=== PATIENT | female | born 1980 | race Caucasian/White ===

== ENCOUNTER 2023-08-13 10:56 | Outpatient (OUT) | payer OTHER, SELFPAY ==
--- NOTE | 2023-08-13 12:00 | XR_ITS ---
The [address] [address] Patient Name: NKECHI CARR MRN: [id number] date: 1980 Sex: F Assigned Patient Location: [facility] Current Patient Location: [facility] Accession/Order Number: [id number] Exam Date: 08/13/2023 12:10 Report Date: 08/13/2023 12:28 At the request of: MAGALI ROMERO Procedure: XR chest 2V EXAM: XR chest 2V HISTORY: Preop exam COMPARISON: None. TECHNIQUE: PA and lateral views of the chest. FINDINGS: The cardiomediastinal silhouette is normal. No focal consolidation is identified. There is no pneumothorax. No pleural effusion is noted. The osseous structures are intact. XR/XR chest 2V IMPRESSION: No acute cardiopulmonary process. Electronically authenticated by: DEX BRYAN Date: 08/13/2023 12:28
== END 2023-08-13 10:57 | disposition home or self-care (01) ==
LOC: PST 10:59
PROVIDERS: Visit Provider Urology
DX: Z01.810 Encounter for preprocedural cardiovascular examination (principal); N20.1 Calculus of ureter
CPT/HCPCS: 71046

== ENCOUNTER 2023-08-21 07:50 | Day surgery (SDC) | payer OTHER, SELFPAY ==
[2023-08-13 11:29] VITALS: PULSE 93; RESP 16; TEMP 36.3; O2SAT 98; BMI 23.8
[2023-08-21] VITALS (10 sets, daily range): BP systolic 113–145; BP diastolic 71–82; PULSE 65–106; RESP 10–18; TEMP 36.7; O2SAT 96–100; BMI 23.5
--- NOTE | 2023-08-21 | FL_ITS ---
[address] [address] Patient Name: NKECHI CARR MRN: [id number] date: 1980 Sex: F Assigned Patient Location: [facility] [place] Current Patient Location: Accession/Order Number: [id number] Exam Date: 08/21/2023 08:57 Report Date: 08/26/2023 09:13 At the request of: MAGALI ROMERO Procedure: FL fluoroscopy <1hr NON-READ EXAM: FL fluoroscopy <1hr NON-READ HISTORY: Left kidney stone TECHNIQUE: FINDINGS: Please see Operative Report. Electronically authenticated by: RADIOLOGIST NO Date: 08/26/2023 09:13
--- OUTSIDE RECORDS SUMMARY | 2023-08-21 07:55 | XMS_ITS | CCD ---
Author Name Unknown Address [address] [place] [address] Organization [facility] Care Team Providers Care Purchase Order Checker Name Role Phone Kaitlyn Beasley III Primary Care Physician Sadie Valdez Unavailable Unavailable ROSA NICHOLSON Attending Unavailable LE ENGLISH Attending Unavailable TROY .LE Consulting Unavailable DR TIFF MORLEY Primary Care Unavailable LE ENGLISH Admitting Unavailable MATIAS .VERO Attending Unavailable DR YASMANI NONE LISTED Primary Care Unavaila LUZ [place] Consulting Unavailable LUE .VERO Admitting Unavailable LUE .VERO Consulting Unavailable DR TIFF MORLEY Primary Care Unavailable MATIAS ., VERO Darnell Admitting Unavailable MATIAS .VERO Attending Unavailable DR YASMANI NONE LISTED Primary Care Unavaila ble LUE ., VERO Darnell Admitting Unavailable LUE .VERO Attending Unavailable DR AIME ADAMS Consulting Unavailable MATIAS .VERO Consulting Unavailable STEPHEN MUNOZ Consulting Unavailable TONY MEJIAS Consulting Unava ilRAUL Preston Consulting Unavailable DR TIFF MORLEY Primary Care Unavailable TROY .LE Admitting Unavailable LE ENGLISH Attending Unavailable DR AIME ADAMS Consulting Unavailable LE ENGLISH Consulting Unavailable DR JAMIE BEASLEY Consulting Unavailable Ramos RODRIGUEZ, Kaitlyn GASPAR Unavailable CLIFFORD PEDROZA Attending Unavailable KAITLYN BEASLEY III Referring UnavailCLIFFORD Trejo Referring Unavailable Walter COLBY Attending Unavailable Vasile Sahni Attending Unavailable Venessa Vasquez Admitting Unavailable Wu ROMERO Consulting Unavailable MD Wu ROMERO Consulting Unavailable Song NAYLOR Consulting Unavailable ROMERO, Wu R Consulting Unavailable ROMERO, Wu R Consulting Unavailable ROMERO, Wu R Consulting Unavailable ROMERO, Wu R Consulting Unavailable ROMERO, Wu R Consulting Unavailable ROMERO, Wu R Consulting Unavailable ROMERO, Wu R Consulting Unavailable ROMERO, Wu R Consulting Unavailable ROMERO, Wu R Consulting Unavailable ROMERO, Wu R Consulting Unavailable ROMERO, Wu R Consulting Unavailable Walter COLBY Attending Unavailable Kaylie RUDD Attending Unavailable ROMERO, Wu R Attending Unavailable Beasley, Kaitlyn R Attending Unavailable Beasley, Kaitlyn R Admitting Unavailable Beasley, Kaitlyn R Attending Unavailable Beasley, Kaitlyn R Referring Unavailable Beasley, Kaitlyn R Admitting Unavailable Walter COLBY Attending Unavailable Walter COLBY Admitting Unavailable Allergies Allergy Classification Reported Allergen(s) Allergy Type Date of Onset Reaction(s) Facility (17 sources) Acetaminophen / HYDROcodone; Translations: [acetaminophen-hyd rocodone] Drug Allergy 01-20-2009 [facility] (16 sources) HYDROcodone; Translations: [hydrocodone] Drug Allergy itch [facility] (18 sources) Morphine; Translations: [morphine] Drug Allergy 01-20-2009 Itching [facility] (1 source) Acetaminophen / HYDROcodone Drug Allergy 12-27-2013 [facility] (1 source) Morphine Drug Allergy 12-27-2009 [facility] (1 source) Acetaminophen / HYDROcodone; Translations: [HYDROCODONE-ACETA MINOPHEN] Drug Allergy 01-20-2009 [facility] Medications Current Medications Medication Drug Class(es) Dates Sig (Normalized) Sig (Original) acetaminophen 325 mg oral tablet (8 sources) Start: 02-16-2021 take 2 tablets by mouth every six hours as needed for pain acetaminophen 325 mg Tab 650 mg = 2 tab(s), Oral, q6hr, PRN Pain, Refills(s) 0 Start Date: 02/16/21 Status: Ordered busPIRone hydrochloride 7.5 mg oral tablet (8 sources) Start: 05-26-2019 take 1 tablet by mouth twice daily busPIRone 7.5 mg oral tablet 7.5 mg = 1 tab(s), Oral, BID, Anxiety Start Date: 05/26/19 Status: Ordered cyproheptadine hydrochloride 4 mg oral tablet (8 sources) Start: 02-14-2021 take 2 tablets by mouth at bedtime cyproheptadine 4 mg Tab 8 mg = 2 tab(s), Oral, Bedtime, Refills(s) 0, Headache Start Date: 02/14/21 Status: Ordered eluxadoline 100 mg oral tablet (9 sources) mu-Opioid Receptor Agonist Start: 11-21-2020 End: 02-27-2022 take 1 tablet by mouth twice daily eluxadoline 100 mg oral tablet 100 mg = 1 tab(s), Oral, BID, # 60 tab(s), Refills(s) 2, Pharmacy: [facility], 152, cm, 11/21/20 12:15:00 EDT, Height/Length Dosing, 57.5, kg, 11/21/20 12:15:00 EDT, Weight Dosing Start Date: 11/21/20 Status: Ordered fluticasone propionate 0.05 mg/actuat metered dose nasal spray (5 sources) Corticosteroid Start: 02-14-2021 take 2 spray(s) nasal route once daily fluticasone 0.05 mg/inh Nasal [place] 2 spray(s), Nasal, Daily, each nostril, Allergy symptoms Start Date: 02/14/21 Status: Ordered fluticasone 0.05 mg/inh Nasal [place] (3 sources) Start: 02-14-2021 take 2 spray(s) nasal route once daily fluticasone 0.05 mg/inh Nasal [place] 2 spray(s), Nasal, Daily, each nostril, Allergy symptoms Start Date: 02/14/21 Status: Ordered levoFLOXacin 750 mg oral tablet (1 source) Quinolone Antimicrobial Start: 07-23-2023 End: 08-02-2023 take 1 tablet by mouth once daily Levaquin 750 mg Tab 750 mg = 1 tab(s), Oral, Daily, X 10 day(s), # 10 tab(s), Refills(s) 0, Pharmacy: [facility], 152, cm, 11/27/23 17:09:00 EST, Height/Length Dosing, 52.5, kg, 07/21/23 17:09:00 EST, Weight Dosing Start Date: 07/23/23 Stop Date: 08/02/23 Status: Ordered nortriptyline 10 mg oral capsule (8 sources) Tricyclic Antidepressant Start: 10-01-2021 take 1 capsule by mouth three times daily nortriptyline 10 mg Cap 10 mg = 1 cap(s), Oral, TID, Refills(s) 0 Start Date: 10/01/21 Status: Ordered omeprazole 40 mg delayed release oral capsule (12 sources) Proton Pump Inhibitor Start: 11-21-2020 take 1 capsule by mouth once daily omeprazole 40 mg Cap-DR 40 mg = 1 cap(s), Oral, Daily, # 30 cap(s), Refills(s) 0, Pharmacy: [facility], 152, cm, 11/29/21 12:15:00 EDT, Height/Length Dosing, 62.7, kg, 11/21/21 9:52:00 EDT, Weight Dosing Start Date: 01/28/22 Status: Ordered omeprazole 40 mg Cap-DR (2 sources) Start: 11-21-2020 take 1 capsule by mouth once daily omeprazole 40 mg Cap-DR 40 mg = 1 cap(s), Oral, Daily, # 30 cap(s), Refills(s) 11, Pharmacy: [facility], 152, cm, 11/21/20 12:15:00 EDT, Height/Length Dosing, 57.5, kg, 11/21/20 12:15:00 EDT, Weight Dosing Start Date: 11/21/20 Status: Ordered 24 hr oxybutynin chloride 5 mg extended release oral tablet (3 sources) Cholinergic Muscarinic Antagonist Start: 2022 End: 06-21-2022 take 1 tablet by mouth once daily as needed oxybutynin 5 mg ER Tab 5 mg = 1 tab(s), Oral, Daily, PRN Urinary discomfort, X 14 day(s), # 21 tab(s), Refills(s) 0, Pharmacy: [facility], 152, cm, 06/05/22 19:43:00 EDT, Height/Length Dosing, 57, kg, 06/05/22 19:43:00 EDT, Weight Dosing Start Date: 06/07/22 Stop Date: 06/21/22 Status: Ordered phenazopyridine hydrochloride 100 mg oral tablet (4 sources) Start: 2022 Pyridium 100 mg Tab 100 mg = 1 tab(s), Oral, TIDPC, PRN Urinary discomfort, # 21 tab(s), Refills(s) 0, Pharmacy: [facility], 152, cm, 06/05/22 19:43:00 EDT, Height/Length Dosing, 57, kg, 06/05/22 19:43:00 EDT, Weight Dosing Start Date: 06/07/22 Status: Ordered tamsulosin hydrochloride 0.4 mg oral capsule (5 sources) alpha-Adrenergic Buck Start: 07-23-2023 End: 07-27-2023 take 1 capsule by mouth once daily as needed Flomax 0.4 mg Cap 0.4 mg = 1 cap(s), Oral, Daily, PRN Urinary discomfort, X 4 day(s), # 4 cap(s), Refills(s) 0, Pharmacy: [facility], 152, cm, 07/21/23 17:09:00 EST, Height/Length Dosing, 52.5, kg, 07/21/23 17:09:00 EST, Weight Dosing Start Date: 07/23/23 Stop Date: 07/27/23 Status: Ordered Start: 07-17-2022 End: 07-17-2022 Flomax 0.4 mg Cap 0.4 mg = 1 cap(s), Cap, Oral, Start date 07/17/22 9:00:00 EST, 07/17/22 4:00:00 EST Start Date: 07/17/22 Stop Date: 07/17/22 Status: Completed Start: 2022 End: 06-21-2022 take 1 capsule by mouth once daily tamsulosin 0.4 mg Cap 0.4 mg = 1 cap(s), Oral, Daily, X 14 day(s), # 14 cap(s), Refills(s) 0, Pharmacy: [facility], 152, cm, 06/05/22 19:43:00 EDT, Height/Length Dosing, 57, kg, 06/05/22 19:43:00 EDT, Weight Dosing Start Date: 06/07/22 Stop Date: 06/21/22 Status: Ordered tiZANidine 4 mg oral tablet (9 sources) Central alpha-2 Adrenergic Agonist Start: 04-30-2015 take 1 tablet by mouth every eight hours as needed for pain tiZANidine 4 mg Tab 4 mg = 1 tab(s), Oral, q8hr, PRN Muscle pain, Refills(s) 0, Muscle pain Start Date: 04/30/15 Status: Ordered End: 05-12-2023 take 1 tablet by mouth once daily at bedtime tiZANidine (ZANAFLEX) 4 mg tablet Take 4 mg by mouth daily at bedtime. 0 05/12/2023 Discontinued Comment on above: Take 4 mg by mouth d aily at bedtime. Completed/Discontinued Medications Medication Drug Class(es) Dates Sig (Normalized) Sig (Original) cephalexin 500 mg oral capsule (14 sources) Cephalosporin Antibacterial Start: 07-10-2022 take 1 capsule by mouth once daily Keflex 500 mg Cap 500 mg = 1 cap(s), Oral, q12hr, take 1 capsule the day prior to procedure, take 2nd capsule the day of procedure, # 2 cap(s), Refills(s) 0, Pharmacy: [facility], 152, cm, 06/14/22 10:19:00 EDT, Height/Length Dosing, 57, kg, 06/14/22 10:19:0... Start Date: 07/10/22 Status: Ordered Start: 2022 End: 06-17-2022 take 1 capsule by mouth four times daily Keflex 500 mg Cap 500 mg = 1 cap(s), Oral, QID, X 10 day(s), # 40 cap(s), Refills(s) 0, Pharmacy: [facility], 152, cm, 06/05/22 19:43:00 EDT, Height/Length Dosing, 57, kg, 06/05/22 19:43:00 EDT, Weight Dosing Start Date: 06/07/22 Stop Date: 06/17/22 Status: Ordered Start: 11-21-2021 Keflex 500 mg Cap 500 mg = 1 cap(s), Oral, As Directed, # 2 cap(s), Refills(s) 0, Pharmacy: [facility], 152, cm, 11/21/21 9:52:00 EDT, Height/Length Dosing, 62.7, kg, 11/21/21 9:52:00 EDT, Weight Dosing Start Date: 11/21/21 Status: Ordered chlordiazePOXIDE hydrochloride 5 mg / clidinium bromide 2.5 mg oral capsule (1 source) Anticholinergic, Benzodiazepine Start: 04-18-2011 End: 05-12-2023 take 1 capsule by mouth at bedtime, then take 5 capsules by mouth once chlordiazepoxide-clidinium (LIBRAX, WITH CLINIDIUM,) 5-2.5 mg ORAL per capsule Take 1 capsule by mouth before meals and at bedtime. 0 04/18/2011 05/12/2023 Discontinued Comment on above: Take 1 capsule by mo ut before meals and at bedtime. gabapentin 300 mg oral capsule (1 source) Anti-epileptic Agent End: 05-12-2023 take 1 capsule by mouth twice daily gabapentin (NEURONTIN) 300 mg capsule Take 300 mg by mouth twice daily. 0 05/12/2023 Discontinued Comment on above: Take 300 mg by mouth twice daily. ibuprofen 800 mg oral tablet (1 source) Nonsteroidal Anti-inflammatory Drug take 1 tablet by mouth every six hours as needed ibuprofen 800 mg tablet Take 800 mg by mouth every 6 hours as needed. 0 Active Comment on above: Take 800 mg by mouth every 6 hours as needed. MEDICATION, NON-DATABASE (1 source) End: 05-12-2023 MEDICATION, NON-DATABASE Problems Active Problems Problem Classification Problem Date Documented Date Episodic/Chronic Abdominal pain (17 sources) Flank pain; Translations: [Unspecified abdominal pain] Onset: 2 03-16-2020 Episodic Anxiety disorders (17 sources) Anxiety; Translations: [Anxiety disorder, unspecified] Onset: 2 02-11-2019 Chronic Bacterial infection; unspecified site (1 source) Bacteremia; Translations: [Bacteremia] Onset: 3 Episodic Calculus of urinary tract (20 sources) Kidney stone; Translations: [Calculus of kidney] Onset: 2 Episodic Complication of device; implant or graft (15 sources) Retained ureteric stent 11-21-2021 Episodic Esophageal disorders (16 sources) Gastroesophageal reflux disease without esophagitis; Translations: [Gastro-esophageal reflux disease without esophagitis] Onset: 2 Chronic Essential hypertension (1 source) Essential (primary) hypertension; Translations: [ESSENTIAL PRIMARY HYPERTENSION] Onset: 2 Chronic Fluid and electrolyte disorders (3 sources) Hypo-osmolality and or hyponatremia; Translations: [Hypo-osmolality and hyponatremia] Onset: 2 Episodic Genitourinary symptoms and ill-defined conditions (3 sources) Device in situ; Translations: [Presence of urogenital implants] Onset: 2 Chronic Genitourinary symptoms and ill-defined conditions (1 source) Urinary tract obstruction; Translations: [Obstructive and reflux uropathy, unspecified] Onset: 2 Episodic Headache; including migraine (15 sources) Headache 05-22-2019 Episodic Mood disorders (17 sources) Mixed bipolar affective disorder, moderate; Translations: [Bipolar disorder] Onset: 2 05-17-2019 Chronic Nonmalignant breast conditions (4 sources) Unspecified lump in the right breast, upper inner quadrant; Translations: [UNS LUMP IN RT BREAST UPR INR QUAD] Onset: 3 Episodic Other aftercare (1 source) Long-term current use of drug therapy; Translations: [Other fci (current) drug therapy] Onset: 3 Episodic Other connective tissue disease (15 sources) Fibromyositis 03-19-2014 Episodic Other connective tissue disease (1 source) Fibromyalgia; Translations: [Fibromyalgia] Onset: 2 Episodic Other diseases of kidney and ureters (15 sources) Hydronephrosis 02-14-2021 Episodic Other diseases of kidney and ureters (15 sources) Hydroureter 02-14-2021 Episodic Other female genital disorders (1 source) Dyspareunia; Translations: [Dyspareunia] Onset: 3 05-20-2013 Chronic Other female genital disorders (15 sources) Polyp of corpus uteri 11-05-2013 Episodic Other female genital disorders (4 sources) Other specified noninflammatory disorders of vagina; Translations: [OTH SPEC NONINFLAMMATORY D/O VAGINA] Onset: 3 Episodic Other gastrointestinal disorders (20 sources) Irritable bowel syndrome; Translations: [Irritable bowel syndrome without diarrhea] Onset: 2 11-05-2013 Chronic Other gastrointestinal disorders (2 sources) Constipation, unspecified; Translations: [Constipation, unspecified] Onset: 2 Episodic Other injuries and conditions due to external causes (1 source) Foreign body in bladder; Translations: [Foreign body in bladder, initial encounter] Onset: 2 Episodic Other nutritional; endocrine; and metabolic disorders (1 source) Overweight in adulthood with body mass index of 25 or more but less than 30; Translations: [Body mass index (BMI) 29.0-29.9, adult] Onset: 2 Episodic Other nutritional; endocrine; and metabolic disorders (15 sources) Body mass index 25-29 - overweight 11-03-2019 Episodic Residual codes; unclassified (1 source) H/O: Disorder; Translations: [Personal history of other specified conditions] Onset: 2 Episodic Residual codes; unclassified (2 sources) Procedure carried out on subject; Translations: [Encounter for prophylactic measures, unspecified] Onset: 2 Episodic Septicemia (except in labor) (3 sources) Sepsis; Translations: [Sepsis, unspecified organism] Onset: 2 Episodic Spondylosis; intervertebral disc disorders; other back problems (15 sources) Degeneration of intervertebral disc 05-22-2019 Chronic Spondylosis; intervertebral disc disorders; other back problems (15 sources) Cervical radiculopathy 02-11-2019 Episodic Substance-related disorders (20 sources) Cannabis dependence, continuous; Translations: [Smoker] Onset: 2 02-11-2019 Chronic Comment on above: Added secondary to d ocumentation in Social History. Unclassified (15 sources) Asymptomatic microscopic hematuria 03-16-2020 Unclassified (1 source) CONTACT W/AND (SUSP) EXPOS COVID-19; Translations: [CONTACT W/AND (SUSP) EXPOS COVID-19] Onset: 2 Urinary tract infections (19 sources) Urinary tract infectious disease; Translations: [Acute tubulointerstitial nephritis] Onset: 2 02-14-2021 Episodic Past or Other Problems Problem Classification Problem Date Documented Date Episodic/Chronic Contraceptive and procreative management (1 source) Intrauterine contraceptive device in situ; Translations: [Encounter for routine checking of intrauterine contraceptive device] Onset: 04-19-2011 04-19-2011 Episodic Deficiency and other anemia (1 source) Anemia, unspecified; Translations: [ANEMIA UNSPECIFIED] Onset: 07-11-2022 Episodic Other connective tissue disease (1 source) Fibromyalgia; Translations: [FIBROMYALGIA] Onset: 07-11-2022 Episodic Substance-related disorders (2 sources) Cannabis misuse; Translations: [Cannabis use, unspecified, uncomplicated] Onset: 06-06-2022 Episodic Results Test Name Value Interpretation Reference Range Facility Insurance Correspondenceon 1 10-14-2022 Insurance Correspondence [id number] Normal [facility] Consent for Procedure/Surger yon 07-31-2023 Consent for Procedure/Surgery [id number] Normal [facility] Patient Educationon 07-31-20 Patient Education Nephrology Laser Therapy for Kidney Stones Laser therapy for kidney stones is a procedure to break up small, hard mineral deposits that form in the kidney (kidney stones). The procedure is done using a device that produces a focused beam of light (laser). The laser breaks up kidney stones into pieces that are small enough to be passed out of the body through urination or removed from the body during the procedure. You may need laser therapy if you have kidney stones that are painful or block your urinary tract. This procedure is done by inserting a tube (ureteroscope) into your kidney through the urethral opening. The urethra is the part of the body that drains urine from the bladder. In women, the urethra opens above the vaginal opening. In men, the urethra opens at the tip of the penis. The ureteroscope is inserted through the urethra, and surgical instruments are moved through the bladder and the muscular tube that connects the kidney to the bladder (ureter) until they reach the kidney. Tell a health care provider about: ? Any allergies you have. ? All medicines you are taking, including vitamins, herbs, eye drops, creams, and zfwt-clb-abrnypa medicines. ? Any problems you or family members have had with anesthetic medicines. ? Any blood disorders you have. ? Any surgeries you have had. ? Any medical conditions you have. ? Whether you are or may be . What are the risks? Generally, this is a safe procedure. However, problems may occur, including: ? Infection. ? Bleeding. ? Allergic reactions to medicines. ? Damage to the urethra, bladder, or ureter. ? Urinary tract infection (UTI). ? Narrowing of the urethra (urethral stricture). ? Difficulty passing urine. ? Blockage of the kidney caused by a fragment of kidney stone. What happens before the procedure? Medicines ? Ask your health care provider about: ? Changing or stopping your regular medicines. This is especially important if you are taking diabetes medicines or blood thinners. ? Taking medicines such as aspirin and ibuprofen. These medicines can thin your blood. Do not take these medicines unless your health care provider tells you to take them. ? Taking parl-ztg-spdvmvx medicines, vitamins, herbs, and supplements. Eating and drinking Follow instructions from your health care provider about eating and drinking, which may include: ? 8 hours before the procedure ? stop eating heavy meals or foods, such as meat, fried foods, or fatty foods. ? 6 hours before the procedure ? stop eating light meals or foods, such as toast or cereal. ? 6 hours before the procedure ? stop drinking milk or drinks that contain milk. ? 2 hours before the procedure ? stop drinking clear liquids. Staying hydrated Follow instructions from your health care provider about hydration, which may include: ? Up to 2 hours before the procedure ? you may continue to drink clear liquids, such as water, clear fruit juice, black coffee, and plain tea. General instructions ? You may have a physical exam before the procedure. You may also have tests, such as imaging tests and blood or urine tests. ? If your ureter is too narrow, your health care provider may place a soft, flexible tube (stent) inside of it. The stent may be placed days or weeks before your laser therapy procedure. ? Plan to have someone take you home from the hospital or clinic. ? If you will be going home right after the procedure, plan to have someone stay with you for 24 hours. ? Do not use any products that contain nicotine or tobacco for at least 4 weeks before the procedure. These products include cigarettes, e-cigarettes, and chewing tobacco. If you need help quitting, ask your health care provider. ? Ask your health care provider: ? How your surgical site will be marked or identified. ? What steps will be taken to help prevent infection. These may include: ? Removing hair at the surgery site. ? Washing skin with a germ-killing soap. ? Taking antibiotic medicine. What happens during the procedure? ? An IV will be inserted into one of your veins. ? You will be given one or more of the following: ? A medicine to help you relax (sedative). ? A medicine to numb the area (local anesthetic). ? A medicine to make you fall asleep (general anesthetic). ? A ureteroscope will be inserted into your urethra. The ureteroscope will send images to a video screen in the operating room to guide your surgeon to the area of your kidney that will be treated. ? A small, flexible tube will be threaded through the ureteroscope and into your bladder and ureter, up to your kidney. ? The laser device will be inserted into your kidney through the tube. Your surgeon will pulse the laser on and off to break up kidney stones. ? A surgical instrument that has a tiny wire basket may be inserted through the tube into your kidney to remove the pieces (more content not included)... Normal [facility] IntraOperative Documentson 1 09-28-2022 IntraOperative Documents [id number] [facility] Consent for Anesthesiaon Consent for Anesthesia [id number] [facility] Discharge Instructionson Discharge Instructions [id number] [facility] Comment on above: Other Comment: wrong patient Discharge Instructions [id number] [facility] General Message Officeon General Message Office --- --- --- --- - -- --- --- --- --- From: Linus AguayoInbox To: NKECHI CARR Sent: 07/24/23 02:30:14 AM EST Subject: Discharge Summary Ready to View A summary regarding your recent visit is available in the Documents section of your health record. Normal [facility] IntraOperative Documentson 1 09-23-2022 IntraOperative Documents [id number] Normal [facility] Main OR Intraoperative Recor don 07-24-2023 Main OR Intraoperative Record IntraOp Document Type FT Summary Primary Physician: Wu ROMERO MD Finalized Date/Time: 07/24/23 12:12:57 Pt. Name: NKECHI CARR Jo-Ann SotoB./Sex: 1980 Female Med Rec #: [id number] Physician: Venessa Vasquez MD Financial #: [id number] Pt. Type: I Room/Bed: [place] [address] Admit/Disch: 07/21/23 16:57:47 - 07/23/23 15:17:22 Institution: Case Times FT Entry 1 Patient Times In Room 07/23/23 07:37:00 Out Room 07/23/23 08:02:00 Procedure Times Start 07/23/23 07:48:00 Stop 07/23/23 07:53:00 Anesthesia Times Start 07/23/23 07:37:00 Stop 07/23/23 08:02:00 Last Modified By: Elizabeth Brito RN 07/23/23 08:02:22 General Comments: 07/24/23 Chart opened to review and send charges [facility] Case Attendance FT Entry 1 Entry 2 Entry 3 Case Attendee Faith RAMESH, oSng ROMERO MD, Felipe Gonzales Role Performed Anesthesiologist Surgeon - Primary Scrub - Primary Business Management Professor Time In 07/23/23 07:37:00 07/23/23 07:37:00 07/23/23 07:37:00 Time Out 07/23/23 08:02:00 07/23/23 08:02:00 07/23/23 08:02:00 Procedure CYSTOSCOPY RETROGRADE CYSTOSCOPY RETROGRADE CYSTOSCOPY RETROGRADE STENT INSERTION(Left) STENT INSERTION(Left) STENT INSERTION(Left) Comments DR ELIZONDO SUPERVISING Last Modified By: Daryl SANTA, Elizabeth Brito RN, Elizabeth Awad RN 07/23/23 08:02:23 07/23/23 08:02:23 07/23/23 08:02:23 Entry 4 Case Attendee Elizabeth Brito RN Role Performed Research Compliance Specialist - Relief Time In 07/23/23 07:37:00 Time Out 07/23/23 08:02:00 Procedure CYSTOSCOPY RETROGRADE STENT INSERTION(Left) Comments Last Modified By: Elizabeth Brito RN 07/23/23 08:02:23 Perioperative Protocols FT Pre-Care Text: Implements protective measures prior to operative or invasive procedure, confirms identity before the operative or invasive procedure, verifies operative procedure, surgical site, and laterality Entry 1 Procedure(s) CYSTOSCOPY RETROGRADE Patient Identity Birthday, ID Band STENT INSERTION(Left) Verified (select at Check, Patient least 2): Participation Consents / H and P Anesthesia Consent, Operative Site Present Verified HandP, Surgery/Procedure Marking Verified Consent Surgical Site Yes Laterality Verified Yes Verified Procedure Verified Yes Correct Patient Yes Position Verified Availability Equipment, Implant, Prep Dry n/a Verified (If Medication, X-ray Applicable) Time Out Song Lopez Time Out Complete 07/23/23 07:46:00 Participants HEATHER Carias MD, Andres Hutchinson Kendall R, Elizabeth Brito RN Outcomes Met? Yes Last Modified By: Elizabeth Brito RN 07/23/23 07:50:16 Post-Care Text: The patient is free from signs and symptoms of injury caused by extraneous objects Allergy Information FT Pre-Care Text: Verifies allergies Entry 1 Allergies Reviewed? Yes Allergies Reviewed Self/Patient With Outcomes Met? Yes Last Modified By: Elizabeth Brito RN 07/23/23 07:22:42 Post-Care Text: The patient received appropriate medication(s) safely administered during the perioperative period Surgical Procedures FT Entry 1 Procedure Description Procedure CYSTOSCOPY RETROGRADE Modifiers Left STENT INSERTION Surgeon Description CYSTOSCOPY WITH LEFT STENT PLACEMENT Primary Procedure Yes Primary Surgeon Wu ROMERO MD Start 07/23/23 07:48:00 Stop 07/23/23 07:53:00 Anesthesia Type General Surgical Service Urology Wound Class 2 - Clean-Contaminated Last Modified By: Elizabeth Brito RN 07/23/23 08:15:50 General Case Data FT Pre-Care Text: Classifies surgical wound, implements aseptic technique, initiates traffic control Entry 1 Case Information OR OR 1 FT Case Level Level 3 Wound Class 2 - Clean-Contaminated Specialty Urology ASA Class 2 Preop Diagnosis LEFT URETERAL STONE Postop Same As Preop Yes Postop Diagnosis LEFT URETERAL STONE Outcomes Met? Yes Last Modified By: Elizabeth Brito RN 07/23/23 07:22:36 Post-Care Text: The patient is free from signs and symptoms of infection Skin Assessment (Pre Procedure) FT Pre-Care Text: Implements protective measures to prevent skin/ tissue injury due to thermal or mechanical sources Evaluates for signs and symptoms of physical injury to skin and tissue Entry 1 Skin Integrity Intact, [place], Warm, and Skin Abnormality No Dry Outcomes Met? Yes Last Modified By: Elizabeth Brito RN 07/23/23 08:16:00 Post-Care Text: The patient is free from signs and symptoms of injury caused by extraneous objects Patient Positioning FT Pre-Care Text: Identifies physical alterations that require additional precautions for procedure-specific positioning, verifies presence of prosthetics or corrective devices, positions the patient, evaluates the patient for signs and symptoms of injury as a result of positioning Entry 1 Procedure CYSTOSCOPY RETROGRADE Body Position Low Lithotomy STENT INSERTION(Left) Fe (more content not included)... Normal [facility] Auto DiffOrdered By: SYSTEM SYSTEM on 07-23-2023 Basophils/100 WBC (Bld) 0.3 % Normal 0.0-2.0 F [facility]eAutoSS Comment on above: Order Comment: Order Added by Discern Expert. Performed By: #### 2 057319, [id number], 0474575, [id number] ####[facility] [address] [place] [address] Basophils/Leukocytes Auto (Bld) [Pure # fraction] 0.0 E9/L Normal 0.0-0.2 FT HemeAutoSS Comment on above: Order Comment: Order Added by Discern Expert. Performed By: #### 2 220225, [id number], 1637034, [id number] ####[facility] [address] [place] [address] Eosinophils/100 WBC (Bld) 0.1 % Normal 0.0-8.0 FT HemeAutoSS Comment on above: Order Comment: Order Added by Pretty Expert. Performed By: #### 2 478917, 73775746, 4167651, 8789214 ####[facility] [address] [address] Eosinophils/Leukocytes Auto (Bld) [Pure # fraction] 0.0 E9/L Normal 0.0-0.5 [facility]eAutoSS Comment on above: Order Comment: Order Added by Discern Expert. Performed By: #### 2 023536, [id number], 3865648, 4561852 ####[facility] [address] [address] Lymphocytes/100 WBC (Bld) 5.2 % Low 14.0-50.0 [facility]eAutoSS Comment on above: Order Comment: Order Added by Pretty Expert. Performed By: #### 2 710327, 44540162, 6642703, 2810384 ####[address] [address] Lymphocytes/Leukocytes Auto (Bld) [Pure # fraction] 0.7 E9/L Low 1.0-4.0 [facility] HemeAutoSS Comment on above: Order Comment: Order Added by Pretty Expert. Performed By: #### 2 305969, 46193080, 5522952, 6456229 ####[address] [address] Monocytes/100 WBC (Bld) 6.7 % Normal 4.0-14.0 F C HemeAutoSS Comment on above: Order Comment: Order Added by Discern Expert. Performed By: #### 2 280401, 44812753, 7387682, 5860423 ####[address] [address] Monocytes/Leukocytes Auto (Bld) [Pure # fraction] 0.9 E9/L Normal 0.2-1.0 [facility]eAutoSS Comment on above: Order Comment: Order Added by Pretty Expert. Performed By: #### 2 142169, 60362547, 6558759, 9668712 ####[address] [address] Neutrophils/100 WBC (Bld) 87.7 % High 36.0-75.0 FT HemeAutoSS Comment on above: Order Comment: Order Added by Discern Expert. Performed By: #### 2 922822, 38091630, 3532940, 7045385 ####[facility] [address] [place] [address] Neutrophils/Leukocytes Auto (Bld) [Pure # fraction] 11.4 E9/L High 2.0-7.5 FT HemeAutoSS Comment on above: Order Comment: Order Added by Discern Expert. Performed By: #### 2 260146, 02210107, 0179048, 8016514 ####[address] [place] [address] BMPOrdered By: SYSTEM SYSTEM on 07-23-2023 Anion gap [Moles/Vol] 5 mmol/L Low 6-16 F[facility] C Remisol Comment on above: Performed By: #### 2 239599, 33837158, 5269658, 2141199 ####[address] [place] [address] Calcium [Mass/Vol] 7.8 mg/dL Low 8.9-11.1 FT R emisol Comment on above: Performed By: #### 2 535760, 46718155, 9690235, 7536510 ####[facility] [address] [place] [address] Chloride [Moles/Vol] 109 mmol/L Normal 101-111 FT Remisol Comment on above: Performed By: #### 2 464280, 81678660, 8962349, 8938956 ####[facility] [address] [place] [address] CO2 [Moles/Vol] 23 mmol/L Normal 21-31 FT Esteban rosa Comment on above: Performed By: #### 2 875946, 05548061, 1317960, 5668436 ####[facility] [address] [place] [address] Creatinine [Mass/Vol] 1.1 mg/dL Normal 0.5-1.3 F[facility] C Remisol Comment on above: Performed By: #### 2 567387, 91136785, 9161159, 7911775 ####[facility] [address] [place] [address] Glucose [Mass/Vol] 96 mg/dL Normal 55-199 [facility] R emisol Comment on above: Interpretive Data: I f this glucose result represents a fasting glucose, interpretation should refer to the following reference range: 55-99 mg/dL Result Comment: If t his glucose result represents a fasting glucose, interpretation should refer to the following reference range: 55-99 mg/dL Performed By: #### 2 275559, 89826144, 9158670, 9873881 ####[facility] [address] [place] [address] Potassium [Moles/Vol] 3.4 mmol/L Low 3.5-5.3 F[facility] C Remisol Comment on above: Performed By: #### 2 777548, 48974543, 9039783, 4100671 ####[facility] [address] [place] [address] Sodium [Moles/Vol] 134 mmol/L Low 135-145 FT R emisol Comment on above: Performed By: #### 2 504134, 20527943, 6192604, 3653054 ####[facility] [address] [place] [address] Urea nitrogen [Mass/Vol] 13 mg/dL Normal 5-21 FT Remisol Comment on above: Performed By: #### 2 021549, 68024961, 3685172, 0651614 ####[facility] [address] [place] [address] BMPon 07-23-2023 Urea nitrogen/Creatinine [Mass ratio] 12 No Units Normal 10-20 [facility] Comment on above: Performed By: #### 2 287150, 65409757, 2710264, 8461300 ####[facility] [address] [place] [address] C Urineon 07-23-2023 Bacteria identified Cx Nom (U) Microbiology PROCEDURE: Urine Culture [R1] SOURCE: U CleanCatch BODY SITE: COLLECTED DATE/TIME: 07/21/2023 18:02 EST RECEIVED DATE/TIME: 07/21/2023 20:12 EST START DATE/TIME: 07/21/2023 20:12 EST FREE TEXT SOURCE: Bekah Thomas, Jennifer Godfrey M.D., Jennifer Woods FINAL REPORTS Final Report [] Verified Date/Time: 07/23/2023 09:24 EST 70,000 cfu/ml Escherichia coli SUSCEPTIBILITY RESULTS LEGEND: S=Susceptible, N/R=Not Reported, Blank=Data not available, or drug not advisable or tested, I=Intermediate, ESBL=Extended spectrum beta-lactamase, R=Resistant, TFG=Thymidine-depen dent strain, PARMJIT=Beta-lactamase positive, KALYAN=mcg/m;(mg/L), S*=Predicted susceptible interp, R*=Predicted resistant interp EC Antibiotic KALYAN Dilutn KALYAN Interp Amikacin <=16 S Ampicillin <=8 S Ampicillin/ <=8/4 S Sulbactam Aztreonam <=4 S Cefazolin <=2 S Cefepime <=2 S Cefoxitin <=8 S Ceftazidime <=1 S Ceftazidime/ <=8 S Avibactam Ceftriaxone <=1 S Ciprofloxacin <=1 S Ertapenem <=0.5 S Gentamicin <=4 S Levofloxacin <=2 S Meropenem <=1 S Nitrofurantoin <=32 S Piperacillin/ <=16 S Tazobactam Tetracycline <=4 S Tigecycline <=2 S Tobramycin <=4 S Trimethoprim/ <=2/38 S Sulfa Performing Locations R1: This test was performed at: [facility], [address] [place] [address], [address]- , , Normal [facility] Comment on above: Performed By: #### 1 [id number], [id number] ####[address] [address] CBC w/ Auto DiffOrdered By: Sheila Fry on 07-23-2023 Erythrocyte distribution width (RBC) [Ratio] 13.0 % Normal 10.9-14.2 [facility] HemeAutoSS Comment on above: Performed By: #### 2 723207, 51782165, 8274665, 8355643 ####[address] [address] Hematocrit (Bld) [Volume fraction] 32.6 % Low 34.0-46.0 [facility] HemeAutoSS Comment on above: Performed By: #### 2 170790, 29632605, 1911749, 9055735 ####[address] [address] Hemoglobin (Bld) [Mass/Vol] 11.1 g/dL Low 12.0-16.0 [facility] HemeAutoSS Comment on above: Performed By: #### 2 796359, 77567836, 6586650, 4389286 ####[address] [address] MCH (RBC) [Entitic mass] 30.1 pg Normal 27.0-34.0 [facility] HemeAutoSS Comment on above: Performed By: #### 2 458423, 99511337, 3058428, 8983854 ####[place] [address] MCHC (RBC) [Mass/Vol] 34.1 g/dL Normal 31.4-36.0 [facility] C HemeAutoSS Comment on above: Performed By: #### 2 264310, 38525039, 7494170, 3050830 ####[place] [address] MCV (RBC) [Entitic vol] 88.4 fL Normal 80.0-100.0 [facility] Comment on above: Performed By: #### 2 264100, 66862576, 0755830, 0381166 ####[place] [address] Platelet mean volume (Bld) [Entitic vol] 8.5 fL Normal 6.4-10.8 [facility]eAuto[facility] Comment on above: Performed By: #### 2 486053, 35397657, 5216912, 5773969 ####[place] [address] Platelets (Bld) [#/Vol] 173.0 E9/L Normal 150.0-500.0 [facility]eAutoSS Comment on above: Performed By: #### 2 643960, 62141726, 1907324, 7919888 ####[place] [address] RBC (Bld) [#/Vol] 3.7 E12/L Low 4.3-5.9 [facility]eAuto[facility] Comment on above: Performed By: #### 2 670258, 69114700, 6884798, 9044014 ####[place] [address] WBC corrected for nucl RBC Auto (Bld) [#/Vol] 13.0 E9/L High 4.0-11.0 [facility]Auto[facility] Comment on above: Performed By: #### 2 673632, 55671177, 2052134, 7216231 ####[place] [address] CHEMISTRYOrdered By: SYSTEM SYSTEM on 07-23-2023 Urea nitrogen/Creatinine [Mass ratio] 12 mg/mg Normal - [facility] Remisol Consent for Procedure/Surger yon 07-23-2023 Consent for Procedure/Surgery [id number] 25#[id number] Normal [facility] Consultation Noteon 07-23-20 Consultation Note Patient: NKECHI CARR Age: 43 years Sex: Female : 1980 Associated Diagnoses: None Author: HEATEHR BAILEY, Wu Piña History of Present Illness X this 43-year-old lady developed left flank pain about 2 months ago. She states that it was intermittent and it felt as though it was from a stone. It was not until 3 to 4 days ago when she developed shaking chills and fevers that her pain started to intensify. She finally presented to the emergency room with the above complaints. Her urine looked infected. She was pancultured. Her white count was 25,000. CT scan showed a 13 mm left UPJ stone causing ipsilateral hydronephrosis and perinephric stranding. There was also a 6 mm stone in the kidney and a 3 mm stone in the right kidney upper pole nonobstructing. She was admitted and given fluid resuscitation and Rocephin. Overnight her white count minimally decreased and she was also still having pain. Levaquin was then started. Today, her white count has come down to 13,000. She is still having pain. Upon questioning her further she states that she has had over 30 stones throughout her life. She gets at least a few every year. She unfortunately was discharged from our practice in the recent past due to repeat noncompliance with appointments. She was seen at [place] [facility] but nothing was done for her stones. Review of Systems ROS reviewed as documented in chart Health Status Allergies: Allergic Reactions (Selected) Severity Not Documented HYDROcodone- Itch. Morphine- Itching. Vicodin- Itching., Allergies (3) Active Reaction HYDROcodone itch morphine itching Vicodin itching Current medications: (Selected) Inpatient Medications Ordered Ativan 2 mg/mL Injection: 0.5 mg = 0.25 mL, Injection, IV Push, q4hr PRN Anxiety, Routine, Start date 07/21/23 21:46:00 EST, 07/21/23 21:46:00 EST HYDROmorphone 1 mg/mL injectable solution: 0.4 mg = 0.4 mL, Injection, IV Push, q4min PRN Pain for 5 dose(s), Stop date Limited # of times, Routine, Start date 07/23/23 7:17:00 EST, 07/23/23 7:17:00 EST Lactated Ringers IV Rosa 1000 mL 1,000 mL: 1,000 mL, IV, 100 mL/hr, Routine, Start date 07/23/23 7:17:00 EST, 10 hour(s), Total volume (mL): 1,000, 52.5 kg, 1.49, m2 Lactated Ringers IV Rosa 1000 mL 1,000 mL: 1,000 mL, IV, 150 mL/hr, Routine, Start date 07/23/23 5:02:00 EST, 6.7 hour(s), Total volume (mL): 1,000, 52.5 kg, 1.49, m2 NS 1000 mL Soln-IV 1,000 mL: 1,000 mL, IV, 150 mL/hr, Routine, Start date 07/21/23 20:40:00 EST, 6.7 hour(s), Total volume (mL): 1,000, 52.5 kg, 1.49, m2 Phenergan 25 mg/mL Injection: 12.5 mg = 0.5 mL, Injection, IV Push, q2min PRN Other (see comment) for 2 dose(s), Stop date Limited # of times, Routine, Start date 07/23/23 7:17:00 EST, 07/23/23 7:17:00 EST Zofran 4 mg/2 mL Injection: 4 mg = 2 mL, Injection, IV Push, q6hr PRN Nausea, Routine, Start date 07/21/23 20:40:00 EST, 07/21/23 20:40:00 EST acetaminophen additive + Generic Diluent 100 mL: 1,000 mg = 100 mL, Soln-IV, IV Piggyback, q6hr PRN Pain, Routine, Start date 07/21/23 20:40:00 EST, 400 mL/hr, Infuse over 15 minute(s) ceftriaxone additive + Sodium Chloride 0.9% intravenous solution 50 mL: 2,000 mg = 1 EA, Injection, IV Piggyback, Daily, Routine, Start date 07/22/23 9:00:00 EST, 100 mL/hr, Infuse over 30 minute(s) ketorolac 60 mg/2 mL Injection: 30 mg = 1 mL, Injection, IV Push, q6hr PRN Pain, Routine, Start date 07/21/23 20:40:00 EST, 07/21/23 20:40:00 EST Prescriptions Prescribed Keflex 500 mg Cap: 500 mg = 1 cap(s), Oral, q12hr, take 1 capsule the day prior to procedure, take 2nd capsule the day of procedure, # 2 cap(s), Refills(s) 0, Pharmacy: [facility], 152, cm, 06/14/22 10:19:00 EDT, Height/Length Dosing, 57, kg, 06/14/22 10:19:0..., Medications (10) Active Scheduled: (1) ceftriaxone + Sodium Chloride 0.9% Minibag 50 mL 2,000 mg 1 EA, IV Piggyback, Daily Continuous: (3) Lactated Ringers 1,000 mL 1,000 mL, IV, 150 mL/hr Lactated Ringers 1,000 mL 1,000 mL, IV, 100 mL/hr Sodium Chloride 0.9% 1,000 mL 1,000 mL, IV, 150 mL/hr PRN: (6) acetaminophen + Generic Diluent 100 mL 1,000 mg 100 mL, IV Piggyback, q6hr HYDROmorphone 1 mg/mL SOLN [F] 0.4 mg 0.4 mL, IV Push, q4min ketorolac (60 mg) 30 mg/mL Inj 2 mL [F] 30 mg 1 mL, IV Push, q6hr LORazepam 2 mg/mL Inj [F] 0.5 mg 0.25 mL, IV Push, q4hr ondansetron 2 mg/mL Inj [F] 4 mg 2 mL, IV Push, q6hr promethazine 25 mg/mL Inj [F] 12.5 mg 0.5 mL, IV Push, q2min Problem list: All Problems Fibromyalgia syndrome / SNOMED CT [id number] / Confirmed DDD (degenerative disc disease) / SNOMED CT [id number] / Confirmed Anxiety / SNOMED CT 87389775 / Confirmed Cervical radiculopathy / SNOMED CT 105432468 / Confirmed Headache / SNOMED CT 77728956 / Confirmed Cannabis dependence, continuous use / SNOMED CT 224487620 / Confirmed Flank pain / SNOMED CT 834339373 / Confirmed Ureteral stone / SNOMED CT 67754702 (more content not included)... Normal [facility] Comment on above: Result Comment: Elec tronically Signed By: HEATHER BAILEY, Wu Bobby.br\Date and Time Signed: 07/23/23 08:12 EST Inpatient Clinical Summaryon 07-23-2023 Inpatient Clinical Summary [place] [id number] Clinical Summary Person Information: Name: NKECHI CARR Age: 43 Years : 1980 Sex: Female PCP: Kaitlyn Beasley III, DO Marital Status: Single Race: White Ethnicity: Non- or Language: Filipino Visit Id: Visit Reason: Nausea; Flank pain; SEVERE PAIN - CAN'T BREATHE DEEP, WHOLE LEFT SIDE IS HURTING Speciality: Acuity: Enc Type: Inpatient Med Service: Medical Arrival: 07/21/2023 16:57:47 Discharge: Dispo Type: Admitted as IP to this Hosp Address: [address] [place] [id number] Provider Notes: Diagnosis: 1:Sepsis; 3:Obstruction of left ureteropelvic junction (UPJ) due to stone; 5:Bacteremia; 7:Anxiety; 8:Smoker; 10:On deep vein thrombosis (DVT) prophylaxis Problems Active IBS (irritable bowel syndrome) Chronic GERD Ureteral stent retained Hydroureter on right Hydronephrosis of right kidney Urinary tract infection Renal calculus, right Flank pain Smoker Kidney stone Asymptomatic microscopic hematuria BMI 29.0-29.9,adult DDD (degenerative disc disease) Headache Ureteral stone Cannabis dependence, continuous use Anxiety Cervical radiculopathy Fibromyalgia syndrome Smoking Status: Former Smoker Functional Status: Sensory Deficits: History of Falls: Mobility Assistance Prior to Admission: ADLs: Independent Current Level of Assistance for Self-Care/Mobility: Cognitive Status: Oriented x 3 Allergies Vicodin (itching) morphine (itching) HYDROcodone (itch) Measurements: Height: 149.86 cm Weight: 56.2 kg Blood Pressure: 117 mmHg / 79 mmHg BMI: 25.16 kg/m2 Procedures No Procedures Documented Immunizations No Immunizations Documented This Visit Final Med List: levofloxacin (Levaquin 750 mg Tab) 1 Tablets By Mouth every day for 10 Days. Refills: 0. tamsulosin (Flomax 0.4 mg Cap) 1 Capsules By Mouth every day as needed Urinary discomfort for 4 Days. Refills: 0. Care Team Members: Attending Physician: Venessa Vasquez MD Consulting Physician: Wu ROMERO MD Referring Physician: Follow up: With: Address: When: Wu ROMERO [facility], [address], [place] [address] Business (1) Comments: Doctor's office will call about appointment With: Address: When: Kaitlyn Beasley [address] [place] [address] Business (1) 07/29/2023 8:30 AM Patient Education Information: Kidney Stones; Pyelonephritis, Adult; Urosepsis, Adult Levaquin Normal [facility] Inpatient Patient Summaryon 07-23-2023 Inpatient Patient Summary [facility] [address] [place], [place] [address] Patient Discharge Instructions PERSON INFORMATION Name: NKECHI CARR Date of : 1980 Current Date: 07/23/2023 14:49:27 PHYSICIANS Admitting Physician: Venessa Vasquez MD Primary Care Physician: Kaitlyn Beasley III, DO PCP Comment: Discharge Diagnosis: 1:Sepsis; 3:Obstruction of left ureteropelvic junction (UPJ) due to stone; 5:Bacteremia; 7:Anxiety; 8:Smoker; 10:On deep vein thrombosis (DVT) prophylaxis Condition at Discharge: Stable NKECHI CARR has been given the following list of follow-up instructions, prescriptions, and patient education materials: PATIENT FOLLOW-UP INFORMATION Diet: Regular Discharge Activity: Activity as tolerated Discharge Restrictions: No driving for 24 hrs, Do not operate machinery or tools, Do not make important decisions for 24 hours, Do not drink alcoholic beverages for 24 hours Wound Care Instructions: Remove Your Dressing In Days Call Your Doctor For: IF UNABLE TO CONTACT YOUR PHYSICIAN AND YOU FEEL IT IS AN EMERGENCY, GO TO THE NEAREST EMERGENCY ROOM OR CALL 911 Home Treatment: Devices/Equipment: None Special Services: Additional Instructions: Urine Culture grew Ecoli (stool); Blood cultures negative x 2 days. Primary Care Physician to provide the following pending test results: None Follow up: With: Address: When: Wu ROMERO [facility], [address], [place] [address] Business (1) Comments: Doctor's office will call about appointment With: Address: When: [address], [facility] [place] [address] Business (1) 07/29/2023 8:30 AM In the event that this physician does not participate in your insurance network, please consult with your insurance company to find a nearby participating provider. Comment: LILLY Ware MICHELLE A, have received the attached patient education materials/instructi ons and have verbalized understanding: Patient Signature Date Clinican/Nurse Signature Date HERE ARE THE MEDICATION CHANGES THAT OCCURRED DURING YOUR HOSPITAL STAY New Medications [facility], [address] [place], [place] [id number], [phone] levofloxacin (Levaquin 750 mg Tab) 1 Tablets By Mouth every day for 10 Days. Refills: 0. Last Dose: Next Dose: tamsulosin (Flomax 0.4 mg Cap) 1 Capsules By Mouth every day as needed Urinary discomfort for 4 Days. Refills: 0. Last Dose: Next Dose: No Longer Take the Following Medications cephalexin (Keflex 500 mg Cap) 1 Capsules By Mouth every 12 hours. take 1 capsule the day prior to procedure, take 2nd capsule the day of procedure. Refills: 0. Comment: MEDICATION LIST PROVIDED FOR YOU IS A LIST OF YOUR CURRENT MEDICATIONS. PLEASE CARRY THIS WITH YOU AT ALL TIMES. levofloxacin (Levaquin 750 mg Tab) 1 Tablets By Mouth every day for 10 Days. Refills: 0. tamsulosin (Flomax 0.4 mg Cap) 1 Capsules By Mouth every day as needed Urinary discomfort for 4 Days. Refills: 0. Pharmacy Information: [facility] [place] Comment: PATIENT EDUCATION INFORMATION Instructions: Kidney Stones Kidney stones are solid, rock-like deposits that form inside of the kidneys. The kidneys are a pair of organs that make urine. A kidney stone may form in a kidney and move into other parts of the urinary tract, including the tubes that connect the kidneys to the bladder (ureters), the bladder, and the tube that carries urine out of the body (urethra). As the stone moves through these areas, it can cause intense pain and block the flow of urine. Kidney stones are created when high levels of certain minerals are found in the urine. The stones are usually passed out of the body through urination, but in some cases, medical treatment may be needed to remove them. What are the causes? Kidney stones may be caused by: ? A condition in which certain glands produce too much parathyroid hormone (primary hyperparathyroidism ), which causes too much calcium buildup in the blood. ? A buildup of uric acid crystals in the bladder (hyperuricosuria). Uric acid is a chemical that the body produces when you eat certain foods. It usually leaves the body in the urine. ? Narrowing (stricture) of one or both of the ureters. ? A kidney blockage that is present at (congenital obstruction). ? Past surgery on the kidney or the ureters. What increases the risk? The following factors may make you more likely to develop this condition: ? Having had a kidney stone in the past. ? Having a family history of kidney stones. ? Not drinking enough water. ? (more content not included)... Normal [facility] Inpatient Patient Summary NKECHI CARR :1980 Visit Date:07/21/2023 Inpatient Discharge Instructions Your Care Team Admitting Physician - Pedro BAILEY, Venessa Consulting Physician - Wu ROMERO MD Reason for Your Visit Pt presents to ED with complaints of left flank pain onset yesterday with nausea. hx of stones. Your Diagnosis Sepsis Calculus of ureter, Obstruction of left ureteropelvic junction (UPJ) due to stone Acute pyelonephritis Bacteremia Fibromyalgia Anxiety Smoker Other intermission coordinator (current) drug therapy, On deep vein thrombosis (DVT) prophylaxis Flank pain Nausea Tests Performed Automated Diff Blood Culture Charcoal -- Results Pending -- BMP BMP CBC w/ Auto Diff eGFR Hepatic Function Panel Lactic Acid Lipase Level PT & PTT UA With Cult Reflex CT Abdomen/Pelvis w/o Contrast XR Fluoroscopy Up to 1 Hour -- Results Pending -- Please visit your patient portal for your results or contact your primary care physician. This Is Your Medications List levofloxacin (Levaquin 750 mg Tab) tamsulosin (Flomax 0.4 mg Cap) [Image Removed: STOP]Stop taking these medications cephalexin (Keflex 500 mg Cap) Procedure History Cystoscopic removal of ureteric stent (07/22/2022), Cystoscopy (05/03/2022), Cystoscopy (04/04/2021), ESWL - Extracorporeal shockwave lithotripsy for renal calculus (03/15/2021), Cystoscopy (02/14/2021), Cystoscopy (05/26/2019),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 137085821 / Confirmed DDD (degenerative disc disease) / SNOMED CT [id number]- [id number] / Confirmed Fibromyalgia syndrome / SNOMED CT [id number]- [id number] / Confirmed Flank pain / SNOMED CT 321949194 / Confirmed Headache / SNOMED CT 14397695 / Confirmed Hydronephrosis of right kidney / SNOMED CT 94015882 / Confirmed Hydroureter on right / SNOMED CT 085062995 / Confirmed IBS (irritable bowel syndrome) / SNOMED CT 73317899 / Confirmed Kidney stone / SNOMED CT 206157447 / Confirmed Kidney stone on right side / SNOMED CT 261576931 / Confirmed Renal calculus, right / SNOMED CT 043453654 / Confirmed Smoker / SNOMED CT 048566869 / Confirmed Added secondary to documentation in Social History. Ureteral stent retained / SNOMED CT 1890588125 / Confirmed Ureteral stone / SNOMED CT 61467378 / Confirmed Urinary tract infection / SNOMED CT 823879069 / Confirmed Resolved: Bipolar I disorder, mixed, moderate with anxiety distress / SNOMED CT 101899566 Resolved: Irritable bowel syndrome / SNOMED CT [address] (more content not included)... Normal [facility] Comment on above: Result Comment: Elec tronically Signed By: Fabrice Jeronimo Jr., DO\.br\Date and Time Signed: 07/23/23 07:25 EST eGFROrdered By: MARCELL Darnell on 07-23-2023 GFR/1.73 sq M.predicted among non-blacks MDRD (S/P/Bld) [Vol rate/Area] 64 mL/min/1.73 m2 Normal >=59 [facility] Chem S Comment on above: Interpretive Data: C hronic kidney disease could be indicated at eGFR's of less than 60 mL/min/1.73m2. Kidney failure is indicated at less than 15 mL/min/1.73m2. Order Comment: Order added by Discern Expert. Result Comment: Net Developer With Wcf trena kidney disease could be indicated at eGFR's of less than 60 mL/min/1.73m2. Kidney failure is indicated at less than 15 mL/min/1.73m2. Performed By: #### 2 480795, [id number], 5446100, 9248744 ####[facility] [address] [place] [address] Auto Diffon 07-22-2023 Basophils/100 WBC (Bld) 0.2 % Normal 0.0-2.0 [facility] Comment on above: Order Comment: Order Added by Discern Expert. Performed By: #### 2 239308, [id number], 4892647, 5598414 #### [facility] [address] [place] [address] Basophils/Leukocytes Auto (Bld) [Pure # fraction] 0.1 E9/L Normal 0.0-0.2 [facility] Comment on above: Order Comment: Order Added by Discern Expert. Performed By: #### 2 799468, 16473747, 4607722, 8950590 #### [facility] [address] [place] [address] Eosinophils/100 WBC (Bld) 0.1 % Normal 0.0-8.0 [facility] Comment on above: Order Comment: Order Added by Discern Expert. Performed By: #### 2 606592, 63288733, 6156958, 8287437 #### [facility] [address] [place] [address] Eosinophils/Leukocytes Auto (Bld) [Pure # fraction] 0.0 E9/L Normal 0.0-0.5 [facility] Comment on above: Order Comment: Order Added by Pretty Expert. Performed By: #### 2 230081, 50379457, 8976702, 2467564 #### [facility] [address] [place] [address] Lymphocytes/100 WBC (Bld) 3.3 % Low 14.0-50.0 [facility] Comment on above: Order Comment: Order Added by Discern Expert. Performed By: #### 2 934993, [id number], 6967871, 4612704 #### [facility] [address] [place] [address] Lymphocytes/Leukocytes Auto (Bld) [Pure # fraction] 0.8 E9/L Low 1.0-4.0 [facility] Comment on above: Order Comment: Order Added by Discern Expert. Performed By: #### 2 745205, 96202080, 1798059, 3087976 #### [facility] [address] [place] [address] Monocytes/100 WBC (Bld) 7.6 % Normal 4.0-14.0 [facility] Comment on above: Order Comment: Order Added by Pretty Expert. Performed By: #### 2 428761, [id number], 1152468, 5491441 #### [facility] [address] [place] [address] Monocytes/Leukocytes Auto (Bld) [Pure # fraction] 1.9 E9/L High 0.2-1.0 [facility] Comment on above: Order Comment: Order Added by Pretty Expert. Performed By: #### 2 219077, 33193435, 6699839, 4231567 #### [facility] [address] [place] [address] Neutrophils/100 WBC (Bld) 88.8 % High 36.0-75.0 [facility] Comment on above: Order Comment: Order Added by Pretty Expert. Performed By: #### 2 702685, [id number], 9376542, 1849258 #### [facility] [address] [place] [address] Neutrophils/Leukocytes Auto (Bld) [Pure # fraction] 21.6 E9/L High 2.0-7.5 [facility] Comment on above: Order Comment: Order Added by Pretty Expert. Performed By: #### 2 865811, 86048442, 5665811, 3812307 #### [facility] [address] [place] [address] BMPon 07-22-2023 Anion gap [Moles/Vol] 11 mmol/L Normal 6-16 [facility] Comment on above: Performed By: #### 2 811270, 01254486, 0765804, 1188036 #### [facility] [address] [place] [address] Calcium [Mass/Vol] 8.1 mg/dL Low 8.9-11.1 [facility] Comment on above: Performed By: #### 2 102852, 99751788, 6519906, 7282418 #### [facility] [address] [place] [address] Chloride [Moles/Vol] 107 mmol/L Normal 101-111 [facility] Comment on above: Performed By: #### 2 404360, 72154135, 0053757, 2446680 #### [facility] [address] [place] [address] CO2 [Moles/Vol] 24 mmol/L Normal 21-31 [facility] Comment on above: Performed By: #### 2 534861, 58041206, 9382782, 4543663 #### [facility] [address] [place] [address] Creatinine [Mass/Vol] 1.3 mg/dL Normal 0.5-1.3 [facility] Comment on above: Performed By: #### 2 910749, 54005464, 6209743, 6661770 #### [facility] [address] [place] [address] Glucose [Mass/Vol] 105 mg/dL Normal 55-199 [facility] Comment on above: Result Comment: If t his glucose result represents a fasting glucose, interpretation should refer to the following reference range: 55-99 mg/dL Performed By: #### 2 023603, 26645181, 4080073, 5514565 #### [facility] [address] [place] [address] Potassium [Moles/Vol] 3.9 mmol/L Normal 3.5-5.3 [facility] Comment on above: Performed By: #### 2 313478, 71909005, 8698932, 9337839 #### [facility] [address] [place] [address] Sodium [Moles/Vol] 138 mmol/L Normal 135-145 [facility] Comment on above: Performed By: #### 2 611062, 45378965, 8045816, 6396501 #### [facility] [address] [place] [address] Urea nitrogen [Mass/Vol] 15 mg/dL Normal 5-21 [facility] Comment on above: Performed By: #### 2 810489, 54665863, 4659346, 1350212 #### [facility] [address] [place] [address] Urea nitrogen/Creatinine [Mass ratio] 12 No Units Normal 10-20 [facility] Comment on above: Performed By: #### 2 348585, 84132338, 2545394, 2120699 #### [facility] [address] [place] [address] CBC w/ Auto Diffon Erythrocyte distribution width (RBC) [Ratio] 12.9 % Normal 10.9-14.2 [facility] Comment on above: Performed By: #### 2 841880, 21454454, 8171801, 1368998 #### [facility] [address] [place] [address] Hematocrit (Bld) [Volume fraction] 35.8 % Normal 34.0-46.0 [facility] Comment on above: Performed By: #### 2 380820, 82298098, 0626333, 7104192 #### [facility] [address] [place] [address] Hemoglobin (Bld) [Mass/Vol] 11.9 g/dL Low 12.0-16.0 [facility] Comment on above: Performed By: #### 2 430149, 08756887, 2755090, 0838456 #### [facility] [address] [place] [address] MCH (RBC) [Entitic mass] 29.5 pg Normal 27.0-34.0 [facility] Comment on above: Performed By: #### 2 799355, 73247377, 3416316, 3472028 #### [facility] [address] [place] [address] MCHC (RBC) [Mass/Vol] 33.4 g/dL Normal 31.4-36.0 [facility] Comment on above: Performed By: #### 2 400201, 01246229, 8414128, 1014713 #### [facility] [address] [place] [address] MCV (RBC) [Entitic vol] 88.2 fL Normal 80.0-100.0 [facility] Comment on above: Performed By: #### 2 124084, 02313392, 8783832, 2254021 #### [facility] [address] [place] [address] Platelet mean volume (Bld) [Entitic vol] 7.9 fL Normal 6.4-10.8 [facility] Comment on above: Performed By: #### 2 820600, 51992369, 2421080, 0483156 #### [facility] [address] [place] [address] Platelets (Bld) [#/Vol] 254.0 E9/L Normal 150.0-500.0 [facility] Comment on above: Performed By: #### 2 233714, 80442105, 7417471, 8759202 #### [facility] [address] [place] [address] RBC (Bld) [#/Vol] 4.1 E12/L Low 4.3-5.9 [facility] Comment on above: Performed By: #### 2 732835, 84906656, 2415933, 3078038 #### [facility] [address] [place] [address] WBC corrected for nucl RBC Auto (Bld) [#/Vol] 24.4 E9/L High 4.0-11.0 [facility] Comment on above: Result Comment: Slid e reviewed by BR. Performed By: #### 2 731719, 13883922, 6515427, 6939441 #### [facility] [address] [place] [address] CHEMISTRYOrdered By: SYSTEM SYSTEM on 07-22-2023 Anion gap [Moles/Vol] 11 mmol/L Normal 6 - 16 mEq/L [facility] Calcium [Mass/Vol] 8.1 mg/dL Low 8.9 - 11. 1 mg/dL [facility] Chloride [Moles/Vol] 107 mmol/L Normal 101 - 1 11 mmol/L [facility] CO2 [Moles/Vol] 24 mmol/L Normal 21 - 31 mmol/L [facility] Creatinine [Mass/Vol] 1.3 mg/dL Normal 0.5 - 1.3 mg/dL [facility] GFR/1.73 sq M.predicted among non-blacks MDRD (S/P/Bld) [Vol rate/Area] 52 mL/min/1.73 m2 Low >=59mL/min/1 .73 m2 [facility] Comment on above: Interpretive Data: C hronic kidney disease could be indicated at eGFR's of less than 60 mL/min/1.73m2. Kidney failure is indicated at less than 15 mL/min/1.73m2. Glucose [Mass/Vol] 105 mg/dL Normal 55 - 199 mg/dL [facility] Comment on above: Interpretive Data: I f this glucose result represents a fasting glucose, interpretation should refer to the following reference range: 55-99 mg/dL Potassium [Moles/Vol] 3.9 mmol/L Normal 3.5 - 5.3 mmol/L [facility] Sodium [Moles/Vol] 138 mmol/L Normal 135 - 145 mmol/L [facility] Urea nitrogen [Mass/Vol] 15 mg/dL Normal 5 - 21 mg/d L [facility] Urea nitrogen/Creatinine [Mass ratio] 12 mg/mg Normal 10 - 20 [facility] HEMATOLOGYOrdered By: SYSTEM SYSTEM on 07-22-2023 Basophils/100 WBC (Bld) 0.2 % Normal 0.0 - 2.0 % [facility] Basophils/Leukocytes Auto (Bld) [Pure # fraction] 0.1 E9/L Normal 0.0 - 0.2 E9/L [facility] Eosinophils/100 WBC (Bld) 0.1 % Normal 0.0 - 8.0 % [facility] Eosinophils/Leukocytes Auto (Bld) [Pure # fraction] 0.0 E9/L Normal 0.0 - 0.5 E9/L [facility] Lymphocytes/100 WBC (Bld) 3.3 % Low 14.0 - 50.0 % [facility] Lymphocytes/Leukocytes Auto (Bld) [Pure # fraction] 0.8 E9/L Low 1.0 - 4.0 E9/L [facility] Monocytes/100 WBC (Bld) 7.6 % Normal 4.0 - 14.0 % [facility] Monocytes/Leukocytes Auto (Bld) [Pure # fraction] 1.9 E9/L High 0.2 - 1.0 E9/L [facility] Neutrophils/100 WBC (Bld) 88.8 % High 36.0 - 75.0 % [facility] Neutrophils/Leukocytes Auto (Bld) [Pure # fraction] 21.6 E9/L High 2.0 - 7.5 E9/L [facility] HEMATOLOGYOrdered By: Faustino Bearden on 07-22-2023 Erythrocyte distribution width (RBC) [Ratio] 12.9 % Normal 10.9 - 14.2 % [facility] Hematocrit (Bld) [Volume fraction] 35.8 % Normal 34.0 - 46.0 % [facility] Hemoglobin (Bld) [Mass/Vol] 11.9 g/dL Low 12.0 - 16.0 gm/dL [facility] MCH (RBC) [Entitic mass] 29.5 pg Normal 27. 0 - 34.0 pg [facility] MCHC (RBC) [Mass/Vol] 33.4 g/dL Normal 31.4 - 36.0 gm/dL [facility] MCV (RBC) [Entitic vol] 88.2 fL Normal 80.0 - 100.0 fL [facility] Platelet mean volume (Bld) [Entitic vol] 7.9 fL Normal 6.4 - 10.8 fL [facility] Heme[facility] Platelets (Bld) [#/Vol] 254.0 E9/L Normal 150. 0 - 500.0 E9/L [facility] RBC (Bld) [#/Vol] 4.1 E12/L Low 4.3 - 5.9 E12/L [facility] HemeAuto[facility] WBC corrected for nucl RBC Auto (Bld) [#/Vol] 24.4 E9/L High 4.0 - 11.0 E9/L [facility] Comment on above: Result Comment: Slid e reviewed by BR. Insurance Correspondence Off iceon 07-22-2023 Insurance Correspondence Office [id number] 63#[id number] Normal [facility] Insurance Correspondence Office [id number] 39#1.00TIFF Normal [facility] Interdisciplinary Note - Vinayak e Manageron 07-22-2023 Interdisciplinary Note - 3Rd [employer] CRM to room to discuss DC planning. Patient is awake, alert and oriented. Patient is from home alone, might need ride at DC. Patient verified PCP, home DME and insurance. Patient is here as inpatient for Obtructing stone and Pyelo. Patient is assigned to [facility], see notes. Patient has urology consult, possible OR today for obstructing stone. Patient denied any DC needs for HH, PM or DME. Patient was provided CRM contact, white board updated. DC date TBD, CRM following Normal [facility] Comment on above: Result Comment: Elec tronically Signed By: Alba Dickson\.francisco\Date and Time Signed: 07/22/23 11:39 EST Progress Note-Physicianon Progress Note-Physician Assessment/Plan 1. Sepsis (A41.9: Sepsis, unspecified organism Present on admit Secondary to obstructing stone, UTI/Pyelonephritis WBC 24.4, Tachycardia on tele, UA abnormal, Urine Cx pending, Blood cx pending IVF, IV Ceftriaxone- increase 2 gm QD 2. Obstruction of left ureteropelvic junction (UPJ) due to stone (N20.1: Calculus of ureter) CT showed a 1.3 cm UPJ stone in the left with moderate obstruction and inflammation Toradol or IV Tylenol prn pain Hydrate NS at 150 cc/hr Urology consulted, Dr Romero recommending NPO for OR. 3. Acute pyelonephritis (N10: Acute pyelonephritis) Due to above stone. Urine cx pending Continue Rocephin- increase to 2 gm daily Blood cx pending. 4. Fibromyalgia syndrome (M79.7: Fibromyalgia) Chronic, stable 5. Anxiety (F41.9: Anxiety disorder, unspecified) Chronic, stable No on any home medication per my review. Ordered Ativan IV prn 6. Smoker (F17.200: Nicotine dependence, unspecified, uncomplicated) Marijuana We strongly recommend to quit tobacco use. Cigarette smoking harms nearly every organ of the body, causes many diseases, and reduces the health of smokers in general. Quitting smoking lowers your risk for smoking-related diseases and can add years to your life. We encourage you to visit www.smokefree.gov access to helpful resources including free telephone support. If you decide on prescription treatment to help you quit, we would be happy to provide these. 7. On deep vein thrombosis (DVT) prophylaxis (Z79.899: Other fci (current) drug therapy) SCDs Orders: ceftriaxone + Sodium Chloride 0.9% intravenous solution 50 mL, 2,000 mg = 1 EA, Injection, IV Piggyback, Daily, Routine, Start date 07/22/23 9:00:00 EST, 100 mL/hr, Infuse over 30 minute(s) Subjective No new events overnight. Reports left flank pain. No recent Toradol. Occasional nausea, no emesis. Sinus tachycardia on telemetry, pressures stable. Febrile overnight NPO for possible OR later today Review of Systems ROS - Provider Constitutional: no fever, no chills, no sweats, no weakness Respiratory: no shortness of breath, no cough Cardiovascular: no chest pain Gastro: occasionalNausea no Emesis no diarrhea no constipation Objective Vitals & Measurements T: 36.8 ?C(Axillary) TMIN: 36.8 ?C(Axillary) TMAX: 38.0 ?C(Oral) HR: 109(Monitored) RR: 20 BP: 109/73 SpO2: 97% HT: 149.86 cm WT: 56.2 kg Intake & Output This visit (24 hour periods starting at 07:00 EST) 07/22/23 * 07/21/23 07/20/23 Total Summary Intake mL -- 3,143.14 -- Output mL -- 300 -- Fluid Balance -- 2,843.14 -- Intake (6) Sodium Chloride 0.9% mL -- 2,000 -- Sodium Chloride 0.9% intravenous solution 1,000 mL mL -- 1,088.89 -- Sodium Chloride 0.9%, ceftriaxone mL -- 50 -- ketorolac mL -- 2 -- lorazepam mL -- 0.25 -- ondansetron mL -- 2 -- Total -- 3,143.14 -- Output (1) Urine Voided mL -- 300 -- Total -- 300 -- Counts (0) * This column has not completed the indicated time period. Physical Exam General: Non-toxic appearing adult female alert, appears uncomfortable but no acute distress Skin: warm, dry intact Head: atraumatic, normocephalic Neck: Trachea midline, no JVD, no bruit Eye: normal conjunctiva, sclera clear ENMT: oral mucosa moist Cardiovascular: tachycardic rate and regular rhythm, nomurmurnormal peripheral perfusion Respiratory: Lungs CTA, respirations non labored Chest wall: no deformity. Gastrointestinal: soft, non distended, mild LLQ tenderness Back: + L CVAT , Normal ROM, Normal alignment. Extremities: no edema,no deformity, no trauma Neurological: oriented x 4, LOC appropriate for agesensation equal & normal bilaterally, speech normal Psychiatric: cooperative, affect appropriate for age, normal judgement, normal psychiatric thoughts. Lab Results WBC: 24.4 E9/L High (07/22/23 05:58:00) RBC: 4.1 E12/L Low (07/22/23 05:58:00) HGB: 11.9 gm/dL Low (07/22/23 05:58:00) Hct: 35.8 % (07/22/23 05:58:00) MCV: 88.2 fL (07/22/23 05:58:00) MCH: 29.5 pg (07/22/23 05:58:00) MCHC: 33.4 gm/dL (07/22/23 05:58:00) RDW: 12.9 % (07/22/23 05:58:00) Platelet: 254 E9/L (07/22/23 05:58:00) MPV: 7.9 fL (07/22/23 05:58:00) Neutro Auto: 88.8 % High (07/22/23 05:58:00) Lymph Auto: 3.3 % Low (07/22/23 05:58:00) [place] Auto: 7.6 % (07/22/23 05:58:00) Eos Auto: 0.1 % (07/22/23 05:58:00) Basophil Auto: 0.2 % (07/22/23 05:58:00) Neutro Absolute: 21.6 E9/L High (07/22/23 05:58:00) Lymph Absolute: 0.8 E9/L Low (07/22/23 05:58:00) [place] Absolute: 1.9 E9/L High (07/22/23 05:58:00) Eos Absolute: 0 E9/L (07/22/23 05:58:00) Basophil Absolute: 0.1 E9/L (07/22/23 05:58:00) PT: 13.5 second(s) High (07/21/23 18:34:00) INR: 1.2 (07/21/23 18:34:00) PTT: 30.8 second(s) (07/21/23 18:34:00) Glucose Lvl: 105 mg/dL (07/22/23 05:58:00) BUN: 15 mg/dL (07/22/23 05:58:00) Creatinine: 1.3 mg/dL (07/22/23 05:58 (more content not included)... Normal [facility] Comment on above: Result Comment: Elec tronically Signed By: Kelin MCKNIGHT CNP\.br\Date and Time Signed: 07/22/23 08:47 EST\.br\Electronically Co-Signed By: Vasile Sahni MD\.br\Date and Time Co-Signed: 07/22/23 14:00 EST eGFRon 07-22-2023 GFR/1.73 sq M.predicted among non-blacks MDRD (S/P/Bld) [Vol rate/Area] 52 mL/min/1.73 m2 Low >=59 [facility] Comment on above: Order Comment: Order added by Discern Expert. Result Comment: Net Developer With Wcf trena kidney disease could be indicated at eGFR's of less than 60 mL/min/1.73m2. Kidney failure is indicated at less than 15 mL/min/1.73m2. Performed By: #### 2 142424, 04977557, 6184576, 6397636 #### [facility] [address] [place] [address] Auto Diffon 07-21-2023 Basophils/100 WBC (Bld) 0.5 % Normal 0.0-2.0 [facility] Comment on above: Order Comment: Order Added by Discern Expert. Performed By: #### 2 931628, 0723193, 1479030, 3172919, 8446381, 74437333, 06550662 ####[facility] [address] [place] [address] Basophils/Leukocytes Auto (Bld) [Pure # fraction] 0.1 E9/L Normal 0.0-0.2 [facility] Comment on above: Order Comment: Order Added by Discern Expert. Performed By: #### 2 911492, 0844474, 6435772, 8355575, 0837929, 46536719, 75083976 ####[facility] [address] [place] [address] Eosinophils/100 WBC (Bld) 0.0 % Normal 0.0-8.0 [facility] Comment on above: Order Comment: Order Added by Discern Expert. Performed By: #### 2 310409, 2170622, 9887925, 7015421, 7240571, 10897169, 75423401 ####[facility] [address] [place] [address] Eosinophils/Leukocytes Auto (Bld) [Pure # fraction] 0.0 E9/L Normal 0.0-0.5 [facility] Comment on above: Order Comment: Order Added by Discern Expert. Performed By: #### 2 510349, 0885008, 4691739, 9784922, 2267490, 36130282, [id number] ####[address] [place] [address] Lymphocytes/100 WBC (Bld) 2.0 % Low 14.0-50.0 [facility] Comment on above: Order Comment: Order Added by Discern Expert. Performed By: #### 2 798595, 0600916, 9857485, 8945990, 6421498, 80757920, 65898609 ####[address] [place] [address] Lymphocytes/Leukocytes Auto (Bld) [Pure # fraction] 0.5 E9/L Low 1.0-4.0 [facility] Comment on above: Order Comment: Order Added by Discern Expert. Performed By: #### 2 567340, 6823880, 2081521, 3554755, 2592798, 67869195, [id number] ####[address] [address] Monocytes/100 WBC (Bld) 7.3 % Normal 4.0-14.0 [facility] Comment on above: Order Comment: Order Added by Discern Expert. Performed By: #### 2 701207, 9285652, 3264604, 7118721, 7015896, 49517136, [id number] ####[address] [address] Monocytes/Leukocytes Auto (Bld) [Pure # fraction] 1.9 E9/L High 0.2-1.0 [facility] Comment on above: Order Comment: Order Added by Discern Expert. Performed By: #### 2 820073, 7529559, 8245469, 3391964, 4008121, 13754863, [id number] ####[address] [place] [address] Neutrophils/100 WBC (Bld) 90.2 % High 36.0-75.0 [facility] Comment on above: Order Comment: Order Added by Discern Expert. Performed By: #### 2 848195, 8568508, 3784957, 6781665, 7715117, [id number], [id number] ####[facility] [address] [place] [address] Neutrophils/Leukocytes Auto (Bld) [Pure # fraction] 23.0 E9/L High 2.0-7.5 [facility] Comment on above: Order Comment: Order Added by Discern Expert. Performed By: #### 2 399960, 3767307, 1259094, 3955035, 2188449, 24592091, [id number] ####[facility] [address] [place] [address] BMP 07-21-2023 Creatinine [Mass/Vol] 1.1 mg/dL Normal 0.5-1.3 [facility] Comment on above: Performed By: #### 2 598052, 4180901, 4518273, 5243534, 3625612, 03597323, 44113340 ####[facility] [address] [place] [address] Urea nitrogen [Mass/Vol] 15 mg/dL Normal 5-21 [facility] Comment on above: Performed By: #### 2 025126, 6929848, 6040945, 2268063, 6334403, 44576148, 71306752 ####[facility] [address] [place] [address] Urea nitrogen/Creatinine [Mass ratio] 14 No Units Normal 10-20 [facility] Comment on above: Performed By: #### 2 343433, 2141459, 7988556, 1564884, 5623764, 18925070, 47062481 ####[facility] [address] [place] [address] Anion gap [Moles/Vol] 10 mmol/L Normal 6-16 [facility] Comment on above: Performed By: #### 2 095595, 8420091, 4756624, 2600452, 0931454, 63173055, 98962247 ####[facility] [address] [place] [address] Calcium [Mass/Vol] 8.8 mg/dL Low 8.9-11.1 [facility] Comment on above: Performed By: #### 2 990777, 8297538, 6154668, 7758536, 5193506, 18960245, 43104677 ####[facility] [address] [place] [address] Chloride [Moles/Vol] 101 mmol/L Normal 101-111 [facility] Comment on above: Performed By: #### 2 555197, 5249012, 0413611, 1319140, 7328023, 44280319, 37581282 ####[facility] [address] [place] [address] CO2 [Moles/Vol] 26 mmol/L Normal 21-31 [facility] Comment on above: Performed By: #### 2 659562, 7543426, 1537615, 3498936, 4397130, 43102299, 67995010 ####[facility] [address] [place] [address] Glucose [Mass/Vol] 116 mg/dL Normal 55-199 [facility] Comment on above: Result Comment: If t his glucose result represents a fasting glucose, interpretation should refer to the following reference range: 55-99 mg/dL Performed By: #### 2 445038, 4326197, 6274096, 6606133, 8355617, 44160188, 70322069 ####[facility] [address] [place] [address] Potassium [Moles/Vol] 3.8 mmol/L Normal 3.5-5.3 [facility] Comment on above: Performed By: #### 2 504459, 5871260, 0804254, 8988916, 1147763, 33235152, 70578652 ####[facility] [address] [facility] [address] Sodium [Moles/Vol] 133 mmol/L Low 135-145 [facility] Comment on above: Performed By: #### 2 454317, 4301989, 7792977, 5523367, 1335179, 03998951, 21477175 ####[address] [place] [address] CBC w/ Auto Diffon Erythrocyte distribution width (RBC) [Ratio] 12.6 % Normal 10.9-14.2 [facility] Comment on above: Performed By: #### 2 891829, 5340226, 7022361, 0543557, 1826383, 95900829, 38050330 ####[address] [place] [address] Hematocrit (Bld) [Volume fraction] 38.9 % Normal 34.0-46.0 [facility] Comment on above: Performed By: #### 2 586997, 8336198, 4716221, 6152084, 0676112, 63110542, 02936606 ####[address] [place] [address] Hemoglobin (Bld) [Mass/Vol] 13.1 g/dL Normal 12.0-16.0 [facility] Comment on above: Performed By: #### 2 294550, 8660211, 5558439, 8169150, 7486833, 18487842, 34998086 ####[address] [place] [address] MCH (RBC) [Entitic mass] 29.5 pg Normal 27.0-34.0 [facility] Comment on above: Performed By: #### 2 747734, 0800547, 4748928, 4556659, 2525924, 14984965, 25941556 ####[address] [place] [address] MCHC (RBC) [Mass/Vol] 33.7 g/dL Normal 31.4-36.0 [facility] Comment on above: Performed By: #### 2 658274, 7363066, 8991322, 5975232, 0278385, 19305255, 27529332 ####[address] [place] [address] MCV (RBC) [Entitic vol] 87.5 fL Normal 80.0-100.0 [facility] Comment on above: Performed By: #### 2 131774, 9116972, 3676582, 7716696, 5189912, 45284774, 43742948 ####[address] [place] [address] Platelet mean volume (Bld) [Entitic vol] 7.6 fL Normal 6.4-10.8 [facility] Comment on above: Performed By: #### 2 071760, 8633162, 8545580, 6944795, 7289590, 36003094, 55548651 ####[address] [address] Platelets (Bld) [#/Vol] 300.0 E9/L Normal 150.0-500.0 [facility] Comment on above: Performed By: #### 2 547336, 5427574, 1895483, 1999232, 7097999, 27589432, 55224316 ####[address] [address] RBC (Bld) [#/Vol] 4.4 E12/L Normal 4.3-5.9 [facility] Comment on above: Performed By: #### 2 195125, 2501567, 6864079, 8742659, 5688837, 24350538, 01276062 ####[address] [address] WBC corrected for nucl RBC Auto (Bld) [#/Vol] 25.5 E9/L High 4.0-11.0 [facility] Comment on above: Result Comment: Slid e reviewed by JS. Performed By: #### 2 860570, 9645774, 7369496, 9677894, 3954693, 26916182, 40690481 ####[address] [place] [address] CHEMISTRYOrdered By: SYSTEM SYSTEM on 07-21-2023 Lactate [Mass/Vol] 1.0 mmol/L Normal 0.5 - 2.2 mmol/L [facility] Albumin [Mass/Vol] 3.5 g/dL Normal 3.3 - 5.0 gm/dL [facility] Albumin/Globulin [Mass ratio] 1.2 {ratio} Normal 1.1 - 2.2 [facility] ALP [Catalytic activity/Vol] 54 [iU]/d Normal 21 - 98 Int._Unit/L [facility] ALT No additional P-5'-P [Catalytic activity/Vol] 12 [iU]/d Normal 6 - 46 Int._Unit/L [facility] Anion gap [Moles/Vol] 10 mmol/L Normal 6 - 16 mEq/L [facility] AST [Catalytic activity/Vol] 18 [iU]/d Normal 5 - 43 Int._Unit/L [facility] Bilirubin [Mass/Vol] 0.7 mg/dL Normal 0.0 - 1 .1 mg/dL [facility] Bilirubin.direct [Mass/Vol] 0.2 mg/dL Normal 0.1 - 0.4 mg/dL [facility] Bilirubin.indirect [Mass or moles/Vol] 0.5 mg/dL Normal 0.1 - 0.9 mg/dL [facility] Calcium [Mass/Vol] 8.8 mg/dL Low 8.9 - 11. 1 mg/dL [facility] Chloride [Moles/Vol] 101 mmol/L Normal 101 - 1 11 mmol/L [facility] CO2 [Moles/Vol] 26 mmol/L Normal 21 - 31 mmol/L [facility] Creatinine [Mass/Vol] 1.1 mg/dL Normal 0.5 - 1.3 mg/dL [facility] GFR/1.73 sq M.predicted among non-blacks MDRD (S/P/Bld) [Vol rate/Area] 64 mL/min/1.73 m2 Normal >=59mL/min/1 .73 m2 [facility] Chem S Comment on above: Interpretive Data: C hronic kidney disease could be indicated at eGFR's of less than 60 mL/min/1.73m2. Kidney failure is indicated at less than 15 mL/min/1.73m2. Globulin (S) [Mass/Vol] 3.0 g/dL Normal 1.4 - 4.0 gm/dL [facility] Glucose [Mass/Vol] 116 mg/dL Normal 55 - 199 mg/dL [facility] Comment on above: Interpretive Data: I f this glucose result represents a fasting glucose, interpretation should refer to the following reference range: 55-99 mg/dL Lipase [Catalytic activity/Vol] 31 U/L Normal 13 - 58 unit/L [facility] Potassium [Moles/Vol] 3.8 mmol/L Normal 3.5 - 5.3 mmol/L [facility] Protein [Mass/Vol] 6.5 g/dL Normal 6.0 - 7.8 gm/dL [facility] Sodium [Moles/Vol] 133 mmol/L Low 135 - 145 mmol/L [facility] Urea nitrogen [Mass/Vol] 15 mg/dL Normal 5 - 21 mg/d L [facility] Urea nitrogen/Creatinine [Mass ratio] 14 mg/mg Normal 10 - 20 [facility] COAGULATIONOrdered By: Murtaza Gomez on 07-21-2023 aPTT Coag (PPP) [Time] 30.8 s Normal 25.1 - 36.5 second(s) [facility] Auto Coag Comment on above: Interpretive Data: P arameter 15 days - 4 weeks 1 - 5 months 6 - 11 months 1 - 5 years 6 - 10 years 11 - 17 years PTT Mean: 35.4 (27.6-45.6) Mean: 33.5 (24.8-40.7) Mean: 32.4 (25.1-40.7) Mean: 31.6 (24.0-39.2) Mean: 31.6 (26.9-38.7) Mean: 31.0 (24.6-38.4) Pediatric Reference ranges were obtained from a study by Blake Cohen et al. prepared from 1437 samples obtained at 7 different centers using the same coagulation reagent and instrumentation as [facility]. Currently there are no coagulation studies available worldwide for children to 14 days, and no normal ranges. Heparin therapeutic range (represented by Anti-Factor Xa activity of 0.2 - 0.4 U/mL) corresponds to PTT of 56.6 - 109.0 sec. INR Coag (PPP) [Relative time] 1.2 {INR} Invalid Interpretation Code [facility] Comment on above: Interpretive Data: I NR results are specifically intended to assess patients stabilized on long-term Anticoagulation therapy suggested INR s Less Intensive Anticoagulation 2.0 3.0 Conventional Range 3.0 4.5 PT Coag (PPP) [Time] 13.5 s High 9.4 - 1 2.5 second(s) [facility] Comment on above: Interpretive Data: 1 5 days - 4 weeks 1 - 5 months 6 -11 months 1-5 years 6-10 years 11 -17 years Mean: 11.2 (9.5-12.6) Mean: 11.0 (9.7-12.8) Mean: 11.0 (9.8-13.0) Mean: 11.3 (9.9-13.4) Mean: 11.7 (10.0-14.6) Mean: 11.8 (10.0 - 14.1) Pediatric Reference ranges were obtained from a study by Blake Cohen et al. prepared from 1437 samples obtained at 7 different centers using the same coagulation reagent and instrumentation as [facility]. Currently there are no coagulation studies available worldwide for children to 14 days, and no normal ranges. CT Abdomen/Pelvis w/o Schuyler paniagua 07-21-2023 CT Abdomen/Pelvis w/o Contrast Exam Date/Time: 07/21/2023 19:09 EST Reason for Exam: Abdominal pain, acute, nonlocalized;Other (please specify) Report IMPRESSION: MODERATELY OBSTRUCTING APPROXIMATELY 1.3 CM LEFT UPJ CALCULUS WITH ILL-DEFINED SURROUNDING INFLAMMATION. INFECTION SHOULD BE EXCLUDED CLINICALLY. CLINICAL HISTORY: Abdominal pain, acute, nonlocalized. COMPARISON: 05/06/2023. TECHNIQUE: Spiral unenhanced images were obtained of the abdomen and pelvis without contrast. All CT scans at this facility use dose modulation, iterative reconstruction, and/or weight based dosing when appropriate to reduce radiation dose to as low as reasonably achievable. FINDINGS: Liver: Unremarkable. No mass or lesion identified without contrast. Biliary: The gallbladder is unremarkable. No bile duct dilation. Pancreas: Unremarkable. No mass or duct dilation identified without contrast. Spleen: Not enlarged. No mass identified without contrast. Adrenals: Unremarkable. Kidneys: Approximately 1.3 x 1.0 x 0.7 cm left UPJ calculus with moderate left hydronephrosis and ill-defined surrounding inflammation. Infection should be excluded clinically. Approximately 2 to 3 mm right upper pole renal calculus. No other significant urinary tract calculi or right hydronephrosis. GI tract: Minimal colonic diverticulosis without diverticulitis. No abnormal dilation or wall thickening. Lymph nodes: No pathologically enlarged lymph nodes. Mesentery/peritoneu m: No organized fluid collection, ascites, focal inflammatory changes, or mass. Retroperitoneum: No organized fluid collection, focal inflammatory changes or mass. Vasculature: No aneurysm. Pelvis: Trace low-density ascites in the pelvis. No mass or organized fluid collection. The urinary bladder, uterus, and adnexa are unremarkable Bones/soft tissue: No acute osseous findings identified. Lower thorax: Noncontributory. Report Ordering Provider: Jennifer Godfrey FINAL REPORT Dictated: 07/21/2023 7:32 pm Rj Valera MD Signed (Electronic Signature): 07/21/2023 7:32 pm Signed by: Rj Valera MD Transcribed by: JEFFERSON Technologist: RUPA Technical Comments Rectal Contrast Given? No Oral contrast amount in ml's: 0 Normal [facility] Consent for Treatmenton 06-26 Consent for Treatment [id number] Normal [facility] ED Clinical Summaryon 2022 ED Clinical Summary [address] [address] ED Clinical Summary Person Information Name: NKECHI CARR [place] Age: 43 Years : 1980 Sex: Female Language: Filipino PCP: Kaitlyn Beasley III, DO Marital Status: Single MRN: [id number] Visit Id: Visit Reason: Nausea; Flank pain; SEVERE PAIN - CAN'T BREATHE DEEP, WHOLE LEFT SIDE IS HURTING Speciality: Acuity: 3 Enc Type: Observation Med Service: Medical Arrival: 07/21/2023 16:57:47 Discharge: LOS: 000 04:50 Checkin: 07/21/2023 16:57:47 Checkout: 07/21/2023 21:47:55 Dispo Type: Admitted as IP to this [facility] EVENTS: Event Name Event Status Request Date/Time Start Date/Time Complete Date/Time Arrive Complete 07/21/2023 16:57:47 07/21/2023 16:57:47 07/21/2023 16:57:47 Document Home Meds Request 07/21/2023 16:57:47 Triage Complete 07/21/2023 16:57:47 07/21/2023 17:09:34 07/21/2023 17:09:34 Bed Assign Complete 07/21/2023 17:05:32 07/21/2023 17:05:32 07/21/2023 17:05:32 Dr Exam Complete 07/21/2023 17:05:32 07/21/2023 17:10:33 07/21/2023 17:10:33 RN Exam Complete 07/21/2023 17:05:32 07/21/2023 17:25:52 07/21/2023 17:25:52 Isolation Screening Request 07/21/2023 17:09:35 Registration Complete 07/21/2023 17:10:33 07/21/2023 17:24:46 07/21/2023 17:24:46 Reg Complete Request 07/21/2023 17:24:46 Reg Bed Request Complete 07/21/2023 17:24:46 07/21/2023 17:24:46 07/21/2023 17:24:46 Meds Admin Complete 07/21/2023 18:17:33 07/21/2023 18:53:19 Pending Labs Complete 07/21/2023 18:17:33 07/21/2023 19:09:02 Lab Complete 07/21/2023 18:17:33 07/21/2023 19:09:02 Urine Collect Complete 07/21/2023 18:17:33 07/21/2023 18:55:41 CT Complete 07/21/2023 18:17:33 07/21/2023 18:24:52 07/21/2023 19:09:17 Pending Labs Complete 07/21/2023 18:41:17 07/21/2023 18:41:17 07/21/2023 19:02:15 Lab Complete 07/21/2023 18:41:17 07/21/2023 18:41:17 07/21/2023 19:02:15 Pending Labs Inlab 07/21/2023 18:45:41 07/21/2023 18:45:41 Lab Inlab 07/21/2023 18:45:41 07/21/2023 18:45:41 Dr Exam Complete 07/21/2023 19:02:23 07/21/2023 19:02:23 07/21/2023 19:02:23 Registration Complete 07/21/2023 19:02:23 07/21/2023 20:07:57 07/21/2023 20:07:57 Pending Labs Complete 07/21/2023 19:09:02 07/21/2023 19:09:02 07/21/2023 19:09:10 Lab Complete 07/21/2023 19:09:02 07/21/2023 19:09:02 07/21/2023 19:09:10 Pending Labs Inlab 07/21/2023 19:18:26 Lab Inlab 07/21/2023 19:18:26 Meds Admin Complete 07/21/2023 19:39:22 07/21/2023 20:20:39 Meds Admin Complete 07/21/2023 19:39:35 07/21/2023 20:20:39 Consult Request 07/21/2023 19:48:30 Hospitalist Consult Request 07/21/2023 19:48:30 Bed Request Request 07/21/2023 20:01:22 Reg Bed Request Complete 07/21/2023 20:01:22 07/21/2023 20:07:57 07/21/2023 20:07:57 Admit Request 07/21/2023 20:01:22 Patient Care Request 07/21/2023 20:07:58 Patient Care Request 07/21/2023 20:07:58 Patient Care Request 07/21/2023 20:07:58 Patient Care Request 07/21/2023 20:07:58 Pending Labs Complete 07/21/2023 20:11:27 07/21/2023 20:11:27 07/21/2023 20:11:28 Patient Care Request 07/21/2023 20:41:35 NPO Request 07/21/2023 20:41:35 Meds Admin Request 07/21/2023 20:41:35 Consult Request 07/21/2023 20:41:35 Pending Labs Request 07/21/2023 20:42:14 Lab Request 07/21/2023 20:42:14 Meds Admin Request 07/21/2023 21:46:37 AD[address]: [id number] [facility] [id number] [facility] DOC NOTES: MEDICAL INFORMATION: Prescriptions Given: Medications to Continue with No Changes Other Medications cephalexin (Keflex 500 mg Cap) 1 Capsules By Mouth every 12 hours. take 1 capsule the day prior to procedure, take 2nd capsule the day of procedure. Refills: 0. PATIENT EDUCATION INFORMATION: Instructions: Follow up: DIAGNOSIS: 1:Obstruction of left ureteropelvic junction (UPJ) due to stone; 2:Acute pyelonephritis; 3:Fibromyalgia syndrome; 4:Anxiety Normal [facility] ED Note-Physicianon 07-21-20 ED Note-Physician Patient is a 43-year-old female presented to the outgoing physician for left flank pain. She does have a history of kidney stones at this time blood work urinalysis and CT of the abdomen pelvis are pending. Blood work is concerning for a acute leukocytosis. This in addition to her heart rate meet SIRS criteria so we will add blood cultures and lactic acid level. Urine does show signs concerning for acute UTI. CT of the abdomen pelvis reveals a 1.3 cm partially obstructing stone at the left UPJ. There is also some stranding around the left kidney concerning for infection in this context. Patient was given an additional liter of fluids as well as a dose of IV Rocephin. I called and spoke to Dr. Romero who is on-call for urology. At this time he is in agreement with the plan of admission to the hospitalist service with him on consult and asked the patient be placed n.p.o. at this time. Case then discussed with hospitalist on-call who agreed with patient further medical management. Additional ED diagnoses: Obstruction of left ureteropelvic junction due to stone; acute pyelonephritis; sepsis Normal [facility] Comment on above: Result Comment: Elec tronically Signed By: Heriberto Ordaz DO\.francisco\Date and Time Signed: 07/21/23 19:50 EST ED Note-Physician Basic Information Time Seen: Bekah Thomas Jennifer Woods 07/21/2023 17:10 Chief Complaint Pt presents to ED with complaints of left flank pain onset yesterday with nausea. hx of stones. History of Present Illness The patient is a 43-year-old female past medical history of kidney stones who presented to the emergency room with left flank pain. The patient stated the pain has been present since yesterday. The patient describes the pain as sharp burning. The pain radiates down to the groin. She rates the pain between 8 and a 10 out of 10. The patient reports nausea but no vomiting. She denies any blood in urine. She reports pressure with urination. The patient denies any fever. She reports some chills. The patient states she has history of kidney stones and this feels like a kidney stone. The patient denies any other associated symptoms. Review of Systems Additional ROS info: Except as noted in the above Review of Systems and in the History of Present Illness all other systems have been reviewed and are negative or noncontributory. Physical Exam Vitals & Measurements T: 37.0 ?C(Oral) HR: 104(Monitored) RR: 20 BP: 96/50 SpO2: 100% HT: 152 cm WT: 52.52 kg BMI: 22.73 General: alert, mild distress Skin: warm, dry Head: no trauma, normocephalic Neck: Trachea midline Eye: normal conjunctiva, sclera clear Cardiovascular: regular rate and rhythm Respiratory: Lungs CTA, respirations non labored, breath sounds equal Gastrointestinal: soft, non distended, mild to moderate generalized tenderness, no guarding Extremities: no deformity, no trauma Neurological: Alert and oriented, speech normal, no focal neuro deficits, Psychiatric: cooperative, affect appropriate for age, Medical Decision Making MEDICAL DECISION MAKING Number and Complexity of Problems Differential Diagnosis: [] [facility] Data External documents reviewed: [] My EKG interpretation: [] My CT interpretation: [] My X-ray interpretation: [] My Ultrasound interpretation: [] Decision rules/scores evaluated: [] Discussed with: [] Treatment and Disposition ED Course: The patient presented with left flank pain. She has history of kidney stones. The patient was given IV fluids Toradol and Zofran. Blood work was ordered. CT of the abdomen and pelvis was ordered. The care of the patient was transitioned to Dr. Ordaz upon shift change to follow-up with blood work imaging and final disposition. Shared decision making: [] Code status: [] Assessment/Plan 1. Flank pain (R10.9: Unspecified abdominal pain) Orders: ketorolac, 30 mg = 1 mL, Injection, IV Push, Once, Stop date 07/21/23 18:17:00 EST, STAT, Start date 07/21/23 18:17:00 EST, 07/21/23 18:17:00 EST ondansetron, 4 mg = 2 mL, Injection, IV Push, Once, Stop date 07/21/23 18:17:00 EST, STAT, Start date 07/21/23 18:17:00 EST, 07/21/23 18:17:00 EST Sodium Chloride 0.9% intravenous solution, 1,000 mL, Soln-IV, IV, Once, Stop date 07/21/23 18:17:00 EST, STAT, Start date 07/21/23 18:17:00 EST, Infuse over 61, minute(s) Automated Diff Basic Metabolic Panel CBC w/ Auto Diff CT Abdomen/Pelvis w/o Contrast eGFR Hepatic Function Panel Lipase Level PT & PTT UA With Cult Reflex Urine Culture Medications Administered Given ketorolac 30 mg/mL Inj 1 mL, 30 mg, IV Push NS 1000 ml Bolus, 1000 mL, IV ondansetron 4 mg/2 mL Inj, 4 mg, IV Push Disposition Plan Discharge Prescription List Prescriptions No active prescription medications Follow-up No qualifying data available Problem List/Past Medical History Ongoing Anxiety Asymptomatic microscopic hematuria BMI 29.0-29.9,adult Cannabis dependence, continuous use Cervical radiculopathy Chronic GERD DDD (degenerative disc disease) Fibromyalgia syndrome Flank pain Headache Hydronephrosis of right kidney Hydroureter on right IBS (irritable bowel syndrome) Kidney stone Renal calculus, right Smoker Ureteral stent retained Ureteral stone Urinary tract infection Historical Bipolar I disorder, mixed, moderate with anxiety distress Irritable bowel syndrome Uterine polyp Procedure/Surgical History Cystoscopic removal of ureteric stent (07/22/2022), Cystoscopy (05/03/2022), Cystoscopy (04/04/2021), ESWL - Extracorporeal shockwave lithotripsy for renal calculus (03/15/2021), Cystoscopy (02/14/2021), Cystoscopy (05/26/2019), ESWL - Extracorporeal shockwave lithotripsy for renal calculus (10/25/2016), Left extracorporeal shockwave lithotripsy x7 (03/01/2016), Caesarean section, Cerclage, Cystoscopy, D&C - Dilatation and curettage, Diagnostic laparoscopy, History of tonsillectomy, Hysterectomy. Medications Inpatient No active inpatient medications Home Keflex 500 mg Cap, 500 mg= 1 cap(s), Oral, q12hr, Not taking Allergies HYDROcodone (itch) Vicodin (itching) morphine (itching) Social History Alcohol - Denies Alcohol Use, 06/28/2012 Current, Beer, 01/04/2021 C (more content not included)... Normal [facility] Comment on above: Result Comment: Elec tronically Signed By: Jennifer Godfrey M.D.\.br\Date and Time Signed: 07/21/23 19:11 EST ED Patient Education Noteon 07-21-2023 ED Patient Education Note Normal [facility] ED Patient Summaryon 023 ED Patient Summary [place] [address] Patient Discharge Instructions Person Information Name: NKECHI CARR Age: 43 Years Arrival Date: 07/21/2023 16:57:47 Discharge Diagnosis: 1:Obstruction of left ureteropelvic junction (UPJ) due to stone; 2:Acute pyelonephritis; 3:Fibromyalgia syndrome; 4:Anxiety Primary Care Physician: Kaitlyn Beasley III, DO Provider Information Primary Provider: Bekah Thomas, Jennifer Woods Advanced Head Of Operation And Logistics:None The exam and treatment you received in the Emergency Department were for an urgent problem and are not intended as complete care. It is important that you follow up with a doctor, nurse practitioner, or physician?s clinical nursing assistant for ongoing care. If your symptoms become worse or you do not improve as expected and you are unable to reach your usual health care provider, you should return to the Emergency Department. We are available 24 hours a day. NKECHI CARR has been given the following list of patient education materials, prescriptions and follow-up instructions: Follow-up Instructions: In the event that this physician does not participate in your insurance network, please consult with your insurance company to find a nearby participating provider. Patient Education Materials: A MESSAGE TO ALL PATIENTS REGARDING OPIOIDS PRESCRIPTION OPIOIDS: WHAT YOU NEED TO KNOW Prescription opioids can be used to help relieve vuquxxez-kq-ekkypt pain and are often prescribed following a surgery or injury, or for certain health conditions. These medications can be an important part of the treatment but also come with serious risks. It is important to work with your healthcare provider to make sure you are getting the safest, most effective care. WHAT ARE THE RISKS AND SIDE EFFECTS OF OPIOID USE? Prescription opioids carry serious risks of addiction and overdose, especially with prolonged use. An opioid overdose, often marked by slowed breathing, can cause sudden . The use of prescription opioids can have a number of side effects as well, even when taken as directed: ? Tolerance?meaning you might need to take more of the medication for the same pain relief ? Physical dependence?meaning you have symptoms of withdrawal when a medication is stopped ? Increased sensitivity to pain ? Constipation ? Nausea, vomiting, and dry mouth ? Sleepiness and dizziness ? Confusion ? Depression ? Low levels of testosterone that can result in lower sex drive, energy, and strength ? Itching and sweating RISKS ARE GREATER WITH: ? History of drug misuse, substance use disorder, or overdose ? Mental health conditions (such as depression or anxiety) ? Sleep apnea ? Older age (65 years and older) ? Avoid alcohol while taking prescription opioids. Also, unless specifically advised by your health care provider, medications to avoid include: ? Benzodiazepines (such as Xanax or Valium) ? Muscle relaxants (such as Soma or Flexeril) ? Hypnotics (such as Ambien or Lunesta) ? Other prescription opioids KNOW YOUR OPTIONS Talk to your health care provider about ways to manage your pain that don?t involve prescription opioids. Some of these options may actually work better and have fewer risks and side effects. Options may include: ? Pain relievers such as acetaminophen, ibuprofen, and naproxen ? Some medication that are also used for depression or seizures ? Physical therapy and exercise ? Cognitive behavioral therapy, a psychological, goal-directed approach, in which patients learn how to modify physical, behavioral, and emotional triggers of pain and stress. IF YOU ARE PRESCRIBED OPIOIDS FOR PAIN: ? Never take opioids in greater amounts or more often than prescribed. ? Follow up with your primary health care provider. o Work together to create a plan on how to manage your pain. o Talk about ways to help manage your pain that don?t involve prescription opioids. o Talk about any and all concerns and side effects. ? Help prevent misuse and abuse o Never sell or share prescription opioids. o Never use another person?s prescription opioids. ? Store prescription opioids in a secure place and out of reach of others (this may include visitors, children, friends, and family). ? Safely dispose of unused prescription opioids: Find your community drug take-back program or your pharmacy mail-back program, or flush them down the toilet, following guidance from the Food and Drug Administration (www.fda.gov/Drugs/ ResourcesForYou). ? Visit www.cdc.gov/drugove rdose to learn about the risks of opioids abuse and overdose. ? If you believe you may be struggling with addiction, tell your health child adolescent care and ask for guidance or call [facility]?S National Helpline at 4-774-684-WTFU. x Source: [place] Department of Health and Human Services/[place] for (more content not included)... Normal [facility] HEMATOLOGYOrdered By: SYSTEM SYSTEM on 07-21-2023 Basophils/100 WBC (Bld) 0.5 % Normal 0.0 - 2.0 % [facility] HemeAutoSS Basophils/Leukocytes Auto (Bld) [Pure # fraction] 0.1 E9/L Normal 0.0 - 0.2 E9/L [facility] HemeAutoSS Eosinophils/100 WBC (Bld) 0.0 % Normal 0.0 - 8.0 % [facility] HemeAutoSS Eosinophils/Leukocytes Auto (Bld) [Pure # fraction] 0.0 E9/L Normal 0.0 - 0.5 E9/L [facility]eAuto[facility] Lymphocytes/100 WBC (Bld) 2.0 % Low 14.0 - 50.0 % [facility] HemeAutoSS Lymphocytes/Leukocytes Auto (Bld) [Pure # fraction] 0.5 E9/L Low 1.0 - 4.0 E9/L [facility]eAutoSS Monocytes/100 WBC (Bld) 7.3 % Normal 4.0 - 14.0 % [facility] HemeAutoSS Monocytes/Leukocytes Auto (Bld) [Pure # fraction] 1.9 E9/L High 0.2 - 1.0 E9/L [facility]eAutoSS Neutrophils/100 WBC (Bld) 90.2 % High 36.0 - 75.0 % [facility] HemeAutoSS Neutrophils/Leukocytes Auto (Bld) [Pure # fraction] 23.0 E9/L High 2.0 - 7.5 E9/L [facility] HemeAutoSS HEMATOLOGYOrdered By: Dalia Soliz on 07-21-2023 Erythrocyte distribution width (RBC) [Ratio] 12.6 % Normal 10.9 - 14.2 % [facility] HemeAuto[facility] Hematocrit (Bld) [Volume fraction] 38.9 % Normal 34.0 - 46.0 % [facility]eAutoSS Hemoglobin (Bld) [Mass/Vol] 13.1 g/dL Normal 12.0 - 16.0 gm/dL [facility]eAuto[facility] MCH (RBC) [Entitic mass] 29.5 pg Normal 27. 0 - 34.0 pg [facility] MCHC (RBC) [Mass/Vol] 33.7 g/dL Normal 31.4 - 36.0 gm/dL [facility] HemeAutoSS MCV (RBC) [Entitic vol] 87.5 fL Normal 80.0 - 100.0 fL [facility] Platelet mean volume (Bld) [Entitic vol] 7.6 fL Normal 6.4 - 10.8 fL [facility]eAutoSS Platelets (Bld) [#/Vol] 300.0 E9/L Normal 150. 0 - 500.0 E9/L [facility]Auto[facility] RBC (Bld) [#/Vol] 4.4 E12/L Normal 4.3 - 5.9 E12/L [facility]eAuto[facility] WBC corrected for nucl RBC Auto (Bld) [#/Vol] 25.5 E9/L High 4.0 - 11.0 E9/L [facility]eAuto[facility] Comment on above: Result Comment: Slid e reviewed by Hep Func Panelon 07-21-2023 Albumin [Mass/Vol] 3.5 g/dL Normal 3.3-5.0 [facility] Comment on above: Performed By: #### 2 301052, 0029265, 3602630, 0739857, 0182620, 17502550, [id number] ####[facility] [address] [place] [address] Albumin/Globulin (S) [Mass conc ratio] 1.2 Normal 1.1-2.2 [facility] Comment on above: Performed By: #### 2 154824, 4686458, 0349007, 8659417, 6888108, 33873317, 58863937 ####[facility] [address] [place] [address] ALP [Catalytic activity/Vol] 54 Int._Unit/L Normal 21-98 [facility] Comment on above: Performed By: #### 2 952021, 0085970, 2145526, 3184277, 0204384, 74424893, [id number] ####[facility] [address] [place] [address] ALT No additional P-5'-P [Catalytic activity/Vol] 12 Int._Unit/L Normal 6-46 [facility] Comment on above: Performed By: #### 2 383704, 5664276, 3185563, 2138076, 8952620, 24449387, 84481814 ####[facility] [address] [place] [address] AST [Catalytic activity/Vol] 18 Int._Unit/L Normal 5-43 [facility] Comment on above: Performed By: #### 2 187138, 6241337, 6022543, 7687228, 0848194, 60680686, 78776430 ####[facility] [address] [place] [address] Bilirubin [Mass/Vol] 0.7 mg/dL Normal 0.0-1.1 [facility] Comment on above: Performed By: #### 2 076885, 1033989, 3014629, 2242158, 3304977, 42252862, 55162107 ####[facility] [address] [place] [address] Bilirubin.direct [Mass/Vol] 0.2 mg/dL Normal 0.1-0.4 [facility] Comment on above: Performed By: #### 2 097862, 6514716, 4496197, 7577151, 0791799, 30400966, 79825270 ####[facility] [address] [place] [address] Bilirubin.indirect [Mass or moles/Vol] 0.5 mg/dL Normal 0.1-0.9 [facility] Comment on above: Performed By: #### 2 746545, 2801668, 2116455, 9336635, 7633645, 51979153, 48201616 ####[facility] [address] [place] [address] Globulin (S) [Mass/Vol] 3.0 g/dL Normal 1.4-4.0 [facility] Comment on above: Performed By: #### 2 559857, 3140829, 1996474, 6696353, 4289209, 67179582, 70739288 ####[facility] [address] [place] [address] Protein [Mass/Vol] 6.5 g/dL Normal 6.0-7.8 [facility] Comment on above: Performed By: #### 2 985556, 0278369, 6030816, 0975347, 9019897, 96851389, 24245928 ####[address] [place] [address] LEVOFLOXACIN:SUSC:PT:ISOLATE :ORDQN:MICOrdered By: Arline Avery on 07-21-2023 levoFLOXacin KALYAN [Susc] 70,000 cfu/ml Escherichia coli [facility] Lactic Acidon 07-21-2023 Lactate [Mass/Vol] 1.0 mmol/L Normal 0.5-2.2 [facility] Comment on above: Performed By: #### 2 779766 ####[facility] [address] [place] [address] Lipase Levelon 07-21-2023 Lipase [Catalytic activity/Vol] 31 U/L Normal 13-58 [facility] Comment on above: Performed By: #### 2 182125, 1727739, 2656298, 1488164, 5704188, 71696190, 01372616 ####[facility] [address] [place] [address] No Panel InformationOrdered By: [facility] on 07-21-2023 Blood Culture Charcoal No growth at 1 da y. Final to follow at 7 days. 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 Isolated from aerobic and anaerobic bottles Preliminary gram stain result of gram negative rods Result called to Faby Felix CNP by [facility] and results read back for confirmation on 07/23/2023 12:30:34 [facility] PT & PTTon 07-21-2023 aPTT Coag (PPP) [Time] 30.8 second(s) Normal 25.1-36.5 [facility] Comment on above: Result Comment: Para meter 15 days - 4 weeks 1 - 5 months 6 - 11 months 1 - 5 years 6 - 10 years 11 - 17 years PTT Mean: 35.4 (27.6-45.6) Mean: 33.5 (24.8-40.7) Mean: 32.4 (25.1-40.7) Mean: 31.6 (24.0-39.2) Mean: 31.6 (26.9-38.7) Mean: 31.0 (24.6-38.4) Pediatric Reference ranges were obtained from a study by yaima Gonzales al. prepared from 1437 samples obtained at 7 different centers using the same coagulation reagent and instrumentation as [facility]. Currently there are no coagulation studies available worldwide for children to 14 days, and no normal ranges. Heparin therapeutic range (represented by Anti-Factor Xa activity of 0.2 - 0.4 U/mL) corresponds to PTT of 56.6 - 109.0 sec. Performed By: #### 2 911216, 4731347, 9000864, 8504785, 4223885, 25599819, 28212848 ####[facility] [address] [place] [address] INR Coag (PPP) [Relative time] 1.2 {INR} Invalid Interpretation Code [facility] Comment on above: Result Comment: INR results are specifically intended to assess patients stabilized on long-term Anticoagulation therapy suggested INR?s ?Less Intensive Anticoagulation? 2.0 ? 3.0 Conventional Range 3.0 ? 4.5 Performed By: #### 2 380247, 3654317, 6699324, 1132270, 4305936, 62203117, 08574878 ####[facility] [address] [place] [address] PT Coag (PPP) [Time] 13.5 second(s) High 9.4-12.5 [facility] Comment on above: Result Comment: 15 d ays - 4 weeks 1 - 5 months 6 -11 months 1-5 years 6-10 years 11 -17 years Mean: 11.2 (9.5-12.6) Mean: 11.0 (9.7-12.8) Mean: 11.0 (9.8-13.0) Mean: 11.3 (9.9-13.4) Mean: 11.7 (10.0-14.6) Mean: 11.8 (10.0 - 14.1) Pediatric Reference ranges were obtained from a study by Blake Cohen et al. prepared from 1437 samples obtained at 7 different centers using the same coagulation reagent and instrumentation as [facility]. Currently there are no coagulation studies available worldwide for children to 14 days, and no normal ranges. Performed By: #### 2 661806, 7131622, 0545907, 3688314, 6475838, 36719263, 30890096 ####[facility] [address] [place] [address] UA With Cult Reflexon 2022 Bacteria LM Ql (Urine sed) 1+ /HPF Abnormal Trace [facility] Comment on above: Performed By: #### 1 6490288, 6209052 ####[facility] [address] [place] [address] Bilirubin Ql (U) Negative Normal Negative [facility] Comment on above: Performed By: #### 1 3585561, 4927340 ####[facility] [address] [place] [address] Clarity (U) CLOUDY Abnormal Clear [facility] Comment on above: Performed By: #### 1 5145849, 5456459 ####[facility] [address] [place] [address] Color (U) YELLOW Normal Yellow [facility] Comment on above: Performed By: #### 1 6451669, 3975604 ####[address] [address] Epithelial cells.squamous LM.HPF (Urine sed) [#/Area] 3-4 Normal 0-2 [facility] Comment on above: Performed By: #### 1 7316169, 9290357 ####[facility] [address] [place] [address] Glucose Test strip (U) [Mass/Vol] Negative Normal Negative [facility] Comment on above: Performed By: #### 1 8184339, 8634646 ####[facility] [address] [place] [address] Hemoglobin Ql (U) 2+ Abnormal Negative [facility] Comment on above: Performed By: #### 1 3225604, 7487897 ####[facility] [address] [place] [address] Ketones (U) [Mass/Vol] Negative Normal Negative [facility] Comment on above: Performed By: #### 1 8222759, 9873500 ####[facility] [address] [place] [address] [place].plasma/[place].R BC (Bld) [Mass ratio] 4-20 Normal 0-3 [facility] Comment on above: Performed By: #### 1 0688179, 5580623 ####[facility] [address] [place] [address] Nitrite Ql (U) Negative Normal Negative [facility] Comment on above: Performed By: #### 1 5670696, 1985995 ####[address] [address] pH (U) 6.0 [pH] Invalid Interpretation Code 5.0-9.0 [facility] Comment on above: Performed By: #### 1 8638312, 3707254 ####[address] [address] Protein (U) [Mass/Vol] 1+ Abnormal Negative [facility] Comment on above: Performed By: #### 1 6768636, 9791223 ####[address] [address] Specific gravity (U) [Rel density] 1.025 Invalid Interpretation Code 1.005-1.030 [facility] Comment on above: Performed By: #### 1 2416987, 0843765 ####[address] [address] Type of Urine collection method Clean Catch Normal [facility] Comment on above: Performed By: #### 1 6260350, 2584431 ####[address] [address] Urobilinogen Qn (U) 0.2 {Jane'U}/dL Normal 0.0-1.0 [facility] Comment on above: Performed By: #### 1 4563076, 3419878 ####[address] [address] WBC Auto Ql (U) 3+ Abnormal Negative [facility] Comment on above: Performed By: #### 1 6300685, 0659842 ####[address] [address] WBC LM.HPF (Urine sed) [#/Area] /[HPF] Abnormal 0-5 [facility] Comment on above: Performed By: #### 1 9990912, 1611030 ####[facility] [address] [place] [address] URINALYSISOrdered By: Sha Gomez on 07-21-2023 Bacteria LM Ql (Urine sed) 1+ /HPF Invalid Interpretation Code Trace/HPF [facility] UA Auto SS Bilirubin Ql (U) Negative (07/21/23 6:02 PM) Normal Negative [facility] UA Auto SS Clarity (U) Cloudy *ABN* (07/21/23 6:02 PM) Invalid Interpretation Code Clear [facility] UA Auto SS Color (U) Yellow (07/21/23 6:02 PM) Normal Yellow [facility] UA Auto SS Epithelial cells.squamous LM.HPF (Urine sed) [#/Area] 3-4 /HPF Normal 0-2/HPF [facility] UA Aut o SS Glucose Test strip (U) [Mass/Vol] Negative (07/21/23 6:02 PM) Normal Negative [facility] UA Auto SS Hemoglobin Ql (U) 2+ *ABN* (07/21/23 6:02 PM) Invalid Interpretation Code Negative [facility] UA Auto SS Ketones (U) [Mass/Vol] Negative (07/21/23 6:02 PM) Normal Negative [facility] UA Auto SS [place].plasma/[place].R BC (Bld) [Mass ratio] 4-20 /HPF Normal 0-3/HPF [facility] UA Au to SS Nitrite Ql (U) Negative (07/21/23 6:02 PM) Normal Negative [facility] UA Auto SS pH (U) 6.0 *NA* (07/21/23 6:02 PM) Invalid Interpretation Code 5.0 - 9.0 [facility] UA Auto SS Protein (U) [Mass/Vol] 1+ *ABN* (07/21/23 6:02 PM) Invalid Interpretation Code Negative [facility] UA Auto SS Specific gravity (U) [Rel density] 1.025 *NA* (07/21/23 6:02 PM) Invalid Interpretation Code 1.005 - 1.030 [facility] UA Auto SS UA Spec Desc Clean Catch (07/21/23 6:02 PM) Normal [facility] UA Auto SS Urobilinogen Qn (U) 0.5088528 {Jane'U}/dL Normal 0.0 - 1.0 EU/dL [facility] UA Auto SS WBC Auto Ql (U) 3+ *ABN* (07/21/23 6:02 PM) Invalid Interpretation Code Negative [facility] UA Auto SS WBC LM.HPF (Urine sed) [#/Area] /[HPF] Invalid Interpretation Code 0-5/HPF [facility] UA Auto SS eGFRon 07-21-2023 GFR/1.73 sq M.predicted among non-blacks MDRD (S/P/Bld) [Vol rate/Area] 64 mL/min/1.73 m2 Normal >=59 [facility] Comment on above: Order Comment: Order added by Discern Expert. Result Comment: Net Developer With Wcf trena kidney disease could be indicated at eGFR's of less than 60 mL/min/1.73m2. Kidney failure is indicated at less than 15 mL/min/1.73m2. Performed By: #### 2 889892, 6934231, 9405482, 4535714, 7478040, 59607649, 99562154 ####[facility] [address] [place] [address] levoFLOXacin KALYAN [[facility]]Order ed By: Arline Avery on 07-21-2023 Escherichia coli Escherichia coli [facility] CNOVon 05-12-2023 CNOV Office Visit ([facility]) ---- NKECHI CARR ([id number]) 1980 F Date Time Provider Department 05/12/23 9:35 AM CLIFFORD PEDROZA During your visit today, we recorded the following information about you: Pulse Respiration Blood pressure Weight 88/minute 16/minute 102/62 52.6 kg Clifford Pedroza MD 05/13/2023 11:03 AM Signed . [facility] SERVICE DATE: 05/12/2023 SERVICE TIME: 9:47 AM New patient CHIEF COMPLAINT: Kidney stones HPI: Ms. Lilly is a 42 year old female who presents with kidney stones Duration (when): for the past many years Location (where): Both sides. Most recently on the left Severity (ex: creat 4.5, BP 200/100): Moderate Quality (ex: sharp, dull): Dull achy pain Context (ex: activity at onset or related to condition): History of intermittent hematuria Timing (ex: continuous, intermittent): Intermittent Modifying factors (ex: medications, interventions): Consider this as a possible water drinker Associated signs AND symptoms (ex: edema, SOB): No shortness of breath or chest pain. Very pleasant 40-year-old lady is in the office with her boyfriend. She is in the office to discuss more about her kidney stones. Apparently has been having kidney stone issues for the past many years. Never passed any stones. She tells me that she is underwent at least 30 procedures in the past. Most recent procedure was done in June 2022 when she had a left ureteric stent which was removed later. She tells me that her stones are predominantly calcium oxalate stones. Reports her periods were adopted and hence limitations in the family history. She follows with Dr Beasley in [place](Urology). I was able to see some records/ She currently does not take any prescription medication. She currently is not exposed to lead but has lived in houses with lead paint. Occasionally has twitching in the left flank and thinks it might be the stone. She also reports intermittent hematuria during these episodes. She likes green tea and iced tea. She identifies herself is a poor water drinker. Also has been drinking clear sodas. Both her parents were adopted. No kidney stone history in her parents. PAST MEDICAL HISTORY: PAST MEDICAL HISTORY Diagnosis Date Endometriosis Fibromyalgia IBS (irritable bowel syndrome) Migraine PAST SURGICAL HISTORY: PAST SURGICAL HISTORY Procedure Laterality Date DELIVERY ONLY 2001 , low cervical COLPOSCOPY CERVIX UPPER/ADJACENT VAGINA 10 years ago Colposcopy PAST SURGICAL HISTORY OF cryo 10 years ago PAST SURGICAL HISTORY OF 2009 laparoscopy PAST SURGICAL HISTORY OF 2009 [facility] FAMILY HISTORY: No family history on file. SOCIAL HISTORY: Social History Tobacco Use Smoking status: Every Day Packs/day: 0.50 Years: 25.00 Additional pack years: 0.00 Total pack years: 12.50 Types: Cigarettes Substance Use Topics Alcohol use: Yes Comment: SOCIAL Drug use: Yes Comment: mj--LAST TIME 06/01/13 MEDICATIONS: ibuprofen 800 mg tablet Take 800 mg by mouth every 6 hours as needed. tiZANidine (ZANAFLEX) 4 mg tablet Take 4 mg by mouth daily at bedtime. gabapentin (NEURONTIN) 300 mg capsule Take 300 mg by mouth twice daily. MEDICATION, NON-DATABASE chlordiazepoxide-cl idinium (LIBRAX, WITH CLINIDIUM,) 5-2.5 mg ORAL per capsule Take 1 capsule by mouth before meals and at bedtime. ALLERGIES: ALLERGIES Allergen Reactions Morphine Itching Vicodin [Hydrocodon* Itching REVIEW OF SYSTEMS: CONSTITUTIONAL: No fevers, chills, nightsweats, reports weight loss in the past several months HEENT: Denies frequent or severe heaches, recurrent sinus/nasal congestion symptoms. No hearing loss EYES: No diplopia or blurry vision. No redness in eye CARDIOVASCULAR: No chest pain, dyspnea, palpitations, orthopnea, PND, ankle edema. PULM: No dyspnea, unexplained cough. GI: No dysphagia/odynophag ia, reflux symptoms, abdominal pain, constipation, diarrhea, hematochezia, melena. Left flank pain intermittently. : She can smell the blood in the urine as told to me. Occasional hematuria. Never passed any stones NEURO: No new balance problems, peripheral weakness/paresthesi as or numbness MUSC-SKEL: No new joint pain, swelling, or erythema. PSY: No concerns regarding depression, anxiety or panic. INTEGUMENTARY: No new skin changes/ rashes No recent NSAID intake PHYSICAL EXAM: BP 102/62 Pulse 88 Resp 16 Wt 52.6 kg (116 lb) LMP 12/18/2008 BMI 22.65 kg/m? Constitutional: No acute distress, Responsive, Normal habitus, and Well-nourished Eyes: Conjunctiva clear Ear, Nose, and Throat: Hearing normal and Lips normal Neck:No jugular venous distension Cardiovascular:No peripheral edema Regular rate and ryhthm, normal S1 and S2, no murmurs, rubs, or gallops (more content not included)... Normal [facility] Urinalysis complete panel (U )on 05-12-2023 Bilirubin Ql (U) Negative Negative [facility] Clarity (Unsp spec) Cloudy Abnormal Clear [facility] Color (U) Light Yellow Yellow [facility] Epithelial cells LM.HPF (Urine sed) [#/Area] Few [facility] Glucose Test strip (U) [Mass/Vol] Negative Trace, Negative [facility] Hemoglobin Ql (U) 2+ Abnormal Negative, Trace [facility] Ketones Ql (U) Negative Trace, Negative [facility] Leukocyte esterase Test strip Ql (U) 250 Danitza/uL Abnormal Negative, 25 Danitza/uL [facility] Nitrite Ql (U) Negative Negative [facility] pH (U) 6.0 [pH] 5.0 - 8.0 [facility] Protein (U) [Mass/Vol] 1+ Abnormal Trace , Negative [facility] RBC LM.HPF (Urine sed) [#/Area] 11-25 /HPF Abnormal 0-3 /HPF [facility] Specific gravity (U) [Rel density] 1.021 1.005 - 1.030 [facility] Urobilinogen Ql (U) Negative Negative [facility] WBC LM.HPF (Urine sed) [#/Area] /[HPF] Abnormal 0-5 /HPF [facility] Bilirubin Ql (U) Negative Normal Negative [facility] Comment on above: Order Comment: Speci men Type: URINE SPECIMEN Ordering Facility: [facility] Address: [address] [place] [address] Performed By: #### 2 4356-8 #### [facility] CLIA [id number] [address] [place] [address] [place] Clarity (Unsp spec) Cloudy Abnormal Clear [facility] Comment on above: Order Comment: Speci men Type: URINE SPECIMEN Ordering Facility: [facility] Address: [address] [place] [address] Performed By: #### 2 4356-8 #### [facility] CLIA [id number] [address] [place] [address] [place] Color (U) Light Yellow Normal Yellow [facility] Comment on above: Order Comment: Speci men Type: URINE SPECIMEN [facility] [facility] Address: [address] [place] [address] Performed By: #### 2 4356-8 #### [facility] CLIA [id number] [address] [place] [address] [place] Epithelial cells LM.HPF (Urine sed) [#/Area] Few Normal [facility] Comment on above: Order Comment: Speci men Type: URINE SPECIMEN Ordering Facility: [facility] Address: [address] [place], [place] [address] Performed By: #### 2 4356-8 #### [facility] CLIA [id number] [address] [place] [address] [place] Glucose Test strip (U) [Mass/Vol] Negative Normal Trace, Negative [facility] Comment on above: Order Comment: Speci men Type: URINE SPECIMEN Ordering Facility: [facility] Address: [address] [place], [place] [address] Performed By: #### 2 4356-8 #### [facility] CLIA [id number] [address] [place] [address] [place] Hemoglobin Ql (U) 2+ Abnormal Negative, Trace [facility] Comment on above: Order Comment: Speci men Type: URINE SPECIMEN Ordering Facility: [facility] Address: [address] [place], [place] [address] Performed By: #### 2 4356-8 #### [facility] CLIA [id number] [address] [place] [address] [place] Ketones Ql (U) Negative Normal Trace, Negative [facility] Comment on above: Order Comment: Speci men Type: URINE SPECIMEN Ordering Facility: [facility] Address: [address] [place], [place] [address] Performed By: #### 2 4356-8 #### [facility] CLIA [id number] [address] [place] [address] [place] Leukocyte esterase Test strip Ql (U) 250 Danitza/uL Abnormal Negative, 25 Danitza/uL [facility] Comment on above: Order Comment: Speci men Type: URINE SPECIMEN Ordering Facility: [facility] Address: [address] [place] [address] Performed By: #### 2 4356-8 #### [facility] CLIA [id number] [address] [place] [address] [place] Nitrite Ql (U) Negative Normal Negative [facility] Comment on above: Order Comment: Speci men Type: URINE SPECIMEN Ordering Facility: [facility] Address: [address] [place] [address] Performed By: #### 2 4356-8 #### [facility] CLIA [id number] [address] [place] [address] [place] pH (U) 6.0 [pH] Normal 5.0-8.0 [facility] Comment on above: Order Comment: Speci men Type: URINE SPECIMEN Ordering Facility: [facility] Address: [address] [place] [address] Performed By: #### 2 4356-8 #### [facility] CLIA [id number] [address] [place] [address] [place] Protein (U) [Mass/Vol] 1+ Abnormal Trace , Negative [facility] Comment on above: Order Comment: Speci men Type: URINE SPECIMEN Ordering Facility: [facility] Address: [address] [place], [place] [address] Performed By: #### 2 4356-8 #### [facility] CLIA [id number] [address] [place] [address] [place] RBC LM.HPF (Urine sed) [#/Area] 11-25 /HPF Abnormal 0-3 /HPF [facility] Comment on above: Order Comment: Speci men Type: URINE SPECIMEN Ordering Facility: [facility] Address: [address] [place] [address] Performed By: #### 2 4356-8 #### [facility] CLIA [id number] [address] [place] [address] [place] Specific gravity (U) [Rel density] 1.021 Normal 1.005-1.030 [facility] Comment on above: Order Comment: Speci men Type: URINE SPECIMEN Ordering Facility: [facility] Address: [address] [place] [address] Performed By: #### 2 4356-8 #### [facility] CLIA [id number] [address] [place] [address] [place] Urobilinogen Ql (U) Negative Normal Negative [facility] Comment on above: Order Comment: Speci men Type: URINE SPECIMEN Ordering Facility: [facility] Address: [address] [place] [address] Performed By: #### 2 4356-8 #### [facility] CLIA [id number] [address] [place] [address] [place] WBC LM.HPF (Urine sed) [#/Area] /[HPF] Abnormal 0-5 /HPF [facility] Comment on above: Order Comment: Speci men Type: URINE SPECIMEN Ordering Facility: [facility] Address: [address] [place] [address] Performed By: #### 2 4356-8 #### [facility] CLIA [id number] [address] [place] [address] [place] CT Abdomen/Pelvis w/o Contra ston 05-07-2023 CT Abdomen/Pelvis w/o Contrast Exam Date/Time: 05/06/2023 17:05 EDT Reason for Exam: N20.9 Urinary calculus, unspecified Report IMPRESSION: There are 2, heavily calcified, redundant stones in the left kidney. The largest measures 1.5 x 0.7 cm there is no hydronephrosis on either side. The right kidney is within normal limits. There are no radiopaque renal stones on the right. EXAMINATION: CT Abdomen/Pelvis w/o Contrast HISTORY: N20.9 Urinary calculus, unspecified COMPARISON: CT abdomen pelvis from 07/16/2022 TECHNIQUE: Contiguous axial CT sections of the abdomen and pelvis. No IV contrast administered. Unenhanced imaging is limited for the evaluation of some intra-abdominal and pelvic pathologies. Sagittal and coronal reformats have been obtained. All CT scans at this facility use dose modulation, iterative reconstruction, and/or weight based dosing when appropriate to reduce radiation dose to as low as reasonably achievable. FINDINGS Lung bases:Visualized lung bases show no significant pathology Liver: The visualized portions of the liver are normal in size and attenuation. There are no focal solid or cystic lesions. There is no intra or extrahepatic bile duct dilatation. Gallbladder: No calcified gallstones. Normal gallbladder wall. No pericholecystic fluid. Spleen: There are no focal lesions or calcifications in the visualized portions of the spleen. There is no splenomegaly Pancreas: The pancreas is normal in size and attenuation without focal lesions or dilatation of the pancreatic duct. Adrenal glands are negative. Kidneys: The right kidney is normal in size and position without hydronephrosis or renal stones. The left kidney is normal in size and position without hydronephrosis. There are 2 heavily calcified stones in the right kidney. In the right renal pelvis is a 5 mm stone. In the inferior pole of the left kidney there is a focal renal stone with a diameter Report of 1.5 x 0.7 cm. Urinary bladder: The urinary bladder is within normal limits. Bowel: There are no distended loops of bowel. The appendix is unremarkable. There are diverticula of the descending sigmoid colon without surrounding inflammation. Nodes: No lymphadenopathy. Aorta: There is no abdominal aortic aneurysm. Peritoneum: No free fluid or free air. Pelvis: The pelvic organs are not identified and may be surgically absent. Abdominal wall: The abdominal wall is intact. Bones :There are no acute osseous changes. Soft tissues: The soft tissues are unremarkable. Ordering Provider: Kaitlyn Beasley FINAL REPORT Dictated: 05/07/2023 12:54 pm Venu Duarte MD, V. Signed (Electronic Signature): 05/07/2023 12:54 pm Signed by: Venu Duarte MD, V. Transcribed by: JEFFERSON Technologist: ARMAND Technical Comments Rectal Contrast Given? No Oral contrast amount in ml's: 0 Normal [facility] Consent for Treatmenton 04-25 Consent for Treatment [id number] 53#1.00CD:127 Normal [facility] Physician Orderon 05-02-2023 Physician Order [id number]#1.00CD:127 Normal [facility] XR Abdomen 1 Viewon 04-21-20 23 XR Abdomen 1 View Exam Date/Time: 04/17/2023 18:38 EDT Reason for Exam: Kidney stone Report IMPRESSION: FOCAL DENSITIES PROJECTING ON THE LEFT KIDNEY, OF INDETERMINATE NATURE ON THIS EXAM. CLINICAL HISTORY: Kidney stone. Right-sided pain. COMPARISON: 11/18/2022. COMMENT: AP supine, 2 views. There is gas in nondistended bowel. No dilated bowel loops are noted. There is a 1 cm ovoid density projecting on the region of the left renal pelvis and there is a 0.5 cm ovoid density projecting on the inferior left kidney. Whether these are urinary tract calcifications or are fortuitous superimposed densities is not determined on this exam. There are small calcified phleboliths in the left pelvis. Ordering Provider: Kaitlyn Beasley FINAL REPORT Dictated: 04/21/2023 4:51 pm Tony Galvez M.D. Signed (Electronic Signature): 04/21/2023 4:51 pm Signed by: Tony Galvez M.D. Transcribed by: JEFFERSON Technologist: NISREEN Technical Comments Radiation Dose: Ka,r in mGy = . DAP = . Normal [facility] Consent for Treatmenton 03-26 Consent for Treatment [id number] 82#[id number]:127 Normal [facility] Physician Orderon 04-17-2023 Physician Order [id number] 442#1.00CD:127 [facility] MG MAMM DIAGNOSTIC 3D VON CA Don 11-25-2022 MG MAMM DIAGNOSTIC 3D VON CAD Patient: NKECHI CARR Exam Date: 11/25/2022 : 1980 Gender:F Ordering : BOYD SIMMONS . Admission #: [id number] Family : Order #: [id number] CLICK HERE TO VIEW EXAM RADIOLOGY REPORT PROCEDURE: MAMMOGRAM DIAGNOSTIC 3D BILATERAL CAD, 11/25/2022, 13:02 ULTRASOUND BREAST RIGHT LIMITED, 11/25/2022, 13:34 COMPARISON: None. INDICATIONS: Lump in upper inner quadrant of right breast Calculator Name NCI Breast Cancer Risk Assessment Tool 5 Year Breast Cancer Risk 0.60% Lifetime Breast Cancer Risk 8.90% Personal Breast Cancer No Personal Ovarian Cancer No Treatments None Family Cancers None LOCATION: [facility] BREAST COMPOSITION: Extremely dense, which lowers the sensitivity of mammography. FINDINGS: DIAGNOSTIC CATEGORY 2--BENIGN FINDING: RIGHT BREAST: Skin surface marker localizing the palpable lump is present over the posterior upper-outer quadrant. Mammographic views demonstrate dense fibroglandular tissue within this area. Ultrasound evaluation demonstrates dense fibroglandular tissue within the upper-outer quadrant and a collection of small benign-appearing cysts. LEFT BREAST: No significant suspicious finding. RECOMMENDATIONS: ROUTINE MAMMOGRAM AND CLINICAL EVALUATION IN 12 MONTHS. PLEASE NOTE: A NORMAL MAMMOGRAM DOES NOT EXCLUDE THE POSSIBILITY OF BREAST CANCER. A CLINICALLY SUSPICIOUS PALPABLE LUMP SHOULD BE BIOPSIED. Dictated by: Aime Adams M.D. on 11/25/2022 at 14:54 Approved by: Aime Adams M.D. on 11/25/2022 at 14:58 Normal [facility] US BREAST RIGHT LIMITEDon US BREAST RIGHT LIMITED Patient: NKECHI CARR Exam Date: 11/25/2022 : 1980 Gender:F Ordering : BOYD SIMMONS . Admission #: [id number] Family : Order #: [id number] CLICK HERE TO VIEW EXAM RADIOLOGY REPORT PROCEDURE: MAMMOGRAM DIAGNOSTIC 3D BILATERAL CAD, 11/25/2022, 13:02 ULTRASOUND BREAST RIGHT LIMITED, 11/25/2022, 13:34 COMPARISON: None. INDICATIONS: Lump in upper inner quadrant of right breast Calculator Name NCI Breast Cancer Risk Assessment Tool 5 Year Breast Cancer Risk 0.60% Lifetime Breast Cancer Risk 8.90% Personal Breast Cancer No Personal Ovarian Cancer No Treatments None Family Cancers None LOCATION: [facility] BREAST COMPOSITION: Extremely dense, which lowers the sensitivity of mammography. FINDINGS: DIAGNOSTIC CATEGORY 2--BENIGN FINDING: RIGHT BREAST: Skin surface marker localizing the palpable lump is present over the posterior upper-outer quadrant. Mammographic views demonstrate dense fibroglandular tissue within this area. Ultrasound evaluation demonstrates dense fibroglandular tissue within the upper-outer quadrant and a collection of small benign-appearing cysts. LEFT BREAST: No significant suspicious finding. RECOMMENDATIONS: ROUTINE MAMMOGRAM AND CLINICAL EVALUATION IN 12 MONTHS. PLEASE NOTE: A NORMAL MAMMOGRAM DOES NOT EXCLUDE THE POSSIBILITY OF BREAST CANCER. A CLINICALLY SUSPICIOUS PALPABLE LUMP SHOULD BE BIOPSIED. Dictated by: Aime Adams M.D. on 11/25/2022 at 14:54 Approved by: Aime Adams M.D. on 11/25/2022 at 14:58 Normal [facility] Coding Summary.on 11-23-2022 Coding Summary. CD:[id number] bWw+PGhlYWQ+IQ3LLXP yK67ziGVngC5aY8BMYJ lOSywgQVBQTElOSyIgb iFiCJ1afFUrNLJf IC8+JO3fIPZaRzkfzQE eh9A4hXT2R80rki5nSN jweJP7KQXyFiGmozpsk 7afbZp7IAvdNlavFlSy GXUurD81NXL7gP16Kx5 6uELapGZis9ftjVx0Jt KeDLYnSMW0lPogNClyc 2WnUOIwR81hxKHpl4N0 IGNvbGxhcHNlOyBlbXB 6eH4kNNwaigfbv1hmma nbUvo3zb09cNUct0Q3w IL4A2YyxaN0TMVnpGCh MnahiWFOaY0tgorlm7f mwmyiKgQdVPRaFNr1EA e6GQBqzErlAuTfNT10C ZQ0PDFkebUtI2VcSCEf nWvjNhH7q1U6Wj9HV0H TDyoxD5WKOKFFXEcdoK Q+WK32iq76A4AnCqreS dx3EHXvKCY8vHX9rR8v ANTtYBwab9M0kEJ2B6M gbkGvxs1bj9bxCGEqUI zjK75lvQQet0T6ARFjm UZ0UPCohRntEiKubL24 Oyc+IZPymSpnr1EmNpi ze9ugy8njbFa3MtyvKK UabxObuBnwTOF6i1AmD w1sRTXruOT3xOF8oX9n AjPvEqS4ADjiZ012PvT hdZUtSioxI36hC8HyhO A+OXCyMmq6JQVwdCzrY J5fE4PyZJSwqmwpaVZi xFygKO2bYMTekilfGHV rqO6zPKPyG9f8QdTiOg A7OQkiT7UxTYTuciokP c54sL6tXuCxQgV1CHyn L0DwhgC5HXKmpZWzDKt iMCX3V52ah2N8LJNwBR AoWOB2tHC9qE6sxOklv jogbGVmdDsgdmVydGlj EUgqDPieX195SMHirRt nPkNvZGluZyBEYXRlOi AgMDQvMDEvMjAyMzwvd GQ+EBYrRRB9fAqhOUNx lZSuQQwfPu1gyXatdKv vTV6sFBYkdudiSLHunG 1dGJWvlXDzqEfhII1jO XVyqxlov057GeMyANO4 DKEhpFLeY7WobF0iJdN pNNRiUTBnY7EgrDBcZV pnT159VUlmQaO1ZVKcm aXpT5TiEOIilRsxKsK6 c3N3Jx3Iq9IphrqcC2Y hqOAdRiWhYlhoPQj7I3 RkPjwvdHI+IG23UDSoR M15WZt2HGS0zCwnHNnz GRNdO9HwvO8kCoKjFLB kZGRkOyc+PHRhYmxlIH dpZHRoPScxMDAlJyBzd UxgYB6eTf3iENBwNOTo qKosxKMlOuYzx1mlRWI bTDudGA3poUnqF8GviN U8UBHdx7y7Er99I05uR 3JvdXA+SXMsxJG2kNI3 lW2dUuUpEwT9OYzzG65 0PqUrqIHlKbtdm7ggu6 dswUd5IlL6ZVWozxLex SjfQGX4r4XjRm17P60k IHdpZHRoPSIxNSUiIHZ cmZzjus8aeL3oKs8+PG CesHD6jBK5yF7aTgTaC oW3IGdfX871VgCofFWm Vytdl8lho3tjiNy5ItR gEQXrunTtyLfnSPK3v3 BmYa29Z1QgxXlwg3CoJ bi7ki43lUVru1Q1pJH6 G9RoIUZhrychfGQzrZy nFF5jEBAoblzePRScbU 2fBUWbN8p2QrAnGdE6I AxmP1XphbA5EYYgxDWl WWLhuKHMyG0cvugoh0c durpzSsWpCYHaTEl9SD v8PINvjZkeTiNdYXA9F fG3UZQ6bJEksR0ejYzs nrjliR0kJpr+CLJ2yHG ypVDZMO7aOjmiiDJ+PH LmPZL5mYkhVTlrCJKaq B3qSTWwO3m9JzQySbH7 RYbwP5GermB4NOBmpBN vPDVvsCRIrA4pclzvq7 lvzkpvKvVfANOwWMc2J Ss3RLQmmUmtOfPbZYP9 XfA9OSI6xIIweM3mlHa lsznmyX2oBqd+QmlydG fdSBC0VBz7N3LeZyl0R JZdwKnpFQ8zdSTwNZzr Hx5sqWfprSmfGH6nWHR tqicbc557RoHyw8bpWQ PnbUQgDCofNLO2H87sa 3R6SDIpIAAaQWU7qSG5 dG1hbNnmjlvcdHTvnSr gdmVydGljYWwtYWxpZ2 09GQTyqXxwNtRnRLa8B 1HlDeb4FPDcpEvoVM1o wUPlJTblXl2soMynaDa jZZ0gRUOdzqfsi496Bg Dth9qmPMAwgXCqHEygT AG3V57js2P4VZVpPSPs CDX1iOV2tN9edLgezgu gbGVmdDsgdmVydGljYW coLVmjG796KSPykWzlY eHhkUj6Z9BfKao9FJKg dRdfLW8haCAnLUizWs2 eeWyvvNuaJS3lZTSemh mlg100ZuRnu0ttPOGwc VUwKMwpVDK2E85xu4N2 YXNjFVJbAYI9nRH9mZ6 hbGlnbjogbGVmdDsgdm KbbHkhQCyzFLklR009N HRvcDsnPlBhdGllbnQg GMqoYYd0Y0ZkYooqsMA +MU04GOQvVZ94cSRwhR Gtm2arhIs7HqJgVDVjH UJ8lPlzJJbnp9WnBYWr C60owGVrn7H2YUNikQi eqMZpLrMylKG0fR1lBP itwkest4nvgolfDaqum 4dxao52jS45I58hWDlw ZHRoPSIzMCUiIHZhbGl gdf2mkC2xZt3+PGNvbC D4jVL2uU4gBLDrSeO0A QybU294VvTybSNnDucf p5nrx7rphYa1FsD7JLG atcWimJhhYXP3t8LmVj 83P21kGPjfXEYdADQmF CBaSLUaoLowis4oxK3w Ii8+BNZtnWR8cLS4tY9 vDyAgTvM6XEutX396Ur CwwRQpYdrnR75eG8Hmp XA+CTFnMud5HGXwmLnw CN3vkDIdGUluKk8cWNX 3PcUySeToGXxzD5LxIS GwqsbqpcbfkVY7CHSeW NVpkZ76Da6cpMojJPEg vLYDrJ3rwewlq6fcdbp iAtImSXKtSWt4TNt5VS QoeZgwLsCgLIJ2HdB1G UX1yYLgcL6yzKzqgbhv pF6iL6NqBBTbnjzgHs0 0lX4zCdVcIfM5HWwjTe c+UkVORlJPVywgTUlDS EVMTEUgQTwvdGQ+PHRk VFK5zLxuGJwiZHAfbS9 xSFOgA3f6JsBnYyT1KC ihX3XvWUXrfvtuCk59d H2sSyPrVvM4MBynA4Zq saK4NNBgtFOjJPafWGX 4U60op8P3XJAhTVDySK U0fDL7gN3ttGbritzvz GVmdDsgdmVydGljYWwt PBurK459KOAywYbcYrB eQaB7ZaC7KUE9B8QsCv o4SJFbhRxqDH3xiLHgB SkwLf7whOjkqIbiJC5v FZYgiywvIVOvvS5oDLZ agXAqfHcvEX1qNHEegi tod904LgTeCZW1VZPol KZvT1BorO9uYeVgHPRs DGLqC0BdmETvAFlsJ46 3ZFmlOdU4PTBsygTgJ5 CrYCAjnUknVuD3r1Z8X j38IeTPPNOwedkgmBT+ AHOzCOT1nGiuXVleVLG grA7kCEHhN9x8OvYzHe Z0IErgU6DlOGKgvoclD n25zP8gDgAoIaU3UBnl P2UyswF1SHJniEHeGBi kLUD0S12fi6F4FXXjWT GeHJI3qUS8wK0vtTcfo jogbGVmdDsgdmVydGlj OMdhPAypK618VJRmhCn nPkZlbWFsZTwvdGQ+PH ScLNS5lOlcOQftXCSki A6dHGLnJ6r5RsAeWdR8 VQweC1AdLYNctgdrMv5 5fC9kVzPmOjG0PZxpR9 SbhzW9NPSlcWPrJHxgW RD4O72nf1D6IKUaZSWj FEB7cZZ5nR4laKdazvz gbGVmdDsgdmVydGljYW vrQFbsZ801QUBnqOleD r05lYCrbKrutwM5D2Lm PjwvdHI+VM74POFmNM1 1kSXmnLLvh3pahVx3Cy QxCOQtNJJ5iCwsTFnir 5AdIWCyB54foRMme6O9 IGNvbGxhcHNlOyBlbXB 8dF4iVEukytaca4dolh aiXxaxt3crlb87xH91R 29sIHdpZHRoPSIzMCUi JENhmPohwz4krI4uDj1 +WFCnaVB8uTS5lP9kRa KoObV2UKwaZ984KmOyt NEyKslbl5xiu3cfoIn2 IjIwJSIgdmFsaWduPSJ 6n3DiMt60I40bLNeeGJ RoPSIyMCUiIHZhbGlnb b9ekQ5cTe7+SU7dd7lo mv98rN48wNG+PHRkIHN 9pUbiIBxkDWSsfT1eLR fxKrQ3ODXjElNurZ91j GZyMKyiNy6ocFhzyCqq ST7eFPInojxqw203XsQ rb1abONUytOYhTYmrBK R5C64lr7W6GGOrAGYqR PL7aQF7uC1ovSaqtjnt bGVmdDsgdmVydGljYWw vGUdtA281VJFmyTztSq MskEOoF2depuDZQA8oW jwvdGQ+LIFgKPI2sFdt PNmkMMOhpW3hTPWwT5v 4JaJrYaQ1JPnpY1Jtyr Q0RVLcqTTkAKMgeFKBe D3hqnfdx6aabvypVfGy TCDoTEe6NUq5SKTbaPt qInDvJBK5TlU3MCQ4fT GfgY3wdAxbqsddmQ4oC yc+RklOOjwvdGQ+PHRk ENR9rHqgEOqeCWNgpC3 xCNSmG5d6KuAvJpN7HC kcU4GskaY9TEYvlXDaG MRzyUJYuE4lcajwa4ri wlybYjBkDVWeGCx3TEg 7YWDaxYggYySrPCW4Je A1AZT9mRBulW0isOqco pnczB1bAud+TVJOOjwv dGQ+WTNgMZI6dXvaTSn rSHOalL3kSOIkS9o2Pl FwLsX5LZrwD5WpiuH2I BZwxHJkBWOqgBVVqT0w breux3ksgdpgZkUnTGY bBBy7KPz7EYUrlPbnBg UtJLR7NwZ5SVK8fNXuy W1bcTpownuesJ5dZtu+ INX0PLE1TS50JO19T6T yPjwvdGFibGU+PHRhYm xlIHdpZHRoPScxMDAlJ vPaiBilOO5aQj8xMGRs LWNvbGxh (more content not included)... [facility] Provider Letteron 11-19-2022 Provider Letter November 19, 2022 NKECHI CARR [address] [place] [phone] NKECHI CARR 1980 Dear Nkechi, You missed your scheduled appointment on: 11/19/2022 and the purpose of this letter is to inform you of our *No Show Policy*. Our appointment slots fill rapidly and when we have a no show appointment that time is lost. We could have used that time slot to care for a patient who needed to see one of our providers. Therefore, we ask that you call 24 hours in advance to cancel your appointment. After the fifth no show within that twelve (12) month period, you are subject to dismissal from the practice. This policy is in place so that we can meet the needs of all of our patients and we do appreciate your understanding. Sincerely, [facility] [place] [place] [address] Normal [facility] XR Abdomen 1 Viewon 11-20-19 23 XR Abdomen 1 View Exam Date/Time: 11/18/2022 12:59 EDT Reason for Exam: N20.0 calculus of kidney;Kidney stone Report IMPRESSION: NO URINARY TRACT CALCIFICATION IS DELINEATED. CLINICAL HISTORY: Kidney stone, N20.0 calculus of kidney. COMMENT: AP supine, 2 views. The kidneys are partially obscured. No urinary tract calcification is delineated on this study. There are calcified phleboliths in the pelvis. The abdominal gas pattern is unremarkable. Ordering Provider: Walter COLBY FINAL REPORT Dictated: 11/19/2022 4:22 pm Tony Galvez M.D. Signed (Electronic Signature): 11/19/2022 4:22 pm Signed by: Tony Galvez M.D. Transcribed by: JEFFERSON Technologist: SUSAN Technical Comments Radiation Dose: Ka,r in mGy = na DAP = na Normal [facility] Consent for Treatmenton 10-24 Consent for Treatment [id number]#[id number]:127 Normal [facility] CULTURE WOUNDon 11-17-2022 CULTURE WOUND Isolate 1 Escherichia coli Light growth of Isolate 2 Enterococcus faecalis Light growth of ORGANISM 1 Escherichia coli ANTIBIOTIC M.I.C RX STATUS Ampicillin <=2 S F Ampicillin/Sulbacta m <=2 S F Piperacillin/Tazoba ctam <=4 S F Cefazolin <=4 S F Ceftazidime <=1 S F Ceftriaxone <=1 S F Ertapenem <=0.5 S F Imipenem <=0.25 S F Amikacin <=2 S F Gentamicin <=1 S F Tobramycin <=1 S F Ciprofloxacin <=0.25 S F Levofloxacin <=0.12 S F Trimethoprim/Sulfam ethoxazole <=20 S F ORGANISM 2 Enterococcus faecalis ANTIBIOTIC M.I.C RX STATUS Beta-Lactamase Neg NEG F Benzylpenicillin 4 S F Ampicillin <=2 S F Gentamicin High Level (synergy) SYN-R R F Streptomycin High Level (synergy) SYN-S S F Quinupristin/Dalfop ristin 2 R F Linezolid 2 S F Vancomycin 1 S F Normal [facility] Comment on above: Performed By: #### W OUNDCX #### [facility] [address] [place] [address] Dr. Neftali Alexander Auth for Release of Medical Recordson 11-07-2022 Auth for Release of Medical Records [id number]#[id number]:127 [facility] Auth for Release of Medical Records [id number] E1#[id number]:127 [facility] Bacterial susceptibility wild el by [facility] 07-20-2022 Bacterial susceptibility panel KALYAN (Isol) ORDER#: [id number] ORDERED BY: ERLINDA GAYTAN SOURCE: Urine Clean Catch COLLECTED: 07/20/22 12:29 ANTIBIOTICS AT [facility].: RECEIVED : 07/20/22 12:29 Culture, Urine FINAL 07/22/22 11:05 Performed at [address] [address] ([phone] Enterococcus faecalis >[id number] CFU/ML _ E. faecalis ANTIBIOTICS KALYAN Interp _ Ampicillin <=2 S Nitrofurantoin <=16 S Tetracycline >=16 R Vancomycin 1 S _ S=SUSCEPTIBLE I=INTERMEDIATE R=RESISTANT _ Normal [facility] Comment on above: Performed By: #### 5 [id number] #### [facility] [address] [place] [address] C-Reactive Proteinon 022 CRP [Mass/Vol] 28.5 mg/L Critically high 0.0-5.0 [facility] Comment on above: Performed By: #### C RP #### [facility] [address] [place] [address] CBC With Platelet and Differ entialon 07-20-2022 Basophils (Bld) [#/Vol] 0.1 10*3/uL Normal 0.0-0.2 [facility] Comment on above: Performed By: #### C BCWD #### [facility] [address] [place] [address] Basophils/100 WBC (Bld) 1.0 % Normal [facility] Comment on above: Performed By: #### C BCWD #### [facility] [address] [place] [address] Eosinophils (Bld) [#/Vol] 0.0 10*3/uL Normal 0.0-0.7 [facility] Comment on above: Performed By: #### C BCWD #### [facility] [address] [place] [address] Eosinophils/100 WBC (Bld) 0.5 % Normal [facility] Comment on above: Performed By: #### C BCWD #### [facility] [address] [place] [address] Erythrocyte distribution width (RBC) [Ratio] 12.9 % Normal 11.5-14.5 [facility] Comment on above: Performed By: #### C BCWD #### [facility] [address] [place] [address] Hematocrit (Bld) [Volume fraction] 37.1 % Normal 37.0-47.0 [facility] Comment on above: Performed By: #### C BCWD #### [facility] [address] [place] [address] Hemoglobin (Bld) [Mass/Vol] 12.4 g/dL Normal 12.0-16.0 [facility] Comment on above: Performed By: #### C BCWD #### [facility] [address] [place] [address] Lymphocytes (Bld) [#/Vol] 2.0 10*3/uL Normal 1.0-4.8 [facility] Comment on above: Performed By: #### C BCWD #### [facility] [address] [place] [address] Lymphocytes/100 WBC (Bld) 25.4 % Normal [facility] Comment on above: Performed By: #### C BCWD #### [facility] [address] [place] [address] MCH (RBC) [Entitic mass] 28.8 pg Normal 27.0-31.3 [facility] Comment on above: Performed By: #### C BCWD #### [facility] [address] [place] [address] MCHC 33.4 % Normal 33.0-37.0 [facility] Comment on above: Performed By: #### C BCWD #### [facility] [address] [place] [address] MCV (RBC) [Entitic vol] 86.2 fL Normal 79.4-94.8 [facility] Comment on above: Performed By: #### C BCWD #### [facility] [address] [place] [address] Monocytes (Bld) [#/Vol] 0.5 10*3/uL Normal 0.2-0.8 [facility] Comment on above: Performed By: #### C BCWD #### [facility] [address] [place] [address] Monocytes/100 WBC (Bld) 5.8 % Normal [facility] Comment on above: Performed By: #### C BCWD #### [facility] [address] [place] [address] Neutrophils (Bld) [#/Vol] 5.3 10*3/uL Normal 1.4-6.5 [facility] Comment on above: Performed By: #### C BCWD #### [facility] [address] [place] [address] Neutrophils/100 WBC (Bld) 67.3 % Normal [facility] Comment on above: Performed By: #### C BCWD #### [facility] [address] [place] [address] Platelets (Bld) [#/Vol] 497 10*3/uL Critically high 130-40 0 [facility] Comment on above: Performed By: #### C BCWD #### [facility] [address] [place] [address] RBC (Bld) [#/Vol] 4.30 10*6/uL Normal 4.20-5.40 [facility] Comment on above: Performed By: #### C BCWD #### [facility] [address] [place] [address] WBC (Bld) [#/Vol] 7.8 10*3/uL Normal 4.8-10.8 [facility] Comment on above: Performed By: #### C BCWD #### [facility] [address] [place] [address] CT KIDNEY WO CONTRASTon 06-26 CT KIDNEY WO CONTRAST EXAMINATION: CT OF THE ABDOMEN AND PELVIS WITHOUT CONTRAST 07/20/2022 12:15 pm TECHNIQUE: CT of the abdomen and pelvis was performed without the administration of intravenous contrast. Oral contrast was administered. Multiplanar reformatted images are provided for review. Automated exposure control, iterative reconstruction, and/or weight based adjustment of the mA/kV was utilized to reduce the radiation dose to as low as reasonably achievable. COMPARISON: None. HISTORY: ORDERING SYSTEM PROVIDED HISTORY: Hx kidney stones; stents placed 2 weeks ago; worsening pain RLQ; assess for obstructive uropathy TECHNOLOGIST PROVIDED HISTORY: Reason for exam:->Hx kidney stones; stents placed 2 weeks ago; worsening pain RLQ; assess for obstructive uropathy Decision Support Exception - unselect if not a suspected or confirmed emergency medical condition->Emergenc y Medical Condition (MA) What reading provider will be dictating this exam?->CRC FINDINGS: Lower Chest: The lung bases are grossly clear. Organs: The liver is homogeneous. The spleen is unremarkable. The pancreas is unremarkable. No stones in the gallbladder. No intrahepatic or extrahepatic biliary ductal dilatation. There is a stent identified within the left kidney. There is mild distension seen left renal collecting system and left ureter. The stent is in satisfactory position. The right kidney is grossly unremarkable. No evidence of obvious obstruction. GI/Bowel: The stomach is unremarkable. No wall thickening. The small bowel is within normal limits. Increased stool burden seen diffusely throughout the colon. No signs of obvious obstruction or obstructing lesion. Pelvis: The bladder is mildly distended. No wall thickening. The uterus has been surgically removed. Peritoneum/Retroper itoneum: There is no abdominal retroperitoneal lymphadenopathy. No free fluid or free air. No abnormal mass or fluid collections identified. No pelvic adenopathy. Bones/Soft Tissues: Bony structures reveal minimal degenerative changes seen within the spine and pelvis. No ventral abdominal wall mass or defect. Findings to suggest a bartholin gland cyst identified on the left. IMPRESSION: Left ureteral stent in satisfactory position with mild dilatation seen of the left renal collecting system and left ureter. The right kidney is unremarkable. No stones or evidence of obstruction. Interpreted by: Fariba Cooper MD Signed by: Fariba Cooper MD 07/20/22 Final result Normal [facility] Comprehensive Metabolic Pane eddie 07-20-2022 Albumin [Mass/Vol] 4.3 g/dL Normal 3.5-4.6 [facility] Comment on above: Performed By: #### C MP #### [facility] [address] [place] [address] ALP [Catalytic activity/Vol] 94 U/L Normal 40-130 [facility] Comment on above: Performed By: #### C MP #### [facility] [address] [place] [address] ALT [Catalytic activity/Vol] 9 U/L Normal 0-33 [facility] Comment on above: Performed By: #### C MP #### [facility] [address] [place] [address] Anion gap [Moles/Vol] 12 mmol/L Normal 9-15 [facility] Comment on above: Performed By: #### C MP #### [facility] [address] [place] [address] AST [Catalytic activity/Vol] 14 U/L Normal 0-35 [facility] Comment on above: Performed By: #### C MP #### [facility] [address] [place] [address] Bilirubin [Mass/Vol] mg/dL Normal 0.2-0.7 [facility] Comment on above: Performed By: #### C MP #### [facility] [address] [place] [address] Calcium [Mass/Vol] 9.3 mg/dL Normal 8.5-9.9 [facility] Comment on above: Performed By: #### C MP #### [facility] [address] [place] [address] Chloride [Moles/Vol] 98 mmol/L Normal 95-107 [facility] Comment on above: Performed By: #### C MP #### [facility] [address] [place] [address] CO2 [Moles/Vol] 28 mmol/L Normal 20-31 [facility] Comment on above: Performed By: #### C MP #### [facility] [address] [place] [address] Creatinine [Mass/Vol] 0.75 mg/dL Normal 0.50-0.90 [facility] Comment on above: Performed By: #### C MP #### [facility] [address] [place] [address] GFR >60.0 Normal >60 [facility] Comment on above: Result Comment: [facility] calculator link https://www.kidney.org/professionals/kdoqi/gfr_[email or web address] Effective May 27, 2022 These results are not intended for use in patients <18 years of age. eGFR results are calculated without a race factor using the 2020 CKD-EPI equation. Careful clinical correlation is recommended, particularly when comparing to results calculated using previous equations. The CKD-EPI equation is less accurate in patients with extremes of muscle mass, extra-renal metabolism of creatinine, excessive creatinine ingestion, or following therapy that affects renal tubular secretion. Performed By: #### C MP #### [facility] [address] [place] [address] Globulin (S) [Mass/Vol] 3.6 g/dL Critically high 2.3-3.5 [facility] Comment on above: Performed By: #### C MP #### [facility] [address] [place] [address] Glucose [Mass/Vol] 99 mg/dL Normal 70-99 [facility] Comment on above: Performed By: #### C MP #### [facility] [address] [place] [address] Potassium [Moles/Vol] 3.4 mmol/L Normal 3.4-4.9 [facility] Comment on above: Performed By: #### C MP #### [facility] [address] [place] [address] Protein [Mass/Vol] 7.9 g/dL Normal 6.3-8.0 [facility] Comment on above: Performed By: #### C MP #### [facility] [address] [place] [address] Sodium [Moles/Vol] 138 mmol/L Normal 135-144 [facility] Comment on above: Performed By: #### C MP #### [facility] [address] [place] [address] Urea nitrogen [Mass/Vol] 10 mg/dL Normal 6-20 [facility] Comment on above: Performed By: #### C MP #### [facility] [address] [place] [address] Creatine Kinaseon 07-20-2022 CK [Catalytic activity/Vol] 37 U/L Normal 0-170 [facility] Comment on above: Performed By: #### U AR #### [facility] [address] [place] [address] Culture, Urineon 07-20-2022 Culture, Urine ORDER#: [id number] ORDERED BY: ERLINDA GAYTAN SOURCE: Urine Clean Catch COLLECTED: 07/20/22 12:29 ANTIBIOTICS AT MICHELLE.: RECEIVED : 07/20/22 12:29 Culture, Urine PRELIM 07/21/22 20:30 Cult,Urine: CULTURE IN [place] [address] Normal [facility] Comment on above: Performed By: #### C XURN #### [facility] [address] [place] [address] Lactic Acidon 07-20-2022 Lactate [Moles/Vol] 1.1 mmol/L Normal 0.5-2.2 [facility] Comment on above: Performed By: #### U AR #### [facility] [address] [place] [address] Partial Thromboplastin Timeo n 07-20-2022 aPTT Coag (Bld) [Time] 34.5 s Normal 24.4-36.8 [facility] Comment on above: Result Comment: Effe ctive 06/28/2020: Heparin Therapeutic Range: 64.0 ? 98.0 seconds. Performed By: #### P TT #### [facility] [address] [place] [address] Prothrombin Timeon INR Coag (PPP) [Relative time] 1.0 {INR} Normal [facility] Comment on above: Performed By: #### P T #### [facility] [address] [place] [address] PT Coag (PPP) [Time] 13.4 s Normal 12.3-14.9 [facility] Comment on above: Performed By: #### P T #### [facility] [address] [place] [address] UR Drugs of Abuse Panelon Drug Screen Comment see below Normal [facility] Comment on above: Result Comment: This method is a screening test to detect only these drug classes as part of a medical workup. Confirmatory testing by another method should be ordered if clinically indicated. Performed By: #### U DRGS #### [facility] [address] [place] [address] UR Amphetamines Screen Positive Abnormal Negative < [facility] Comment on above: Performed By: #### U DRGS #### [facility] [address] [place] [address] UR Barbiturates Screen Negative Normal Negative < [facility] Comment on above: Performed By: #### U DRGS #### [facility] [address] [place] [address] UR Benzo Screen Negative Normal Negative < [facility] Comment on above: Performed By: #### U DRGS #### [facility] [address] [place] [address] UR Cannabinoids Screen Positive Abnormal Negative < [facility] Comment on above: Performed By: #### U DRGS #### [facility] [address] [place] [address] UR Cocaine Screen Negative Normal Negative < [facility] Comment on above: Performed By: #### U DRGS #### [facility] [address] [place] [address] UR Fentanyl Screen Positive Abnormal Negative < [facility] Comment on above: Performed By: #### U DRGS #### [facility] [address] [place] [address] UR Methadone Screen Negative Normal Negative < [facility] Comment on above: Performed By: #### U DRGS #### [facility] [address] [place] [address] UR Opiates Screen Negative Normal Negative < [facility] Comment on above: Performed By: #### U DRGS #### [facility] [address] [place] [address] UR Oxycodone Screen Negative Normal Negative < [facility] Comment on above: Performed By: #### U DRGS #### [facility] [address] [place] [address] UR PCP Screen Negative Normal Negative < [facility] Comment on above: Performed By: #### U DRGS #### [facility] [address] [place] [address] UR Propoxyphene Screen Negative Normal Negative < [facility] Comment on above: Performed By: #### U DRGS #### [facility] [address] [place] [address] Urinalysis, reflex to cultur christiano 07-20-2022 Urine Reflexed to Culture Yes Normal [facility] Comment on above: Performed By: #### U AR #### [facility] [address] [place] [address] Bilirubin Ql (U) Negative Normal Negative [facility] Comment on above: Performed By: #### U AR #### [facility] [address] [place] [address] Clarity (U) Clear Normal Clear [facility] Comment on above: Performed By: #### U AR #### [facility] [address] [place] [address] Color (U) Yellow Normal Straw/[place] [facility] Comment on above: Performed By: #### U AR #### [facility] [address] [place] [address] Glucose Ql (U) Negative Normal Negative [facility] Comment on above: Performed By: #### U AR #### [facility] [address] [place] [address] Hemoglobin Ql (U) Negative Normal Negative [facility] Comment on above: Performed By: #### U AR #### [facility] [address] [place] [address] Ketones Ql (U) Negative Normal Negative [facility] Comment on above: Performed By: #### U AR #### [facility] [address] [place] [address] Leukocyte esterase Test strip Ql (U) MODERATE Abnormal Negative [facility] Comment on above: Performed By: #### U AR #### [facility] [address] [place] [address] Nitrite Ql (U) Negative Normal Negative [facility] Comment on above: Performed By: #### U AR #### [facility] [address] [place] [address] pH (U) 7.0 [pH] Normal 5.0-9.0 [facility] Comment on above: Performed By: #### U AR #### [facility] [address] [place] [address] Protein Ql (U) Negative Normal Negative [facility] Comment on above: Performed By: #### U AR #### [facility] [address] [place] [address] Specific gravity (U) [Rel density] 1.012 Normal 1.005-1.03 [facility] Comment on above: Performed By: #### U AR #### [facility] [address] [place] [address] Urobilinogen Qn (U) 0.2 {Jane'U}/dL Normal < 2.0 [facility] Comment on above: Performed By: #### U AR #### [facility] [address] [place] [address] Urine Microscopicon 07-20-20 Urine RBC 0-2 Normal 0-2 [facility] Comment on above: Performed By: #### U KALYAN #### [facility] [address] [place] [address] Urine Bacteria RARE Abnormal Negative [facility] Comment on above: Performed By: #### U KALYAN #### [facility] [address] [place] [address] Urine Epithelial Cells Auto 3-5 Normal 0-5 [facility] Comment on above: Performed By: #### U KALYAN #### [facility] [address] [place] [address] Urine Hyaline Casts Auto 0-1 Normal 0-5 [facility] Comment on above: Performed By: #### U KALYAN #### [facility] [address] [place] [address] Urine WBC Auto 20-50 Abnormal 0-5 [facility] Comment on above: Performed By: #### U KALYAN #### [facility] [address] [place] [address] CHEMISTRYOrdered By: SYSTEM SYSTEM on 07-17-2022 Anion gap [Moles/Vol] 4 mmol/L Low 6 - 16 mEq/L [place] [facility] [place]isol Calcium [Mass/Vol] 8.1 mg/dL Low 8.9 - 11. 1 mg/dL [facility] Remisol Chloride [Moles/Vol] 107 mmol/L Normal 101 - 1 11 mmol/L [facility] Remisol CO2 [Moles/Vol] 25 mmol/L Normal 21 - 31 mmol/L [facility] Remisol Creatinine [Mass/Vol] 0.7 mg/dL Normal 0.5 - 1.3 mg/dL [facility] Remisol GFR/1.73 sq M.predicted among blacks MDRD (S/P/Bld) [Vol rate/Area] mL/min/1.73 m2 Normal >=59mL/min/1 .73 m2 [facility] Chem S GFR/1.73 sq M.predicted among non-blacks MDRD (S/P/Bld) [Vol rate/Area] mL/min/1.73 m2 Normal >=59mL/min/1 .73 m2 [facility] Chem S Glucose [Mass/Vol] 96 mg/dL Normal 55 - 199 mg/dL [facility] Potassium [Moles/Vol] 3.9 mmol/L Normal 3.5 - 5.3 mmol/L [facility] Sodium [Moles/Vol] 132 mmol/L Low 135 - 145 mmol/L [facility] Urea nitrogen [Mass/Vol] 10 mg/dL Normal 5 - 21 mg/d L [facility] Urea nitrogen/Creatinine [Mass ratio] 14 mg/mg Normal 10 - 20 [facility] HEMATOLOGYOrdered By: SYSTEM SYSTEM on 07-17-2022 Basophils/100 WBC (Bld) 1.4 % Normal 0.0 - 2.0 % [facility] Basophils/Leukocytes Auto (Bld) [Pure # fraction] 0.1 E9/L Normal 0.0 - 0.2 E9/L [facility] Eosinophils/100 WBC (Bld) 1.3 % Normal 0.0 - 8.0 % [facility] Eosinophils/Leukocytes Auto (Bld) [Pure # fraction] 0.1 E9/L Normal 0.0 - 0.5 E9/L [facility] Lymphocytes/100 WBC (Bld) 13.8 % Low 14.0 - 50.0 % [facility] Lymphocytes/Leukocytes Auto (Bld) [Pure # fraction] 1.5 E9/L Normal 1.0 - 4.0 E9/L [facility] Monocytes/100 WBC (Bld) 10.9 % Normal 4.0 - 14.0 % [facility] Monocytes/Leukocytes Auto (Bld) [Pure # fraction] 1.2 E9/L High 0.2 - 1.0 E9/L [facility] Neutrophils/100 WBC (Bld) 72.6 % Normal 36.0 - 75.0 % [facility] Neutrophils/Leukocytes Auto (Bld) [Pure # fraction] 7.6 E9/L High 2.0 - 7.5 E9/L [facility] HEMATOLOGYOrdered By: Charmaine Green on 07-17-2022 Erythrocyte distribution width (RBC) [Ratio] 12.9 % Normal 10.9 - 14.2 % [facility] Hematocrit (Bld) [Volume fraction] 31.5 % Low 34.0 - 46.0 % [facility] Hemoglobin (Bld) [Mass/Vol] 10.9 g/dL Low 12.0 - 16.0 gm/dL [facility] MCH (RBC) [Entitic mass] 28.7 pg Normal 27. 0 - 34.0 pg [facility] MCHC (RBC) [Mass/Vol] 34.7 g/dL Normal 31.4 - 36.0 gm/dL [facility] MCV (RBC) [Entitic vol] 82.8 fL Normal 80.0 - 100.0 fL [facility] Platelet mean volume (Bld) [Entitic vol] 8.2 fL Normal 6.4 - 10.8 fL [facility] Platelets (Bld) [#/Vol] 285.0 E9/L Normal 150. 0 - 500.0 E9/L [facility] RBC (Bld) [#/Vol] 3.8 E12/L Low 4.3 - 5.9 E12/L [facility] WBC corrected for nucl RBC Auto (Bld) [#/Vol] 10.5 E9/L Normal 4.0 - 11.0 E9/L [facility] CHEMISTRYOrdered By: SYSTEM SYSTEM on 07-16-2022 Lactate [Mass/Vol] 0.5 mmol/L Normal 0.5 - 2.2 mmol/L [facility] Albumin [Mass/Vol] 3.1 g/dL Low 3.3 - 5.0 gm/dL [facility] Albumin/Globulin [Mass ratio] 0.8 {ratio} Low 1.1 - 2.2 [facility] ALP [Catalytic activity/Vol] 78 [iU]/d Normal 21 - 98 Int._Unit/L [facility] ALT No additional P-5'-P [Catalytic activity/Vol] 15 [iU]/d Normal 6 - 46 Int._Unit/L [facility] Anion gap [Moles/Vol] 15 mmol/L Normal 6 - 16 mEq/L [facility] AST [Catalytic activity/Vol] 20 [iU]/d Normal 5 - 43 Int._Unit/L [facility] Bilirubin [Mass/Vol] 0.4 mg/dL Normal 0.0 - 1 .1 mg/dL [facility] Calcium [Mass/Vol] 8.6 mg/dL Low 8.9 - 11. 1 mg/dL [facility] Chloride [Moles/Vol] 94 mmol/L Low 101 - 1 11 mmol/L [facility] CO2 [Moles/Vol] 26 mmol/L Normal 21 - 31 mmol/L [facility] Creatinine [Mass/Vol] 0.9 mg/dL Normal 0.5 - 1.3 mg/dL [facility] GFR/1.73 sq M.predicted among blacks MDRD (S/P/Bld) [Vol rate/Area] mL/min/1.73 m2 Normal >=59mL/min/1 .73 m2 [facility] Chem S GFR/1.73 sq M.predicted among non-blacks MDRD (S/P/Bld) [Vol rate/Area] mL/min/1.73 m2 Normal >=59mL/min/1 .73 m2 [facility] Chem S Globulin (S) [Mass/Vol] 3.8 g/dL Normal 1.4 - 4.0 gm/dL [facility] Glucose [Mass/Vol] 100 mg/dL Normal 55 - 199 mg/dL [facility] Lactate [Mass/Vol] 3.3 mmol/L High 0.5 - 2.2 mmol/L [facility] Potassium [Moles/Vol] 3.2 mmol/L Low 3.5 - 5.3 mmol/L [facility] Protein [Mass/Vol] 6.9 g/dL Normal 6.0 - 7.8 gm/dL [facility] Sodium [Moles/Vol] 132 mmol/L Low 135 - 145 mmol/L [facility] Troponin I.cardiac [Mass/Vol] 3.70 pg/mL Low 10.10 - 27.10 pg/mL [facility] Urea nitrogen [Mass/Vol] 13 mg/dL Normal 5 - 21 mg/d L [facility] Urea nitrogen/Creatinine [Mass ratio] 14 mg/mg Normal 10 - 20 [facility] COAGULATIONOrdered By: Pooja Serra on 07-16-2022 aPTT Coag (PPP) [Time] 35.1 s Normal 25.1 - 36.5 second(s) [facility] Auto Coag INR Coag (PPP) [Relative time] 1.3 {INR} Invalid Interpretation Code [facility] Auto Coag PT Coag (PPP) [Time] 14.9 s High 9.4 - 1 2.5 second(s) [facility] Auto Coag HEMATOLOGYOrdered By: SYSTEM SYSTEM on 07-16-2022 Basophils/100 WBC (Bld) 0.6 % Normal 0.0 - 2.0 % [facility] Basophils/Leukocytes Auto (Bld) [Pure # fraction] 0.1 E9/L Normal 0.0 - 0.2 E9/L [facility] Eosinophils/100 WBC (Bld) 0.3 % Normal 0.0 - 8.0 % [facility] Eosinophils/Leukocytes Auto (Bld) [Pure # fraction] 0.0 E9/L Normal 0.0 - 0.5 E9/L [facility] Lymphocytes/100 WBC (Bld) 4.6 % Low 14.0 - 50.0 % [facility] Lymphocytes/Leukocytes Auto (Bld) [Pure # fraction] 0.7 E9/L Low 1.0 - 4.0 E9/L [facility] Monocytes/100 WBC (Bld) 7.6 % Normal 4.0 - 14.0 % [facility] Monocytes/Leukocytes Auto (Bld) [Pure # fraction] 1.2 E9/L High 0.2 - 1.0 E9/L [facility] Neutrophils/100 WBC (Bld) 86.9 % High 36.0 - 75.0 % [facility] Neutrophils/Leukocytes Auto (Bld) [Pure # fraction] 14.0 E9/L High 2.0 - 7.5 E9/L [facility] HEMATOLOGYOrdered By: Dalia Serra on 07-16-2022 Erythrocyte distribution width (RBC) [Ratio] 12.9 % Normal 10.9 - 14.2 % [facility] Hematocrit (Bld) [Volume fraction] 33.7 % Low 34.0 - 46.0 % [facility] Hemoglobin (Bld) [Mass/Vol] 11.8 g/dL Low 12.0 - 16.0 gm/dL [facility] MCH (RBC) [Entitic mass] 28.5 pg Normal 27. 0 - 34.0 pg [facility] MCHC (RBC) [Mass/Vol] 34.8 g/dL Normal 31.4 - 36.0 gm/dL [facility] MCV (RBC) [Entitic vol] 81.9 fL Normal 80.0 - 100.0 fL [facility] Platelet mean volume (Bld) [Entitic vol] 7.3 fL Normal 6.4 - 10.8 fL [facility] Platelets (Bld) [#/Vol] 342.0 E9/L Normal 150. 0 - 500.0 E9/L [facility] RBC (Bld) [#/Vol] 4.1 E12/L Low 4.3 - 5.9 E12/L [facility] WBC corrected for nucl RBC Auto (Bld) [#/Vol] 16.1 E9/L High 4.0 - 11.0 E9/L [facility] Comment on above: Result Comment: Slid e reviewed by BRIAN. Laboratory - Microbiology an d Antimicrobial susceptibilityOrdered By: Arline Avery on 07-16-2022 Bacteria identified Cx Nom (U) 10,000 cfu/ml Gram Negative [facility] [employer] Lab Technician species [facility] URINALYSISOrdered By: Dalia Serra on 07-16-2022 Bacteria LM Ql (Urine sed) 1+ /HPF Invalid Interpretation Code Trace/HPF [facility] Bilirubin Ql (U) Negative (07/16/22 9:38 PM) Normal Negative [facility] Clarity (U) Slightly Cloudy *ABN* (07/16/22 9:38 PM) Invalid Interpretation Code Clear [facility] Color (U) Yellow (07/16/22 9:38 PM) Normal Yellow [facility] Epithelial cells.squamous LM.HPF (Urine sed) [#/Area] 5-8 /HPF Normal 0-2/HPF [facility] Aut o SS Glucose Test strip (U) [Mass/Vol] Negative (07/16/22 9:38 PM) Normal Negative [facility] Hemoglobin Ql (U) Trace *ABN* (07/16/22 9:38 PM) Invalid Interpretation Code Negative [facility] Ketones (U) [Mass/Vol] Negative (07/16/22 9:38 PM) Normal Negative [facility]A Auto SS [place].plasma/[place].R BC (Bld) [Mass ratio] 4-20 /HPF Normal 0-3/HPF [facility] Au to SS Mucus Ql (Urine sed) Trace (07/16/22 9:38 PM) Normal [facility] SS Nitrite Ql (U) Negative (07/16/22 9:38 PM) Normal Negative [facility] pH (U) 7.0 *NA* (07/16/22 9:38 PM) Invalid Interpretation Code 5.0 - 9.0 [facility] Protein (U) [Mass/Vol] Trace *ABN* (07/16/22 9:38 PM) Invalid Interpretation Code Negative [facility] Specific gravity (U) [Rel density] 1.015 *NA* (07/16/22 9:38 PM) Invalid Interpretation Code 1.005 - 1.030 [facility] UA Spec Desc Clean Catch (07/16/22 9:38 PM) Normal [facility] Urobilinogen Qn (U) 1.6631433 {Jane'U}/dL Normal 0.0 - 1.0 EU/dL [facility] WBC Auto Ql (U) 3+ *ABN* (07/16/22 9:38 PM) Invalid Interpretation Code Negative [facility] SS WBC LM.HPF (Urine sed) [#/Area] /[HPF] Invalid Interpretation Code 0-5/HPF [facility] CALCULI, URINARYon 2 2,8 Dihydroxyadenine Normal [facility] Comment on above: Performed By: #### C ALCULI #### [facility] [address] [place] [address] Dr. Neftali Alexander Ammonium Acid Urate Normal [facility] Comment on above: Performed By: #### C ALCULI #### [facility] [address] [place] [address] Dr. Neftali Alexander Bilirubin Ql (U) Normal [facility] Comment on above: Performed By: #### C ALCULI #### [facility] [address] [place] [address] Dr. Neftali Alexander Ca Oxalate Dihydrate 30 % [facility] Comment on above: Performed By: #### C ALCULI #### [facility] [address] [address] [address] Neftali Alexander CaHPO4 ([place]) [facility] Comment on above: Performed By: #### C ALCULI #### [facility] [address] [address] [address] Neftali Alexander Calcium Bilirubinate [facility] Comment on above: Performed By: #### C ALCULI #### [facility] [address] [address] [address] Neftali Alexander Calcium Carbonate [facility] Comment on above: Performed By: #### C ALCULI #### [facility] [address] [address] [address] Neftali Alexander Calcium Oxalate Monohydrate 30 % [facility] Comment on above: Performed By: #### C ALCULI #### [facility] [address] [address] [address] Neftali Alexander Calcium Palmitate [facility] Comment on above: Performed By: #### C ALCULI #### [facility] [address] [place] [address] [address] Neftali Alexander Calcium Phosphate [facility] Comment on above: Performed By: #### C ALCULI #### [facility] [address] [address] [address] Neftali Alexander Calcium Stearate [facility] Comment on above: Performed By: #### C ALCULI #### [facility] [address] [address] [address] Neftali Alexander Carbonate Apatite [facility] Comment on above: Performed By: #### C ALCULI #### [facility] [address] [address] [address] Neftali Alexander Cellular Material [facility] Comment on above: Performed By: #### C ALCULI #### [facility] [address] [address] [address] Neftali Alexander Cholesterol [facility] Comment on above: Performed By: #### C ALCULI #### [facility] [address] [address] [address] Neftali Alexander Color (U) [facility] Comment on above: Performed By: #### C ALCULI #### [facility] [address] [address] [address] Neftali Alexander Comment Comment Normal [facility] Comment on above: Result Comment: Calc ium phosphate (hydroxyl form) includes hydroxyapatite, amorphous calcium phosphate, and whitlockite. Hydroxyapatite is the most common of the calcium phosphate salts found in human kidney stones. Performed By: #### C ALCULI #### [facility] [address] [place] [address] Dr. Neftali Alexander Result Comment: Calc ulus received wet. Wet calculi must be dried before analysis, which delays reporting of results. Leaving calculi wet (such as water, saline, blood, urine) may lead to changes in composition. Comment: Comment Normal [facility] Comment on above: Result Comment: Tracey mendieta questions regarding Calculi Analysis contact [id number] at: [phone]. Performed By: #### C ALCULI #### [facility] [address] [place] [address] Dr. Neftali Alexander Composition Comment Normal [facility] Comment on above: Result Comment: Perc entage (Represents the % composition) Performed By: #### C ALCULI #### [facility] [address] [place] [address] Dr. Neftali Alexander Cystine [facility] Comment on above: Performed By: #### C ALCULI #### [facility] [address] [place] [address] Dr. Neftali Alexander Disclaimer: Comment [facility] Comment on above: Result Comment: This test was developed and its performance characteristics determined by [facility]. It has not been cleared or approved by the Food and Drug Administration. Performed By: #### C ALCULI #### [facility] [address] [place] [address] Dr. Neftali Alexander Dried Blood [facility] Comment on above: Performed By: #### C ALCULI #### [facility] [address] [address] [address] Neftali Alexander Drug or Metabolite Normal [facility] Comment on above: Performed By: #### C ALCULI #### [facility] [address] [address] [address] Neftali Alexander Hydroxyapatite 40 % Normal [facility] Comment on above: Performed By: #### C ALCULI #### [facility] [address] [address] [address] Neftali Alexandre Mg NH4 PO4 (Struvite) [facility] Comment on above: Performed By: #### C ALCULI #### [facility] [address] [address] [address] Neftali Alexander MgHPO4 (Newberyite) Normal [facility] Comment on above: Performed By: #### C ALCULI #### [facility] [address] [place] [address] Dr. Neftali Alexander Other component(s) Normal [facility] Comment on above: Performed By: #### C ALCULI #### [facility] [address] [address] [address] Neftali Alexander PDF . Normal [facility] Comment on above: Performed By: #### C ALCULI #### [facility] [address] [place] [address] Dr. Neftali Alexander Photo Comment Normal [facility] Comment on above: Result Comment: Phot ograph will follow under a separate cover Performed By: #### C ALCULI #### [facility] [address] [place] [address] Dr. Neftali Alexander Please note: Comment Normal [facility] Comment on above: Result Comment: Calc arturo report will follow via computer, mail or aeronautical engineer delivery. Performed By: #### C ALCULI #### [facility] [address] [address] [address] Neftali Alexander Size 5x3 Normal [facility] Comment on above: Result Comment: Mult iple pieces received. Dimensions of the largest piece reported. Performed By: #### C ALCULI #### [facility] [address] [address] [address] Neftali Alexander Sodium Acid Urate Normal [facility] Comment on above: Performed By: #### C ALCULI #### [facility] [address] [address] [address] Neftali Alexander Source Comment Normal [facility] Comment on above: Result Comment: Left Ureter Performed By: #### C ALCULI #### [facility] [address] [address] [address] Neftali Alexander [employer]amte[employer] [facility] Comment on above: Performed By: #### C ALCULI #### [facility] [address] [address] [address] Neftali Alexander Uric Acid [facility] Comment on above: Performed By: #### C ALCULI #### [facility] [address] [address] [address] Neftali Alexander Uric Acid Dihydrate Normal [facility] Comment on above: Performed By: #### C ALCULI #### [facility] [address] [address] [address] Neftali Alexander Weight 43 mg Normal [facility] Comment on above: Performed By: #### C ALCULI #### [facility] [address] [address] [address] Neftali Alexander Xanthine [facility] Comment on above: Performed By: #### C ALCULI #### [facility] [address] [address] [address] Neftali Alexander XR KUB 1 VIEWon 07-03-2022 XR KUB 1 VIEW EXAMINATION: XR KUB 1 VIEW HISTORY: Urolithiasis COMPARISON: XR KUB 02/29/2020 FINDINGS: KIDNEY/URETER - RIGHT: No visible renal or ureteral calcifications. KIDNEY/URETER - LEFT: 12 mm round hyperdensity projecting over left kidney; fragment stone versus bowel content artifact. Questionable 5 x 4 mm stone within left renal pelvis versus additional overlying artifact. Left ureteral stent. Good position. PELVIS: No appreciable ureteral stone. Stable pelvic calcifications compatible with phleboliths. BOWEL: No abnormal dilation or deviation. BONES: No acute abnormality. OTHER: Negative. No abnormal gaseous collections. IMPRESSION: 1. Left ureteral stent appearing in expected position. 2. Suspected stone within left renal pelvis and likely large stone within inferior pole of left kidney. Bowel content artifact could also account for these findings. Electronically authenticated by: AIME AADMS Date: 2022-07-03 11:48 Normal [facility]on SARS-CoV-2 (COVID-19) RNA CHRISTOPHER+probe Ql (Unsp spec) Not detected Normal NOT DETECTED [facility] Comment on above: Result Comment: This test is not yet approved or cleared by the [place] FDA. When there are no FDA-approved or cleared tests available, and other criteria are met, FDA can make tests available under an emergency access mechanism called an Emergency Use Authorization (EUA). The EUA for this test is supported by the [place] of Health and Human Service's (HHS's) declaration that circumstances exist to justify the emergency use of in vitro diagnostics for the detection and/or diagnosis of the virus that causes COVID-19. This EUA will remain in effect (meaning this test can be used) for the duration of the COVID-19 declaration justifying emergency of IVDs, unless it is terminated or revoked by FDA (after which the test may no longer be used). When diagnostic testing is negative, the possibility of a false negative should be considered in the context of a patient's recent exposures and the presence of clinical signs and symptoms consistent with SARS-CoV-2. Performed By: #### C VDTBH #### [facility] [address] [place] [address] Dr. Neftali Alexander PROTIMEon 06-26-2022 INR Coag (PPP) [Relative time] 1.02 {INR} Normal [facility] Comment on above: Performed By: #### P T, PTT #### [facility] [address] [place] [address] Dr. Neftali Alexander INR GUIDELINES SEE BELOW Normal [facility] Comment on above: Result Comment: YRN RED INR: 2.0 - 3.0 CONDITIONS NOT LISTED BELOW 2.5 - 3.5 FOR PROSTHETIC HEART VALVE REPLACEMENT 2.5 - 3.5 RECURRENT THROMBOSIS Performed By: #### P T, PTT #### [facility] [address], [place] [address] Dr. Neftali Alexander PT Coag (PPP) [Time] 11.0 s Normal 9.0-11.6 [facility] Comment on above: Performed By: #### P T, PTT #### [facility] [address], [place] [address] Dr. Neftali Alexander PTTon 06-26-2022 aPTT Coag (Bld) [Time] 28.8 s Normal 22.3-36.2 [facility] Comment on above: Performed By: #### P T, PTT #### [facility] [address], [place] [address] Dr. Neftali Alexander CHEMISTRYOrdered By: SYSTEM SYSTEM on 2022 Anion gap [Moles/Vol] 5 mmol/L Low 6 - 16 mEq/L [facility] Remisol Calcium [Mass/Vol] 7.7 mg/dL Low 8.9 - 11. 1 mg/dL [facility] Remisol Chloride [Moles/Vol] 109 mmol/L Normal 101 - 1 11 mmol/L [facility] Remisol CO2 [Moles/Vol] 23 mmol/L Normal 21 - 31 mmol/L [facility] Remisol Creatinine [Mass/Vol] 0.8 mg/dL Normal 0.5 - 1.3 mg/dL [facility] Remisol GFR/1.73 sq M.predicted among blacks MDRD (S/P/Bld) [Vol rate/Area] mL/min/1.73 m2 Normal >=59mL/min/1 .73 m2 [facility] Chem S GFR/1.73 sq M.predicted among non-blacks MDRD (S/P/Bld) [Vol rate/Area] mL/min/1.73 m2 Normal >=59mL/min/1 .73 m2 [facility] Chem S Glucose [Mass/Vol] 108 mg/dL Normal 55 - 199 mg/dL [facility] Remisol Potassium [Moles/Vol] 3.2 mmol/L Low 3.5 - 5.3 mmol/L [facility] Remisol Sodium [Moles/Vol] 134 mmol/L Low 135 - 145 mmol/L [facility] Remisol Urea nitrogen [Mass/Vol] 11 mg/dL Normal 5 - 21 mg/d L [facility] Remisol Urea nitrogen/Creatinine [Mass ratio] 14 mg/mg Normal 10 - 20 [facility] Remisol HEMATOLOGYOrdered By: SYSTEM SYSTEM on 2022 Basophils/100 WBC (Bld) 0.3 % Normal 0.0 - 2.0 % [facility] Basophils/Leukocytes Auto (Bld) [Pure # fraction] 0.0 E9/L Normal 0.0 - 0.2 E9/L [facility] Eosinophils/100 WBC (Bld) 0.4 % Normal 0.0 - 8.0 % [facility] Eosinophils/Leukocytes Auto (Bld) [Pure # fraction] 0.1 E9/L Normal 0.0 - 0.5 E9/L [facility] Lymphocytes/100 WBC (Bld) 3.2 % Low 14.0 - 50.0 % [facility] Lymphocytes/Leukocytes Auto (Bld) [Pure # fraction] 0.5 E9/L Low 1.0 - 4.0 E9/L [facility] Monocytes/100 WBC (Bld) 7.3 % Normal 4.0 - 14.0 % [facility] Monocytes/Leukocytes Auto (Bld) [Pure # fraction] 1.1 E9/L High 0.2 - 1.0 E9/L [facility] Neutrophils/100 WBC (Bld) 88.8 % High 36.0 - 75.0 % [facility] Neutrophils/Leukocytes Auto (Bld) [Pure # fraction] 13.5 E9/L High 2.0 - 7.5 E9/L [facility] HEMATOLOGYOrdered By: Luz Rae on 2022 Erythrocyte distribution width (RBC) [Ratio] 12.9 % Normal 10.9 - 14.2 % [facility] Hematocrit (Bld) [Volume fraction] 33.5 % Low 34.0 - 46.0 % [facility] Hemoglobin (Bld) [Mass/Vol] 11.3 g/dL Low 12.0 - 16.0 gm/dL [facility] MCH (RBC) [Entitic mass] 29.4 pg Normal 27. 0 - 34.0 pg [facility] MCHC (RBC) [Mass/Vol] 33.6 g/dL Normal 31.4 - 36.0 gm/dL [facility] HemeAuto[facility] MCV (RBC) [Entitic vol] 87.6 fL Normal 80.0 - 100.0 fL [facility] Platelet mean volume (Bld) [Entitic vol] 9.0 fL Normal 6.4 - 10.8 fL [facility] Platelets (Bld) [#/Vol] 147.0 E9/L Low 150. 0 - 500.0 E9/L [facility] RBC (Bld) [#/Vol] 3.8 E12/L Low 4.3 - 5.9 E12/L [facility] WBC corrected for nucl RBC Auto (Bld) [#/Vol] 15.2 E9/L High 4.0 - 11.0 E9/L [facility] CHEMISTRYOrdered By: SYSTEM SYSTEM on 06-06-2022 Anion gap [Moles/Vol] 11 mmol/L Normal 6 - 16 mEq/L [facility] Remisol Calcium [Mass/Vol] 8.4 mg/dL Low 8.9 - 11. 1 mg/dL [facility] Chloride [Moles/Vol] 101 mmol/L Normal 101 - 1 11 mmol/L [facility] CO2 [Moles/Vol] 25 mmol/L Normal 21 - 31 mmol/L [facility] Creatinine [Mass/Vol] 1.1 mg/dL Normal 0.5 - 1.3 mg/dL [facility] GFR/1.73 sq M.predicted among blacks MDRD (S/P/Bld) [Vol rate/Area] mL/min/1.73 m2 Normal >=59mL/min/1 .73 m2 [facility] Chem S GFR/1.73 sq M.predicted among non-blacks MDRD (S/P/Bld) [Vol rate/Area] 55 mL/min/1.73 m2 Low >=59mL/min/1 .73 m2 [facility] Chem S Glucose [Mass/Vol] 111 mg/dL Normal 55 - 199 mg/dL [facility] Lactate [Mass/Vol] 1.0 mmol/L Normal 0.5 - 2.2 mmol/L [facility] Potassium [Moles/Vol] 3.7 mmol/L Normal 3.5 - 5.3 mmol/L [facility] Sodium [Moles/Vol] 133 mmol/L Low 135 - 145 mmol/L [facility] TSH Qn 2.19 m[IU]/L Normal 0.34 - 5.60 mcIU/mL [facility] Urea nitrogen [Mass/Vol] 16 mg/dL Normal 5 - 21 mg/d L [facility] Remisol Urea nitrogen/Creatinine [Mass ratio] 14 mg/mg Normal 10 - 20 [facility] Remisol HEMATOLOGYOrdered By: Georgie miles on 06-06-2022 Band form neutrophils/100 WBC (Bld) 10 % Normal 0 - 10 % [facility] Basophils/100 WBC (Bld) 0 % Normal 0 - 2 % F [facility] Basophils/Leukocytes Manual cnt (Bld) [Pure # fraction] 0.0 E9/L Normal 0.0 - 0.2 E9/L [facility] Eosinophils/100 WBC (Bld) 0 % Normal 0 - 8 % [facility] Eosinophils/Leukocytes Manual cnt (Bld) [Pure # fraction] 0.0 E9/L Normal 0.0 - 0.5 E9/L [facility] Erythrocyte distribution width (RBC) [Ratio] 12.7 % Normal 10.9 - 14.2 % [facility] Hematocrit (Bld) [Volume fraction] 37.6 % Normal 34.0 - 46.0 % [facility] Hemoglobin (Bld) [Mass/Vol] 12.6 g/dL Normal 12.0 - 16.0 gm/dL [facility] Lymphocytes/100 WBC (Bld) 4 % Low 14 - 50 % [facility] Lymphocytes/Leukocytes Manual cnt (Bld) [Pure # fraction] 1.6 E9/L Normal 1.0 - 4.0 E9/L [facility] MCH (RBC) [Entitic mass] 29.2 pg Normal 27. 0 - 34.0 pg [facility] MCHC (RBC) [Mass/Vol] 33.6 g/dL Normal 31.4 - 36.0 gm/dL [facility] MCV (RBC) [Entitic vol] 87.1 fL Normal 80.0 - 100.0 fL [facility] Monocytes/100 WBC (Bld) 2 % Low 4 - 14 % F [facility] Monocytes/Leukocytes Manual cnt (Bld) [Pure # fraction] 0.6 E9/L Normal 0.2 - 1.0 E9/L [facility] Morphology Jean Paul (Bld) [Interp] Normal (06/06/22 6:40 AM) Normal [facility] Neutrophils/Leukocytes Auto (Bld) [Pure # fraction] 29.6 E9/L High 2.0 - 7.5 E9/L [facility] Platelet mean volume (Bld) [Entitic vol] 9.0 fL Normal 6.4 - 10.8 fL [facility] Platelets (Bld) [#/Vol] 208.0 E9/L Normal 150. 0 - 500.0 E9/L [facility] RBC (Bld) [#/Vol] 4.3 E12/L Normal 4.3 - 5.9 E12/L [facility] Segmented neutrophils/100 WBC (Bld) 83 % High 36 - 75 % [facility] Variant lymphocytes LM Ql (Bld) 1 % Invalid Interpretation Code [facility] WBC corrected for nucl RBC Auto (Bld) [#/Vol] 31.8 E9/L Invalid Interpretation Code 4.0 - 11.0 E9/L [facility] Comment on above: Result Comment: Resu lts Called To Vanessa Baker/Ifeanyi By ESTRELLA And Read Back For Confirmation On 06/06/2022 07:53:39 EDT Results Verified By Repeat Analysis MICRO OTHER TESTSOrdered By: Brittany Pereira on 06-06-2022 Rapid COV Int NEG Ctl Pass (06/06/22 12:13 AM) Normal [facility] Man Sero Rapid COV Int POS Ctl Pass (06/06/22 12:13 AM) Normal [facility] Man Sero SARS-CoV+SARS-CoV-2 (COVID-19) Ag IA.rapid Ql (Resp) Not Detected (06/06/22 12:13 AM) Normal Not Detected [facility] Man Sero CHEMISTRYOrdered By: Brittany Pereira on 06-05-2022 Lactate [Mass/Vol] 0.8 mmol/L Normal 0.5 - 2.2 mmol/L [facility] Remisol CHEMISTRYOrdered By: SYSTEM SYSTEM on 06-05-2022 Albumin [Mass/Vol] 4.4 g/dL Normal 3.3 - 5.0 gm/dL [facility] Albumin/Globulin [Mass ratio] 1.2 {ratio} Normal 1.1 - 2.2 [facility] ALP [Catalytic activity/Vol] 66 [iU]/d Normal 21 - 98 Int._Unit/L [facility] ALT No additional P-5'-P [Catalytic activity/Vol] 14 [iU]/d Normal 6 - 46 Int._Unit/L [facility] Anion gap [Moles/Vol] 14 mmol/L Normal 6 - 16 mEq/L F [facility] AST [Catalytic activity/Vol] 21 [iU]/d Normal 5 - 43 Int._Unit/L [facility] Bilirubin [Mass/Vol] 1.5 mg/dL High 0.0 - 1 .1 mg/dL [facility] Bilirubin.direct [Mass/Vol] 0.3 mg/dL Normal 0.1 - 0.4 mg/dL [facility] Bilirubin.indirect [Mass or moles/Vol] 1.2 mg/dL High 0.1 - 0.9 mg/dL [facility] Calcium [Mass/Vol] 9.5 mg/dL Normal 8.9 - 11. 1 mg/dL [facility] Chloride [Moles/Vol] 96 mmol/L Low 101 - 1 11 mmol/L [facility] CO2 [Moles/Vol] 24 mmol/L Normal 21 - 31 mmol/L [facility] Creatinine [Mass/Vol] 1.3 mg/dL Normal 0.5 - 1.3 mg/dL [facility] GFR/1.73 sq M.predicted among blacks MDRD (S/P/Bld) [Vol rate/Area] 55 mL/min/1.73 m2 Low >=59mL/min/1 .73 m2 [facility] Chem S GFR/1.73 sq M.predicted among non-blacks MDRD (S/P/Bld) [Vol rate/Area] 45 mL/min/1.73 m2 Low >=59mL/min/1 .73 m2 [facility] Chem S Globulin (S) [Mass/Vol] 3.6 g/dL Normal 1.4 - 4.0 gm/dL [facility] Glucose [Mass/Vol] 90 mg/dL Normal 55 - 199 mg/dL [facility] Lipase [Catalytic activity/Vol] 30 U/L Normal 13 - 58 unit/L [facility] Potassium [Moles/Vol] 3.8 mmol/L Normal 3.5 - 5.3 mmol/L [facility] Protein [Mass/Vol] 8.0 g/dL High 6.0 - 7.8 gm/dL [facility] Sodium [Moles/Vol] 130 mmol/L Low 135 - 145 mmol/L [facility] Urea nitrogen [Mass/Vol] 16 mg/dL Normal 5 - 21 mg/d L [facility] Urea nitrogen/Creatinine [Mass ratio] 12 mg/mg Normal 10 - 20 [facility] Rem[facility] HEMATOLOGYOrdered By: Dalia Serra on 06-05-2022 Band form neutrophils/100 WBC (Bld) 6 % Normal 0 - 10 % [facility] Basophils/100 WBC (Bld) 0 % Normal 0 - 2 % F [facility] Basophils/Leukocytes Manual cnt (Bld) [Pure # fraction] 0.0 E9/L Normal 0.0 - 0.2 E9/L [facility] Eosinophils/100 WBC (Bld) 0 % Normal 0 - 8 % [facility] Eosinophils/Leukocytes Manual cnt (Bld) [Pure # fraction] 0.0 E9/L Normal 0.0 - 0.5 E9/L [facility] Erythrocyte distribution width (RBC) [Ratio] 12.5 % Normal 10.9 - 14.2 % [facility] Hematocrit (Bld) [Volume fraction] 41.0 % Normal 34.0 - 46.0 % [facility] Hemoglobin (Bld) [Mass/Vol] 14.0 g/dL Normal 12.0 - 16.0 gm/dL [facility] Lymphocytes/100 WBC (Bld) 3 % Low 14 - 50 % [facility] Lymphocytes/Leukocytes Manual cnt (Bld) [Pure # fraction] 0.9 E9/L Low 1.0 - 4.0 E9/L [facility] MCH (RBC) [Entitic mass] 29.4 pg Normal 27. 0 - 34.0 pg [facility] MCHC (RBC) [Mass/Vol] 34.1 g/dL Normal 31.4 - 36.0 gm/dL [facility] MCV (RBC) [Entitic vol] 86.1 fL Normal 80.0 - 100.0 fL [facility] Monocytes/100 WBC (Bld) 5 % Normal 4 - 14 % F [facility] Monocytes/Leukocytes Manual cnt (Bld) [Pure # fraction] 1.6 E9/L High 0.2 - 1.0 E9/L [facility] Morphology [place] (Bld) [Interp] Normal (06/05/22 8:23 PM) Normal [facility] Neutrophils/Leukocytes Auto (Bld) [Pure # fraction] 29.1 E9/L High 2.0 - 7.5 E9/L [facility] Platelet mean volume (Bld) [Entitic vol] 9.0 fL Normal 6.4 - 10.8 fL [facility] Platelets (Bld) [#/Vol] 258.0 E9/L Normal 150. 0 - 500.0 E9/L [facility] RBC (Bld) [#/Vol] 4.8 E12/L Normal 4.3 - 5.9 E12/L [facility] Segmented neutrophils/100 WBC (Bld) 86 % High 36 - 75 % [facility] Variant lymphocytes LM Ql (Bld) 0 % Invalid Interpretation Code [facility] WBC corrected for nucl RBC Auto (Bld) [#/Vol] 31.6 E9/L Invalid Interpretation Code 4.0 - 11.0 E9/L [facility] Comment on above: Result Comment: Resu lts Called To Bartolo Dorado RN/ER By BRIAN And Read Back For Confirmation On 06/05/2022 20:50:12 EDT Results Verified By Repeat Analysis HEMATOLOGYOrdered By: Neftali Alexander on 06-05-2022 Path Review Granulocytic leukocytosis with left shift and reactive monocytes, consistent with infectious or reactive process. No increase of basophils or eosinophils.D72.829 CPT 34134 Invalid Interpretation Code [facility] No Panel InformationOrdered By: JACOBOPROCESSSERVER MICROBIOLOGY on 06-05-2022 Blood Culture Charcoal No growth at 1 da y. Final to follow at 7 days. [facility] Blood Culture Charcoal No growth at 1 da y. Final to follow at 7 days. [facility] TRIMETHOPRIM+SULFAMETHOXAZOL E:SUSC:PT:ISOLATE:ORDQN:MICOrdered By: Arline Avery on 06-05-2022 Trimethoprim+Sulfamethox azole KALYAN [Susc] >100,000 cfu/ml Escherichia coli [facility] Trimethoprim+Sulfamethoxazol e KALYAN [Susc]Ordered By: Arline Avery on 06-05-2022 Escherichia coli Escherichia coli [facility] URINALYSISOrdered By: Gladis Christian on 06-05-2022 Bacteria LM Ql (Urine sed) 2+ /HPF Invalid Interpretation Code Trace/HPF [facility] Auto [facility] Bilirubin Ql (U) Negative (06/05/22 8:23 PM) Normal Negative [facility]A Auto SS Clarity (U) Cloudy *ABN* (06/05/22 8:23 PM) Invalid Interpretation Code Clear [facility] Auto [facility] Color (U) DARK YELLO Invalid Interpretation Code [facility]A Auto SS Epithelial cells.squamous LM.HPF (Urine sed) [#/Area] 0-2 /HPF Normal 0-2/HPF [facility] UA Aut o SS Glucose Test strip (U) [Mass/Vol] Negative (06/05/22 8:23 PM) Normal Negative [facility]A Auto SS Hemoglobin Ql (U) 3+ *ABN* (06/05/22 8:23 PM) Invalid Interpretation Code Negative [facility] Auto SS Ketones (U) [Mass/Vol] Trace *NA* (06/05/22 8:23 PM) Invalid Interpretation Code Negative [facility] UA Auto SS [place].plasma/[place].R BC (Bld) [Mass ratio] 4-20 /HPF Normal 0-3/HPF [facility] UA Au to SS Nitrite Ql (U) Positive *ABN* (06/05/22 8:23 PM) Invalid Interpretation Code Negative [facility]A Auto SS pH (U) 6.0 *NA* (06/05/22 8:23 PM) Invalid Interpretation Code 5.0 - 9.0 [facility]A Auto SS Protein (U) [Mass/Vol] 2+ *ABN* (06/05/22 8:23 PM) Invalid Interpretation Code Negative [facility] UA Auto SS Specific gravity (U) [Rel density] 1.025 *NA* (06/05/22 8:23 PM) Invalid Interpretation Code 1.005 - 1.030 [facility]A Auto SS UA Spec Desc Clean Catch (06/05/22 8:23 PM) Normal [facility] UA Auto SS Urobilinogen Qn (U) [id number] {Jane'U}/dL Normal 0.0 - 1.0 EU/dL [facility] UA Auto SS WBC Auto Ql (U) 2+ *ABN* (06/05/22 8:23 PM) Invalid Interpretation Code Negative [facility] UA Auto SS WBC LM.HPF (Urine sed) [#/Area] /[HPF] Invalid Interpretation Code 0-5/HPF [facility] UA Auto SS Vital Signs Date Time Vital Sign Value Performing Clinician Facility 07-23-2023 14:47-0500 Hourly Rounding [facility] 07-23-2023 14:47-0500 Promise to Return [facility] 07-23-2023 13:47-0500 Hourly Rounding [facility] 07-23-2023 13:47-0500 Promise to Return [facility] 07-23-2023 12:54-0500 Hourly Rounding [facility] 07-23-2023 12:54-0500 Promise to Return [facility] 07-23-2023 10:24-0500 Heart rate 88 /min [facility] 07-23-2023 10:24-0500 SaO2% (BldA) [Mass fraction] 99 % [facility] 07-23-2023 10:24-0500 Diastolic blood pressure 79 mm[Hg] [facility] 07-23-2023 10:24-0500 Mean blood pressure 91 mm[Hg] [facility] 07-23-2023 10:24-0500 Systolic blood pressure 117 mm[Hg] [facility] 07-23-2023 10:24-0500 Body temperature 97.88 [degF] [facility] 07-23-2023 08:35-0500 Blood Pressure Location [facility] 07-23-2023 08:35-0500 Body temperature 98.78 [degF] [facility] 07-23-2023 08:35-0500 Diastolic blood pressure 70 mm[Hg] [facility] 07-23-2023 08:35-0500 Heart rate 100 /min [facility] 07-23-2023 08:35-0500 Mean blood pressure 85 mm[Hg] [facility] 07-23-2023 08:35-0500 Respiratory rate 11 /min [facility] 07-23-2023 08:35-0500 SaO2% (BldA) [Mass fraction] 97 % [facility] 07-23-2023 08:35-0500 Systolic blood pressure 114 mm[Hg] [facility] 07-23-2023 08:20-0500 Blood Pressure Location [facility] 07-23-2023 08:20-0500 Diastolic blood pressure 70 mm[Hg] [facility] 07-23-2023 08:20-0500 Heart rate 103 /min [facility] 07-23-2023 08:20-0500 Mean blood pressure 84 mm[Hg] [facility] 07-23-2023 08:20-0500 Respiratory rate 19 /min [facility] 07-23-2023 08:20-0500 SaO2% (BldA) [Mass fraction] 99 % [facility] 07-23-2023 08:20-0500 Systolic blood pressure 111 mm[Hg] [facility] 07-23-2023 08:15-0500 Blood Pressure Location [facility] 07-23-2023 08:15-0500 Mean blood pressure 82 mm[Hg] [facility] 08:15-0500 Respiratory rate 16 /min [facility] 07-23-2023 08:04-0500 Body temperature 99.14 [degF] [facility] 07-23-2023 08:00-0500 Respiratory rate 14 /min [facility] 07-23-2023 07:55-0500 Respiratory rate 10 /min [facility] 07-23-2023 07:50-0500 Respiratory rate 10 /min [facility] 07-23-2023 04:25-0500 Body temperature 98.6 [degF] [facility] 07-22-2023 23:42-0500 Mean blood pressure 86 mm[Hg] [facility] 07-22-2023 23:00-0500 Body temperature 98.78 [degF] [facility] 07-22-2023 20:36-0500 Mean blood pressure 83 mm[Hg] [facility] 07-22-2023 20:00-0500 Body temperature 98.6 [degF] [facility] 07-21-2023 22:18-0500 Heart rate 110 /min [facility] 07-21-2023 17:06-0500 Heart rate 116 /min [facility] 05-12-2023 09:44-0400 Body weight 52.62 kg Clifford Pedroza MD Work Phone: [facility] 05-12-2023 09:44-0400 Diastolic blood pressure 62 mm[Hg] Clifford Pedroza MD Work Phone: [facility] 05-12-2023 09:44-0400 Heart rate 88 /min Clifford Pedroza MD Work Phone: [facility] 05-12-2023 09:44-0400 Respiratory rate 16 /min Clifford Pedroza MD Work Phone: [facility] 05-12-2023 09:44-0400 Systolic blood pressure 102 mm[Hg] Clifford Pedroza MD Work Phone: [facility] 07-17-2022 13:40-0500 Hourly Rounding Wu JAMIL [facility] 07-17-2022 13:40-0500 Promise to Return Wu JAMIL [facility] 07-17-2022 12:12-0500 Hourly Rounding Wu JAMIL [facility] 07-17-2022 12:12-0500 Promise to Return Wu JAMIL [facility] 07-17-2022 11:04-0500 Body temperature 98.24 [degF] Wu JAMIL [facility] 07-17-2022 11:04-0500 Diastolic blood pressure 74 mm[Hg] Wu JAMIL [facility] 07-17-2022 11:04-0500 Heart rate 100 /min Wu JAMIL [facility] 07-17-2022 11:04-0500 Mean blood pressure 88 mm[Hg] Wu JAMIL [facility] 07-17-2022 11:04-0500 Respiratory rate 18 /min Wu JAMIL [facility] 07-17-2022 11:04-0500 SaO2% (BldA) [Mass fraction] 100 % Wu JAMIL [facility] 07-17-2022 11:04-0500 Systolic blood pressure 115 mm[Hg] Wu JAMIL [facility] 07-17-2022 11:00-0500 Hourly Rounding Wu MULLINSLIN [facility] 07-17-2022 11:00-0500 Promise to Return Wu NEGRON [facility] 07-17-2022 09:50-0500 Diastolic blood pressure 70 mm[Hg] Wutroy FONSECASLIN [facility] 07-17-2022 09:50-0500 Systolic blood pressure 107 mm[Hg] Wutroy FONSECASLIN [facility] 07-17-2022 08:07-0500 Blood Pressure Location Wu MULLINSLIN [facility] 07-17-2022 08:07-0500 Body temperature 97.7 [degF] Wu NEGRON [facility] 07-17-2022 08:07-0500 Diastolic blood pressure 70 mm[Hg] Wutroy FONSECASLIN [facility] 07-17-2022 08:07-0500 Heart rate 85 /min Wu FONSECASLIN [facility] 07-17-2022 08:07-0500 Mean blood pressure 82 mm[Hg] Wutroy FONSECASLIN [facility] 07-17-2022 08:07-0500 Respiratory rate 18 /min Wutroy FONSECASLIN [facility] 07-17-2022 08:07-0500 SaO2% (BldA) [Mass fraction] 98 % Wu FONSECASLIN [facility] 07-17-2022 08:07-0500 Systolic blood pressure 107 mm[Hg] Wutroy FONSECASLIN [facility] 07-17-2022 07:59-0500 SaO2% (BldA) [Mass fraction] 98 % Wutroy FONSECASLIN [facility] 07-17-2022 04:15-0500 Blood Pressure Location Wutroy FONSECASLIN [facility] 07-17-2022 04:15-0500 Body temperature 97.88 [degF] Wutroy FONSECASLIN [facility] 07-17-2022 04:15-0500 Heart rate 83 /min Wu JAMIL [facility] 07-17-2022 04:15-0500 Respiratory rate 16 /min Wu JAMIL [facility] 07-17-2022 00:25-0500 Blood Pressure Location Wutroy FONSECASLIN [facility] 07-17-2022 00:25-0500 Heart rate 83 /min Wu JAMIL [facility] 07-17-2022 00:03-0500 Heart rate 90 /min Wu JAMIL [facility] 07-17-2022 00:03-0500 Mean blood pressure 89 mm[Hg] Wu JAMIL [facility] 07-16-2022 23:46-0500 Mean blood pressure 80 mm[Hg] Wu JAMIL [facility] 07-16-2022 21:51-0500 Respiratory rate 22 /min Wu JAMIL [facility] 07-16-2022 20:00-0500 Respiratory rate 20 /min Wu JAMIL [facility] 11-22-2022 19:54-0500 Respiratory rate 23 /min Wu JAMIL [facility] 06-14-2022 10:10-0400 Blood Pressure Location Vero Lue [facility] 06-14-2022 10:10-0400 Diastolic blood pressure 79 mm[Hg] Vero Lue [facility] 06-14-2022 10:10-0400 Heart rate 88 /min Vero Lue [facility] 06-14-2022 10:10-0400 Systolic blood pressure 121 mm[Hg] Vero Lue [facility] 2022 13:00-0400 Hourly Rounding Wu JAMIL [facility] 2022 13:00-0400 Promise to Return Wu JAMIL [facility] 2022 12:00-0400 Hourly Rounding Wu JAMIL [facility] 2022 12:00-0400 Promise to Return Wu JAMIL [facility] 2022 11:50-0400 Blood Pressure Location Wu JAMIL [facility] 2022 11:50-0400 Body temperature 97.88 [degF] Wu JAMIL [facility] 2022 11:50-0400 BP/Pulse Patient Position Wu JAMIL [facility] 2022 11:50-0400 Diastolic blood pressure 75 mm[Hg] Wu JAMIL [facility] 2022 11:50-0400 Heart rate 98 /min Wutroy FONSECASLIN [facility] 2022 11:50-0400 Hourly Rounding Wu FONSECASLIN [facility] 2022 11:50-0400 Mean blood pressure 87 mm[Hg] Wutroy FONSCEASLIN [facility] 2022 11:50-0400 Respiratory rate 19 /min Wutroy FONSECASLIN [facility] 2022 11:50-0400 SaO2% (BldA) [Mass fraction] 100 % Wu FONSECASLIN [facility] 2022 11:50-0400 Systolic blood pressure 112 mm[Hg] Wutroy FONSECASLIN [facility] 2022 11:00-0400 Promise to Return Wutroy MULLINSLIN [facility] 2022 07:59-0400 Blood Pressure Location Wu FONSECASLIN [facility] 2022 07:59-0400 Body temperature 98.6 [degF] Wutroy FONSECASLIN [facility] 2022 07:59-0400 BP/Pulse Patient Position Wutroy FONSECASLIN [facility] 2022 07:59-0400 Diastolic blood pressure 63 mm[Hg] Wu JAMIL [facility] 2022 07:59-0400 Heart rate 116 /min Wutroy FONSECASLIN [facility] 2022 07:59-0400 Mean blood pressure 78 mm[Hg] Wutroy FONSECASLIN [facility] 2022 07:59-0400 Respiratory rate 18 /min Wutroy FONSECASLIN [facility] 2022 07:59-0400 SaO2% (BldA) [Mass fraction] 99 % Wutroy FONSECASLIN [facility] 2022 07:59-0400 Systolic blood pressure 108 mm[Hg] Wutroy FONSECASLIN [facility] 2022 00:20-0400 Blood Pressure Location Wutroy FONSECASLIN [facility] 2022 00:20-0400 Body temperature 98.42 [degF] Wutroy FONSECASLIN [facility] 2022 00:20-0400 BP/Pulse Patient Position Wutroy FONSECASLIN [facility] 2022 00:20-0400 Diastolic blood pressure 78 mm[Hg] Wutroy FONSECASLIN [facility] 2022 00:20-0400 Heart rate 116 /min Wutroy FONSECASLIN [facility] 2022 00:20-0400 Mean blood pressure 90 mm[Hg] Wu JAMIL [facility] 2022 00:20-0400 Respiratory rate 15 /min Wutroy FONSECASLIN [facility] 2022 00:20-0400 SaO2% (BldA) [Mass fraction] 99 % Wutroy FONSECASLIN [facility] 2022 00:20-0400 Systolic blood pressure 115 mm[Hg] Wu JAMIL [facility] 06-06-2022 21:03-0400 Mean blood pressure 83 mm[Hg] Wu JAMIL [facility] 06-06-2022 16:04-0400 Mean blood pressure 93 mm[Hg] Wu JAMIL [facility] 06-06-2022 02:04-0400 Body temperature 99.14 [degF] Wu AJMIL [facility] 06-06-2022 02:04-0400 Mean blood pressure 80 mm[Hg] Wu JAMIL [facility] 06-06-2022 02:04-0400 Respiratory rate 16 /min Wu JAMIL [facility] 06-06-2022 01:55-0400 Respiratory rate 14 /min Wu JAMIL [facility] 06-06-2022 01:50-0400 Respiratory rate 13 /min Wu JAMIL [facility] 06-06-2022 01:39-0400 Body temperature 98.6 [degF] Wu JAMIL [facility] 06-06-2022 00:19-0400 Heart rate 127 /min Wu JAMIL [facility] 06-05-2022 19:39-0400 Heart rate 121 /min Wu JAMIL [facility] Encounters Encounter Date Encounter Type Care Provider Facility Start: 08-21-2023 ambulatory Wu Parmar ty:[id number] Start: 07-21-2023 End: 07-23-2023 Evaluation and management of inpatient Vasile Sahni Facility:[facility] Start: 07-21-2023 End: 07-23-2023 Evaluation and management of inpatient Venessa Vasquez [facility] Start: 05-12-2023 End: 05-12-2023 ambulatory CLIFFORD PEDROZA Facility:[facility] Start: 05-12-2023 End: 05-12-2023 ambulatory CLIFFORD PEDROZA Facility:[facility] Start: 05-12-2023 End: 05-12-2023 Patient encounter procedure Clifford Pedroza MD Work Phone: [facility] Comment on above: Kidney stone (Primar y Dx) Start: 05-06-2023 End: 05-07-2023 ambulatory Kaitlyn Beasley Facility:[facility] Start: 05-06-2023 End: 05-06-2023 Patient encounter procedure Kaitlyn Beasley III [facility] Start: 04-17-2023 End: 04-18-2023 ambulatory Kaitlyn Beasley Facility:[facility] Start: 04-17-2023 End: 04-17-2023 Patient encounter procedure Kaitlyn Beasley III [facility] Start: 01-23-2023 End: 01-24-2023 ambulatory Kaylie RUDD Facility:[facility] Start: 01-23-2023 End: 01-23-2023 Patient encounter procedure Kaylie VAUGHNAM [facility] Start: 11-25-2022 End: 11-26-[address] TIFF MORLEY Facility:[facility] Start: 11-19-2022 End: 11-20-2022 ambulatory Walter COLBY Facility:[facility] Start: 11-19-2022 End: 11-19-2022 Patient encounter procedure Walter COLBY [facility] Start: 11-18-2022 End: 11-19-2022 ambulatory Walter COLBY Facility:[facility] Start: 11-18-2022 End: 11-18-2022 Patient encounter procedure Walter COLBY [facility] Start: 11-13-2022 End: 11-13-2022 ambulatory LE TROY . Facility: Start: 09-18-2022 ambulatory Walter COLBY Facility :[facility] Start: 07-22-2022 End: 07-22-2022 Patient encounter procedure Vero Salcedo [facility] Start: 07-20-2022 End: 07-20-2022 Emergency department patient visit ROSA ERLINDA [facility] Start: 07-16-2022 End: 07-17-2022 Evaluation and management of inpatient Wu NEGRON [facility] Start: 07-03-2022 End: 07-03-[address] RIDDHI GRUBER Facility: Start: 06-29-[address] TIFF MORLEY [facility] ity: Start: 06-28-2022 Encounter for preprocedural cardiovascular examination VERO SALCEDO . [facility] Start: 06-28-2022 Encounter for preprocedural laboratory examination VERO SALCEDO . [facility] Start: 06-26-2022 End: 06-27-2022 ambulatory VERO SALCEDO . Facility:[facility] Start: 06-26-2022 End: 06-27-2022 Encounter for preprocedural cardiovascular examination VERO SALCEDO . Facility: Start: 06-14-2022 End: 06-14-2022 Lab Drop off Vero Salcedo [facility] Start: 06-14-2022 End: 06-14-2022 Patient encounter procedure Vero Salcedo [facility] Start: 06-05-2022 End: 2022 Evaluation and management of inpatient Wu NEGRON [facility] Start: 06-04-2022 End: 06-04-2022 Patient encounter procedure Walter COLBY [facility] Start: 02-22-2022 End: 02-22-2022 Patient encounter procedure Lott TOBIN [facility] Start: 12-03-2021 End: 12-03-2021 Patient encounter procedure Walter COLBY [facility] Start: 11-21-2021 End: 11-21-2021 Patient encounter procedure Walter COLBY [facility] [place] Procedures Date Procedure Procedure Detail Performing Clinician Start: 07-23-2023 Transurethral cystoscopy Venessa Vasquez Start: 07-22-2022 Cystoscopic removal of ureteric stent Walter COLBY Start: 05-03-2022 Cystoscopy Walter [place] Start: 04-04-2021 Cystoscopy Walter [place] Start: 03-15-2021 Extracorporeal shock wave lithotripsy of calculus of kidney Walter COLBY Start: 02-14-2021 Cystoscopy Walter [place] Start: 05-26-2019 Cystoscopy Walter [place] Comment on above: CYSTOSCOPY; RIGHT RE TROGRADE; RIGHT HOMIUM LASER; RIGHT STENT REMOVED; RIGHT STENT REPLACED Start: 10-25-2016 Extracorporeal shock wave lithotripsy of calculus of kidney Walter COLBY Comment on above: left Start: 03-01-2016 Left extracorporeal shockwave lithotripsy x7 Walter COLBY Cerclage Walter COLBY section Walter Neri Cystoscopy Walter COLBY Diagnostic laparoscopy Vicente COLBY Dilation and curetta ge of uterus Walter COLBY History of tonsillectomy Delaney COLBY Hysterectomy Walter COLBY Plan of Treatment Date Care Activity Detail Author Start: 04-25-2023 Influenza vaccination Influenza Vacc ine (#1) [facility] Start: 08-25-2022 Depression Assessment Depression Ass essment [facility] Start: 2020 Mammography Mammogram Screening [facility] Start: 04-18-2016 HPV Testing HPV Testing [facility] Start: 04-18-2016 Pap Testing Pap Testing [facility] Start: 1999 Urine microalbumin profile DTaP,Tdap,Td Vaccine (1 - Tdap) [facility] Start: 1998 Hepatitis C Screening Hepatitis C Sc frantz [facility] Start: 1998 HIV Screening HIV Screening [facility] Start: 1986 Pneumococcal vaccination Pneum ococcal Vaccine (1 - PCV) [facility] Start: 1980 Covid-19 Vaccine (#1) Covid-19 Vacci ne (#1) [facility] Start: 1980 Hepatitis B Vaccine (1 of 3 - 3-dose series) Hepatitis B Vaccine (1 of 3 - 3-dose series) [facility] Immunizations Immunization Date Immunization Notes Care Provider Dyan fam 10-01-2017 influenza virus vaccine, unspecified formulation Vero Salcedo [facility] 04-01-2016 tetanus toxoid, redu eulalia diphtheria toxoid, and acellular pertussis vaccine, adsorbed Walter COLBY [facility] Comment on above: Early/Late Reason: N ursing Judgment 11-14-2014 tetanus toxoid, redu eulalia diphtheria toxoid, and acellular pertussis vaccine, adsorbed Vero Salcedo [facility] NEGATED: Highlighted row has not occurred!01-08-2021 influenza virus vaccine, unspecified formulation Walter COLBY [facility] NEGATED: Highlighted row has not occurred!03-21-2014 pneumococcal polysaccharide vaccine, 23 valent Walter COLBY [facility] Comment on above: Result Comment: pt w as given information sheet and after reading information she decided against the vaccine at this time. Payers Date Payer Category Payer Private Health Insurance [id number] 2015 Medicaid [employer] [id number] 2015-Present [phone] [address] [place] [address] Medicaid [id number] 1980 Unknown [id number]. 182 1980 Unknown [id number] [id number]. 593 1980 Unknown [id number] 2.16.840.1.090499.3.579.2. 593 1980 Unknown [id number] 2.16.840.1.180999.3.579.2. 593 1980 Unknown [id number] 2.16.840.1.255118.3.579.2. 593 1980 Unknown [id number] 2.16.840.1.284694.3.579.2. 593 1980 Unknown [id number] 2.16.840.1.094501.3.579.2. 727 1980 Unknown [id number] 2.16.840.1.091674.3.579.2. 727 1980 Unknown [id number] 2.16.840.1.697387.3.579.2. 727 1980 Unknown [id number] 2.16.840.1.432652.3.579.2. 727 1980 Unknown [id number] 2.16.840.1.009257.3.579.2. 727 1980 Unknown [id number] 2.16.840.1.983679.3.579.2. 727 1980 Unknown [id number] 2.16.840.1.358105.3.579.2. 727 1959 Unknown [id number] 1959 Unknown [id number] Social History Date Type Detail Facility Tobacco Current vaping o r e-cigarette use Smokeless Tobacco Use:. Vaping [facility] Start: 05-12-2023 Sex Assigned At Female [facility] Tobacco smoking status No Smokin g Status Entered [facility] Start: 06-06-2010 Tobacco smoking stat us AKIS Smokes tobacco daily [facility] Work Phone (unformatted): [phone] History of tobacco use Cigarette Smoker C [facility] Work Phone (unformatted): [phone] Start: 06-06-2010 End: 05-12-2023 Cigarettes smoked current (pack per day) - Reported 0.5 [facility] Start: 05-12-2023 Alcohol intake Current drinke r of alcohol (finding) [facility] National Score (1-10 0), lower number is lower risk 55 [facility] Start: 1980 Sex Assigned At Not on file C [facility] Medical Equipment Procedure Code Equipment Code Equipment Origin al Text Equipment Identifier Dates FDA Start: 02-14-2021 FDA Start: 10-29-2021 FDA Start: 02-14-2021 FDA Start: 10-29-2021 CYSTOSCOPY RETROGRADE STENT INSERTION Walter COLBY MD P 02/14/21 Unknown Ureter R FDA Start: 02-14-2021 CYSTOSCOPY RETROGRADE STENT INSERTION Walter COLBY MD P 10/29/21 Unknown Ureter R FDA Start: 10-29-2021 CYSTOSCOPY RETROGRADE STENT INSERTION Walter COLBY MD P 02/14/21 Unknown Ureter R FDA Start: 02-14-2021 CYSTOSCOPY RETROGRADE STENT INSERTION Walter COLBY MD P 10/29/21 Unknown Ureter R FDA Start: 10-29-2021 CYSTOSCOPY RETROGRADE STENT INSERTION Walter COLBY MD P 02/14/21 Unknown Ureter R FDA Start: 02-14-2021 CYSTOSCOPY RETROGRADE STENT INSERTION Walter COLBY MD P 10/29/21 Unknown Ureter R FDA Start: 10-29-2021 CYSTOSCOPY RETROGRADE STENT INSERTION Vero Salcedo MD 06/06/22 Non Biological Ureter L {[id number] [id number] FDA Start: 06-06-2022 CYSTOSCOPY RETROGRADE STENT INSERTION Walter COLBY MD P 02/14/21 Unknown Ureter R FDA Start: 02-14-2021 CYSTOSCOPY RETROGRADE STENT INSERTION Walter COLBY MD P 10/29/21 Unknown Ureter R FDA Start: 10-29-2021 CYSTOSCOPY RETROGRADE STENT INSERTION Walter COLBY MD P 02/14/21 Unknown Ureter R FDA Start: 02-14-2021 CYSTOSCOPY RETROGRADE STENT INSERTION Walter COLBY MD P 10/29/21 Unknown Ureter R FDA Start: 10-29-2021 CYSTOSCOPY RETROGRADE STENT INSERTION Walter COLBY MD P 02/14/21 Unknown Ureter R FDA Start: 02-14-2021 CYSTOSCOPY RETROGRADE STENT INSERTION Walter COLBY MD P 10/29/21 Unknown Ureter R FDA Start: 10-29-2021 CYSTOSCOPY RETROGRADE STENT INSERTION Walter COLBY MD P 02/14/21 Unknown Ureter R FDA Start: 02-14-2021 CYSTOSCOPY RETROGRADE STENT INSERTION Walter COLBY MD P 10/29/21 Unknown Ureter R FDA Start: 10-29-2021 CYSTOSCOPY RETROGRADE STENT INSERTION Walter COLBY MD P 02/14/21 Unknown Ureter R FDA Start: 02-14-2021 CYSTOSCOPY RETROGRADE STENT INSERTION Walter COLBY MD P 10/29/21 Unknown Ureter R FDA Start: 10-29-2021 CYSTOSCOPY RETROGRADE STENT INSERTION Walter COLBY MD P 02/14/21 Unknown Ureter R FDA Start: 02-14-2021 CYSTOSCOPY RETROGRADE STENT INSERTION Walter COLBY MD P 10/29/21 Unknown Ureter R FDA Start: 10-29-2021 CYSTOSCOPY RETROGRADE STENT INSERTION Walter COLBY MD P 02/14/21 Unknown Ureter R FDA Start: 02-14-2021 CYSTOSCOPY RETROGRADE STENT INSERTION Walter COLBY MD P 10/29/21 Unknown Ureter R FDA Start: 10-29-2021 CYSTOSCOPY RETROGRADE STENT INSERTION Walter COLBY MD P 02/14/21 Unknown Ureter R FDA Start: 02-14-2021 CYSTOSCOPY RETROGRADE STENT INSERTION Walter COLBY MD P 10/29/21 Unknown Ureter R FDA Start: 10-29-2021 CYSTOSCOPY RETROGRADE STENT INSERTION Walter COLBY MD P 02/14/21 Unknown Ureter R FDA Start: 02-14-2021 CYSTOSCOPY RETROGRADE STENT INSERTION Walter COLBY MD P 10/29/21 Unknown Ureter R FDA Start: 10-29-2021 CYSTOSCOPY RETROGRADE STENT INSERTION Walter COLBY MD P 02/14/21 Unknown Ureter R FDA Start: 02-14-2021 CYSTOSCOPY RETROGRADE STENT INSERTION Walter COLBY MD P 10/29/21 Unknown Ureter R FDA Start: 10-29-2021 CYSTOSCOPY RETROGRADE STENT INSERTION Wu ROMERO MD 07/23/23 Non Biological Ureter L {[id number] [id number] FDA Start: 07-23-2023 Functional Status Date Assessment Result Facility 07-21-2023 Functional Status N/A [facility] 07-21-2023 Functional Status [facility] 07-17-2022 Functional Status No [facility] 07-16-2022 Functional Status [facility] 07-11-2022 Functional Status N/A [facility] 06-14-2022 Functional Status N/A [facility] 06-06-2022 Functional Status No [facility] 06-05-2022 Functional Status [facility] Clinical Notes 11-21-2021 to 07-30-2023 Note Date & Type Note Facility 07-30-2023 Note Microbiology PROCEDURE: Blood Culture Charcoal [R1] SOURCE: Blood BODY SITE: Arm L COLLECTED DATE/TIME: 07/23/2023 14:44 EST RECEIVED DATE/TIME: 07/23/2023 15:18 EST START DATE/TIME: 07/23/2023 15:18 EST FREE TEXT SOURCE: ERENDIRA AGPCNP, ERENDIRA AGPCNP, Eneida Eneida FINAL REPORTS Final Report [] Verified Date/Time: 07/30/2023 18:00 EST No growth at 7 days. Performing Locations R1: This [facility] was performed at: [facility], [address] [place] [address], [address] [place] [address], [facility] Comment on above: Performed By: #### 1 [id number] #### [facility] [address] [place] [id number] 07-30-2023 Note Microbiology PROCEDURE: Blood Culture Charcoal [R1] SOURCE: Blood BODY SITE: Arm R COLLECTED DATE/TIME: 07/23/2023 14:44 EST RECEIVED DATE/TIME: 07/23/2023 15:19 EST START DATE/TIME: 07/23/2023 15:19 EST FREE TEXT SOURCE: ERENDIRA AGPCNP, ERENDIRA AGPCNP, Eneida Eneida FINAL REPORTS Final Report [] Verified Date/Time: 07/30/2023 18:00 EST No growth at 7 days. Performing Locations R1: This [facility] performed at: [facility], [address] [place] [address], [address] [place] [address], [facility] Comment on above: Performed By: #### 1 [id number] #### [facility] [address] [place] [address] 07-29-2023 Note Microbiology PROCEDURE: Blood Culture Charcoal [R1] SOURCE: Blood BODY SITE: Hand R COLLECTED DATE/TIME: 07/21/2023 19:40 EST RECEIVED DATE/TIME: 07/21/2023 20:18 EST START DATE/TIME: 07/21/2023 20:18 EST FREE TEXT SOURCE: Heriberto Ordaz DO. Heriberto Ordaz DO. FINAL REPORTS Final Report [] Verified Date/Time: 07/29/2023 07:00 EST No growth at 7 days. Performing Locations R1: This test was performed at: [facility], [address] [place] [address], [id number] [place] [address], [facility] Comment on above: Performed By: #### 1 [id number] ####[facility] [address] [place] [address] 07-26-2023 Note Admission and Discha rge Information Admit Date/Time:07/21/2023 20:01 Admitting Physician - Venessa Vasquez MD Admitting Diagnoses: 2. Calculus of ureter, 07/23/2023 4. Acute pyelonephritis, 07/23/2023 6. Fibromyalgia, 07/23/2023 9. Other fci (current) drug therapy, 07/23/2023 Discharge Diagnoses 1. Sepsis, 07/22/2023 2. Calculus of ureter, Obstruction of left ureteropelvic junction (UPJ) due to stone 4. Acute pyelonephritis, 07/23/2023 5. Bacteremia, 07/23/2023 6. Fibromyalgia, 07/23/2023 7. Anxiety, 07/21/2023 8. Smoker, 07/22/2023 9. Other intermission coordinator (current) drug therapy, On deep vein thrombosis (DVT) prophylaxis Flank pain, 07/21/2023 Nausea, 07/21/2023 Urinary tract infection, 07/24/2023 Procedure History Cystoscopy (07/23/2023), Cystoscopic removal of ureteric stent (07/22/2022), Cystoscopy (05/03/2022), Cystoscopy (04/04/2021), ESW[facility] - Extracorporeal shockwave lithotripsy for renal calculus (03/15/2021), Cystoscopy (02/14/2021), Cystoscopy (05/26/2019), ESWL - Extracorporeal shockwave lithotripsy for renal calculus (10/25/2016), Left extracorporeal shockwave lithotripsy x7 (03/01/2016), Caesarean section, Cerclage, Cystoscopy, D&C - Dilatation and curettage, Diagnostic laparoscopy, History of tonsillectomy, Hysterectomy. Hospital Course 43-year-old female who presented to the hospital with left-sided flank pain. Patient was found to be septic on admission with leukocytosis, tachycardia and possible source of infection. Urine culture obtained on admission was eventually positive for E. coli. Patient was treated on admission with IV ceftriaxone 2 g. Patient did receive an IV dose of Levaquin by urology during hospitalization with improvement in labs. ET scan of the abdomen and pelvis showed 1.3 cm UPJ stone in the left with moderate obstruction and inflammation. Patient was treated with Toradol. Consultation was obtained with urology and patient underwent a cystoscopy with placement of 6 [place] left stent that secondary to obstructing left UPJ calculus and UTI. Procedure was performed on 07/23/2023. Patient was treated overnight with acute pyelonephritis. Cultures obtained on admission eventually returned positive. Patient was going to leave AMA she had social issue at home with her son and his caregiver at that time. Patient was sent home on oral Levaquin which was susceptible to both blood and urine cultures. X 10 days. Patient was instructed if she had any further issues or worsen to return to the ED. Patient will follow-up with her PCP following her discharge. Patient was seen by social science professor prior to her leaving as her 8-year-old son was left with her boy from at his home. Boyfriend never took her son to school and there was concern that he had been locked in a room all day and had not been fed. Social service reported to [facility]. Patient left [facility]. She was provided oral antibiotics and instructed to f/u with urology. Physical Exam General: Alert and oriented, No acute distress. Eye: Pupils are equal, round and reactive to light. HENT: Normocephalic, Normal hearing, No pharyngeal erythema. Neck: Supple, Non-tender, No lymphadenopathy. Respiratory: Lungs are clear to auscultation, Respirations are non-labored, Breath sounds are equal, Symmetrical chest wall expansion. Cardiovascular: Normal rate, Regular rhythm, Good pulses equal in all extremities, Normal peripheral perfusion, No edema. Gastrointestinal: Soft, Non-tender, Non-distended, Normal bowel sounds. Musculoskeletal Normal range of motion. Normal strength. Integumentary: Warm, Dry, Intact. Neurologic: Alert, Oriented, No focal deficits. Psychiatric: Cooperative, Appropriate mood & affect, Normal judgment. Laboratory Results Size - 6F (07/23/2023) Automated Diff (07/23/2023) Neutro Auto - 87.7 % Lymph Auto - 5.2 % [place] Auto - 6.7 % Eos Auto - 0.1 % Basophil Auto - 0.3 % Neutro Absolute - 11.4 E9/L Lymph Absolute - 0.7 E9/L [place] Absolute - 0.9 E9/L Eos Absolute - 0.0 E9/L Basophil Absolute - 0.0 E9/L BMP (07/23/2023) Glucose Lvl - 96 mg/dL BUN - 13 mg/dL Creatinine - 1.1 mg/dL BUN/Creat Ratio - 12 Sodium Lvl - 134 mmol/L Potassium Lvl - 3.4 mmol/L Chloride - 109 mmol/L CO2 - 23 mmol/L AGAP - 5 mEq/L Calcium Lvl - 7.8 mg/dL BMP (07/21/2023) Glucose Lvl - 116 mg/dL BUN - 15 mg/dL Creatinine - 1.1 mg/dL BUN/Creat Ratio - 14 Sodium Lvl - 133 mmol/L Potassium Lvl - 3.8 mmol/L Chloride - 101 mmol/L CO2 - 26 mmol/L AGAP - 10 mEq/L Calcium Lvl - 8.8 mg/dL CBC w/ Auto Diff (07/23/2023) WBC - 13.0 E9/L RBC - 3.7 E12/L Hgb - 11.1 gm/dL Hct - 32.6 % MCV - 88.4 fL MCH - 30.1 pg MCHC - 34.1 gm/dL RDW - 13.0 % Platelet - 173.0 E9/L MPV - 8.5 fL eGFR (07/23/2023) eGFR - 64 mL/min/1.73 m2 Hepatic Function Panel (07/21/2023) Alk Phos - 54 Int._Unit/L ALT - 12 Int._Unit/L AST - 18 Int._Unit/L Total Protein - 6.5 gm/dL Albumin Lvl - 3.5 gm/dL Globulin - (more content not included)... [facility] Comment on above: Result Comment: Elec tronically Signed By: Eneida BAZAN\.br\Date and Time Signed: 07/26/23 12:26 EST\.br\Electronically Co-Signed By: Vasile Sahni MD\.br\Date and Time Co-Signed: 07/26/23 16:53 EST 07-24-2023 Note Microbiology PROCEDURE: Blood Culture Charcoal [R1] SOURCE: Blood BODY SITE: Arm L COLLECTED DATE/TIME: 07/21/2023 19:35 EST RECEIVED DATE/TIME: 07/21/2023 20:18 EST START DATE/TIME: 07/21/2023 20:18 EST FREE TEXT SOURCE: [facility] Heriberto Ordaz DO, DO, Heriberto Perez. FINAL REPORTS Final Report [] Verified Date/Time: 07/24/2023 10:43 EST Escherichia coli In 2 of 2 blood culture bottles drawn. Isolated from aerobic and anaerobic bottles Preliminary gram stain result of gram negative rods Result called to Faby Felix CNP by [facility] and results read back for confirmation on 07/23/2023 12:30:34 SUSCEPTIBILITY RESULTS LEGEND: S=Susceptible, N/R=Not Reported, Blank=Data not available, or drug not advisable or tested, I=Intermediate, ESBL=Extended spectrum beta-lactamase, R=Resistant, TFG=Thymidine-dependent strain, PARMJIT=Beta-lactamase positive, KALYAN=mcg/m;(mg/L), S*=Predicted susceptible interp, R*=Predicted resistant interp EC Antibiotic KALYAN Dilutn KALYAN Interp Amikacin <=16 S Ampicillin <=8 S Ampicillin/ <=8/4 S Sulbactam Aztreonam <=4 S Cefazolin <=2 S Cefepime <=2 S Cefoxitin <=8 S Ceftazidime <=1 S Ceftazidime/ <=8 S Avibactam Ceftriaxone <=1 S Ciprofloxacin <=1 S Ertapenem <=0.5 S Gentamicin <=4 S Levofloxacin <=2 S Meropenem <=1 S Nitrofurantoin <=32 Piperacillin/ <=16 S Tazobactam Tetracycline <=4 S Tigecycline <=2 S Tobramycin <=4 S Trimethoprim/ <=2/38 S Sulfa Performing Locations R1: This test was performed at: [facility], [address] [place] [address], [facility]- , , [facility] Comment on above: Performed By: #### 1 [id number] #### [facility] [address] [place] [address] 07-23-2023 Evaluation + Plan note Extrac margie from: Title:UPDATE Author:Tamara BAZAN Date:07/23/23 Call received from Arline quinones. Blood cultures returned 1 set (2 bottles) positive for gram neg rods ? Ecoli which matches urine culture. Continue IV antibx today. Extracted from: Title:APSO Note Author:Tamara BAZAN e Date:07/23/23 PLAN: 1. Sepsis (A41.9: Sepsis, unspecified organism Present on admit improving Secondary to obstructing stone, UTI/Pyelonephritis WBC 24.4, Tachycardia on tele, UA abnormal, Urine Cx positive for Ecoli. Blood cx prelim neg. IVF, IV Ceftriaxone- continue 2 gm QD Given 1 dose IV Levaquin by urology yesterday. 2. Obstruction of left ureteropelvic junction (UPJ) due to stone (N20.1: Calculus of ureter) CT showed a 1.3 cm UPJ stone in the left with moderate obstruction and inflammation Toradol or IV Tylenol prn pain IVF off. Urology consulted, Dr Romero pt is s/p cystoscopy with placement of 6French left stent secondary to obstructing left UPJ calculus and UTI. POD #0 3. Acute pyelonephritis (N10: Acute pyelonephritis) Due to above stone. Urine cx Ecoli. Continue Rocephin- increase to 2 gm daily Blood cx prelim neg. 4. Fibromyalgia syndrome (M79.7: Fibromyalgia) Chronic, stable 5. Anxiety (F41.9: Anxiety disorder, unspecified) Chronic, stable No on any home medication per my review. Ordered Ativan IV prn 6. Smoker (F17.200: Nicotine dependence, unspecified, uncomplicated) Marijuana-counseled on cessation. 7. On deep vein thrombosis (DVT) prophylaxis (Z79.899: Other fci (current) drug therapy) SCDs Extracted from: Title:ANES Post-operative Note - General Author: Fabrice Jeronimo Jr., DO Date:07/23/23 Plan Transfer/Discharge: Transfer/Discharge Discharge when meets criteria ( From PACU to Ambulatory Surgery Unit, and To home ). Extracted from: Title:Urology Consult Note Author:Ella ROMERO MD Date:07/23/23 Impression and Plan Impression: #1. She has a 13 mm left UPJ calculus causing pain, hydronephrosis, infection and leukocytosis. She needs to get unobstructed. 2. She has bilateral nonobstructing renal stones left greater than right. 3. She has recurrent nephrolithiasis. Plan: #1. Clinically, she is stable with the addition of Levaquin and her white count coming down. She needs to get added onto the OR schedule for today so that we can do cystoscopy and left stent placement. This will decompress her and allow her infection to clear along with her pain to subside. 2. After she cools down with the stent and oral antibiotics for a few weeks, she then will need to be brought back for definitive ureteroscopic laser lithotripsy on her left side. Once she is stone and stent free we then need to repeat a full stone metabolic workup to figure out the etiology of her stone formation and help her with future stone prevention. Over 30 minutes of clinical time was spent talking with the ER doctor, the nursing staff, the patient and reviewing her films and chart. Thank you for letting me take part in her care. Extracted from: Title:ANES Pre-operative Note - Adult Author:Fabrice Sánchez Jr., DO Date:07/23/23 Plan [place] [employer]hesi[employer] (ASA) physical status classification: Class II. Anesthetic Preoperative Plan: Anesthesia General. Extracted from: Title:APSO Note Author:Kelin MCKNIGHT CNP Date: 07/22/23 1. Sepsis (A41.9: Sepsis, un specified organism Present on admit Secondary to obstructing stone, UTI/Pyelonephritis WBC 24.4, Tachycardia on tele, UA abnormal, Urine Cx pending, Blood cx pending IVF, IV Ceftriaxone- increase 2 gm QD 2. Obstruction of left ureteropelvic junction (UPJ) due to stone (N20.1: Calculus of ureter) CT showed a 1.3 cm UPJ stone in the left with moderate obstruction and inflammation Toradol or IV Tylenol prn pain Hydrate NS at 150 cc/hr Urology consulted, Dr Romero recommending NPO for OR. 3. Acute pyelonephritis (N10: Acute pyelonephritis) Due to above stone. Urine cx pending Continue Rocephin- increase to 2 gm daily Blood cx pending. 4. Fibromyalgia syndrome (M79.7: Fibromyalgia) Chronic, stable 5. Anxiety (F41.9: Anxiety disorder, unspecified) Chronic, stable No on any home medication per my review. Ordered Ativan IV prn 6. Smoker (F17.200: Nicotine dependence, unspecified, uncomplicated) Marijuana We strongly recommend to quit tobacco use. Cigarette smoking harms nearly every organ of the body, causes many diseases, and reduces the health of smokers in general. Quitting smoking lowers your risk for smoking-related diseases and can add years to your life. We encourage you to visit www.smokefree.gov access to helpful resources including free telephone support. If you decide on prescription treatment to help you quit, we would be happy to provide these. 7. On deep vein thrombosis (DVT) prophylaxis (Z79.899: Other fci (current) drug therapy) SCDs Orders: ceftriaxone + Sodium Chloride 0.9% intravenous solution 50 mL, 2,000 mg = 1 EA, Injection, IV Piggyback, Daily, Routine, Start date 07/22/23 9:00:00 EST, 100 mL/hr, Infuse over 30 minute(s) Extracted from: Title:Admission H & P Author:Venessa Vasquez MD Date:07/21/23 1. Obstruction of left urete ropelvic junction (UPJ) due to stone (N20.1: Calculus of ureter) CT showed a 1.3 cm UPJ stone in the left with moderate obstruction and inflammation Toradol or IV Tylenol prn pain Hydrate NS at 150 cc/hr Urology consulted. Dr Romero recommending NPO for OR. 2. Acute pyelonephritis (N10: Acute pyelonephritis) Due to above stone. Patient does meet SIRS criteria, no sepsis. Urine cx pending Continue Rocephin. Blood cx pending. 3. Fibromyalgia syndrome (M79.7: Fibromyalgia) Chronic, stable 4. Anxiety (F41.9: Anxiety disorder, unspecified) Chronic, stable No on any home medication per my review. Ordered Ativan IV prn Extracted from: Title:ED Note Author:Bekah Thomas, Jennifer Bhagat te:07/21/23 1. Flank pain (R10.9: Unspec ified abdominal pain) Orders: ketorolac, 30 mg = 1 mL, Injection, IV Push, Once, Stop date 07/21/23 18:17:00 EST, STAT, Start date 07/21/23 18:17:00 EST, 07/21/23 18:17:00 EST ondansetron, 4 mg = 2 mL, Injection, IV Push, Once, Stop date 07/21/23 18:17:00 EST, STAT, Start date 07/21/23 18:17:00 EST, 07/21/23 18:17:00 EST Sodium Chloride 0.9% intravenous solution, 1,000 mL, Soln-IV, IV, Once, Stop date 07/21/23 18:17:00 EST, STAT, Start date 07/21/23 18:17:00 EST, Infuse over 61, minute(s) Automated Diff Basic Metabolic Panel CBC w/ Auto Diff CT Abdomen/Pelvis w/o Contrast eGFR Hepatic Function Panel Lipase Level PT & PTT UA With Cult Reflex Urine Culture Diagnostic Tests Pending * Blood Culture Charcoal 07/23/23 * Blood Culture Charcoal 07/23/23 Future Scheduled Tests Laboratory* Total Protein 24 Hour Urine 11/04/22 [id number] Hospital Discharge instructions Patient Education 07/23/2023 11:49:28 Kidney Stones Kidney Stones Kidney stones are solid, rock-like deposits that form inside of the kidneys. The kidneys are a pairof organs that make urine. A kidney stone may form in a kidney and move into other parts of the urinary tract, including the tubes that connect the kidneys to the bladder (ureters), the bladder, and the tube that carries urine out of the body (urethra). As the stone moves through these areas, it can cause intense pain and block the flow of urine. Kidney stones are created when high levels of certain minerals are found in the urine. The stones are usually passed out of the body through urination, but in some cases, medical treatment may be needed to remove them. What are the causes? Kidney stones may be caused by: A condition in which certain glands produce too much parathyroid hormone (primary hyperparathyroidism), which causes too much calcium buildup in the blood. A buildup of uric acid crystals in the bladder (hyperuricosuria). Uric acid is a chemical that the body produces when you eat certain foods. It usually leaves the body in the urine. Narrowing (stricture) of one or both of the ureters. A kidney blockage that is present at (congenital obstruction). Past surgery on the kidney or the ureters. What increases the risk? The following factors may make you more likely to develop this condition: Having had a kidney stone in the past. Having a family history of kidney stones. Not drinking enough water. Eating a diet that is high in protein, salt (sodium), or sugar. Being overweight or obese. What are the signs or symptoms? Symptoms of a kidney stone may include: Pain in the side of the abdomen, right below the ribs (flank pain). Pain usually spreads (radiates)to the groin. Needing to urinate often or urgently. Painful urination. Blood in the urine (hematuria). Nausea. Vomiting. Fever and chills. How is this diagnosed? This condition may be diagnosed based on: Your symptoms and medical history. A physical exam. Blood tests. Urine tests. These may be done before and after the stone passes out of your body through urination. Imaging tests, such as a CT scan, abdominal X-ray, or ultrasound. A procedure to examine the inside of the bladder (cystoscopy). How is this treated? Treatment for kidney stones depends on the size, location, and makeup of the stones. Kidney stones will often pass out of the body through urination. You may need to: Increase your fluid intake to help pass the stone. In some cases, you may be given fluids through an IV and may need to be monitored in the hospital. Take medicine for pain. Make changes in your diet to help prevent kidney stones from coming back. Sometimes, procedures are needed to remove a kidney stone. This may involve: A procedure to break up kidney stones using: ?A focused beam of light (laser therapy). ?Shock waves (extracorporeal shock wave lithotripsy). Surgery to remove kidney stones. This may be needed if you have severe pain or have stones that block your urinary tract. Follow these instructions at home: Medicines Take pqmg-wxl-buoedwa and prescription medicines only as told by your health care provider. Ask your health care provider if the medicine prescribed to you requires you to avoid driving or using heavy machinery. Eating and drinking Drink enough fluid to keep your urine pale yellow. You may be instructed to drink at least 8 10 glasses of water each day. This will help you pass the kidney stone. If directed, change your diet. This may include: ?Limiting how much sodium you eat. ?Eating more fruits and vegetables. ?Limiting how much animal protein you eat. Animal proteins include red meat, poultry, fish, and eggs. ?Eating a normal amount of calcium (1,000 1,300 mg per day). Follow instructions from your health care provider about eating or drinking restrictions. General instructions Collect urine samples as told by your health care provider. You may need to collect a urine sample: ?24 hours after you pass the stone. ?8 12 weeks after you pass the kidney stone, and every 6 12 months after that. Strain your urine every time you urinate, for as long as directed. Use the strainer that your health care provider recommends. Do not throw out the kidney stone after passing it. Keep the stone so it can be tested by your health care provider. Testing the makeup of your kidney stone may help prevent you from getting kidney stones in the future. Keep all follow-up visits. You may need follow-up X-rays or ultrasounds to make sure that your stone has passed. How is this prevented? To prevent another kidney stone: Drink enough fluid to keep your urine pale yellow. This is the best way to prevent kidney stones. Eat a healthy diet. Follow recommendations from your health care provider about foods to avoid. Recommendations vary depending on the type of kidney stone that you have. You may be instructed to eat a low-protein diet. Maintain a healthy weight. Where to find more information National Kidney Foundation (NKF): www.kidney.org [facility] (UCF): www.urologyhealth.org Contact a health care provider if: You have pain that gets worse or does not get better with medicine. Get help right away if: You have a fever or chills. You develop severe pain. You develop new abdominal pain. You faint. You are unable to urinate. Summary Kidney stones are solid, rock-like deposits that form inside of the kidneys. Kidney stones can cause nausea, vomiting, blood in the urine, abdominal pain, and the urge to urinate often. Treatment for kidney stones depends on the size, location, and makeup of the stones. Kidney stones will often pass out of the body through urination. Kidney stones can be prevented by drinking enough fluids, eating a healthy diet, and maintaining a healthy weight. This information is not intended to replace advice given to you by your health care provider. Make sure you discuss any questions you have with your health care provider. Document Revised: 11/20/2022 Document Reviewed: 11/20/2022 [employer] Patient Education 2022 [employer] 07/23/2023 11:49:28 Pyelonephritis, Adult Pyelonephritis, Adult Pyelonephritis is an infection that occurs in the kidney. The kidneys are the organs that filter a person's blood and move waste out of the bloodstream and into the urine. Urine passes from the kidneys, through tubes called ureters, and into the bladder. There are two main types of pyelonephritis: Infections that come on quickly without any warning (acute pyelonephritis). Infections that last for a long period of time (chronic pyelonephritis). In most cases, the infection clears up with treatment and does not cause further problems. More severe infections or chronic infections can sometimes spread to the bloodstream or lead to other problems with the kidneys. What are the causes? This condition is usually caused by: Bacteria traveling from the bladder up to the kidney. This may occur after having a bladder infection (cystitis) or urinary tract infection (UTI). Bladder infections caused from bacteria traveling from the bloodstream to the kidney. What increases the risk? This condition is more likely to develop in: women. Older people. People who have any of these conditions: ?Diabetes. ?Inflammation of the prostate gland (prostatitis), in males. ?Kidney stones or bladder stones. ?Other abnormalities of the kidney or ureter. ?Cancer. People who have a catheter placed in the bladder. People who are sexually active. Women who use spermicides. People who have had a prior UTI. What are the signs or symptoms? Symptoms of this condition include: Frequent urination. Strong or persistent urge to urinate. Burning or stinging when urinating. Abdominal pain. Back pain. Pain in the side or flank area. Fever or chills. Blood in the urine, or dark urine. Nausea or vomiting. How is this diagnosed? This condition may be diagnosed based on: Your medical history and a physical exam. Urine tests. Blood tests. You may also have imaging tests of the kidneys, such as an ultrasound or CT scan. How is this treated? Treatment for this condition may depend on the severity of the infection. If the infection is mild and is found early, you may be treated with antibiotic medicines taken by mouth (orally). You will need to drink fluids to remain hydrated. If the infection is more severe, you may need to stay in the hospital and receive antibiotics givendirectly into a vein through an IV. You may also need to receive fluids through an IV if you are not able to remain hydrated. After your hospital stay, you may need to take oral antibiotics for a period of time. Other treatments may be required, depending on the cause of the infection. Follow these instructions at home: Medicines Take your antibiotic medicine as told by your health care provider. Do not stop taking the antibiotic even if you start to feel better. Take args-axn-frgzpbg and prescription medicines only as told by your health care provider. General instructions Drink enough fluid to keep your urine pale yellow. Avoid caffeine, tea, and carbonated beverages. They tend to irritate the bladder. Urinate often. Avoid holding in urine for long periods of time. Urinate before and after sex. After a bowel movement, women should cleanse from front to back. Use each tissue only once. Keep all follow-up visits as told by your health care provider. This is important. Contact a health care provider if: Your symptoms do not get better after 2 days of treatment. Your symptoms get worse. You have a fever. Get help right away if you: Are unable to take your antibiotics or fluids. Have shaking chills. Vomit. Have severe flank or back pain. Have extreme weakness or fainting. Summary Pyelonephritis is a urinary tract infection (UTI) that occurs in the kidney. Treatment for this condition may depend on the severity of the infection. Take your antibiotic medicine as told by your health care provider. Do not stop taking the antibiotic even if you start to feel better. Drink enough fluid to keep your urine pale yellow. Keep all follow-up visits as told by your health care provider. This is important. This information is not intended to replace advice given to you by your health care provider. Make sure you discuss any questions you have with your health care provider. Document Revised: 03/21/2022 Document Reviewed: 03/21/2022 [employer] Patient Education 2022 [employer]. 07/23/2023 11:49:28 Urosepsis, Adult Urosepsis, Adult Urosepsis is a type of sepsis. Sepsis is a severe bodily reaction to an infection. Urosepsis is caused by a bacterial infection that starts in the urinary tract and spreads to the blood. The urinary tract is the system where urine is made, stored, and passed out of the body. It includes the kidneys, ureters, bladder, and urethra. This may also be called the urinary system. In severe cases, sepsis can lead to septic shock. Septic shock can weaken your heart and cause yourblood pressure to drop. This can make the body's central nervous system and other organs stop working. Urosepsis is a medical emergency that requires immediate treatment in a hospital. What are the causes? Common causes of this condition include: A urinary tract infection (UTI) that spreads to your blood. A urinary tract blockage due to kidney stones. Swelling and inflammation of the prostate (prostatitis) or prostate infection, in males. What increases the risk? You are more likely to develop this condition if you: Are female, especially if you are sexually active. Are age 65 or older. Have a long-term disease, such as kidney disease or diabetes. Have a weak disease-fighting system (immune system). Have a condition that lessens or changes urine flow, such as a kidney or bladder stone, prostate disease, or a tumor in the urinary tract. Have had surgery in an area of the urinary tract. Have a small, thin tube in your urethra that drains urine from your bladder for a period of time (indwelling urinary catheter). Have lost feeling below the waist or are in a wheelchair. What are the signs or symptoms? Early symptoms of this condition are similar to symptoms of a severe UTI. They include: Pain in your side, back, or lower abdomen. Fever and chills. Nausea and vomiting. Frequent need to pass urine. Burning pain when passing urine. Bloody or cloudy urine. Bad-smelling urine. Trouble passing urine or not being able to pass urine at all. Fatigue. Once the infection has spread to the blood and a sepsis reaction starts, symptoms may include: Chills with shaking. Cold and clammy skin. A fever of 101.3 F (38.5 C) or higher. Low body temperature of 96.8 F (36 C) or lower. Fast breathing or trouble breathing. Fast heartbeat. Severe pain in the abdomen. Muscle aches. Anxiety or confusion. Problems staying awake. Fainting. How is this diagnosed? This condition is diagnosed based on your symptoms, your medical history, and a physical exam. You may also have: Urine tests or blood tests to check kidney function and to look for infection. Imaging tests such as a CT scan or ultrasound to check for blockages in the urinary system. How is this treated? This condition is a medical emergency that needs to be treated right away in the hospital. This condition may be treated with: An IV so that you can quickly receive: ?Antibiotic medicines. ?Fluids. ?Medicines to support your blood pressure. Oxygen and breathing support, if needed. Removing a urinary catheter, if you have one, if it is the source of the infection, if this applies. Filtering your blood with a machine (dialysis). This process cleans your blood if your kidneys havefailed. Surgery to drain infected areas or restore urine flow. This is rare. Follow these instructions at home: Medicines Take [id number] and prescription medicines only as told by your health care provider. If you were prescribed an antibiotic medicine, take it as told by your health care provider. Do notstop using the antibiotic even if you start to feel better. General instructions Drink enough fluid to keep your urine pale yellow. Return to your normal activities as told by your health care provider. Ask your health care provider what activities are safe for you. Keep all follow-up visits. This is important. Contact a health care provider if: You have symptoms that get worse or do not get better with treatment. You have new UTI symptoms. Get help right away if: You have new or continued symptoms of sepsis after hospitalization, such as: ?A fever of 101.3 F (38.5 C) or higher. ?Low body temperature of 96.8 F (36 C) or lower. ?Chills. ?Severe pain. ?Difficulty breathing. ?Confusion. ?Sleepiness. ?Nausea and vomiting. These symptoms may represent a serious problem that is an emergency. Do not wait to see if the symptoms will go away. Get medical help right away. Call your local emergency services (911 in the [place] Do not drive yourself to the hospital. Summary Urosepsis is a type of sepsis. Sepsis is a severe bodily reaction to an infection. Urosepsis is a medical emergency that requires immediate treatment in a hospital. Possible causes of urosepsis include a urinary tract infection that spreads to your blood, blockagefrom kidney stones, and prostate swelling or infection in males. This condition may be treated with an IV so that you can quickly receive antibiotic medicines, fluids, and medicines to support your blood pressure. Other treatments may be used as well. Get help right away if you have new or continued symptoms of sepsis after hospitalization. This information is not intended to replace advice given to you by your health care provider. Make sure you discuss any questions you have with your health care provider. Document Revised: 06/25/2021 Document Reviewed: 06/25/2021 Elsevier Patient Education 2022 [employer] Follow Up Care 07/21/2023 16:59:02 With:Wu ROMERO Address: [facility] [address] [place] [address]- Business (1) When: Unknown Comments:Doctor's office will call about appointment With:Kaitlyn Beasley Address: [address] [place] [address] [place] [address]- Business (1) When:07/29/2023 08:30:00 [facility]11-28-2023 NoteChief Complaint Pt presents to ED with complaints of left flank pain onset yesterday with nausea. hx of stones. History of Present Illness 43-year-old female with a history of renal stones who presented to the emergency room with left-sided flank pain. Onset of pain was yesterday. She describes it as sharp and it radiates down into the groin. She has had some nausea but no vomiting. No hematuria or dysuria. Reports pressure with urinating. Denies fever, but reports chills. This morning the pain escalated to where she came in for evaluation. Workup in the ER revealed a nearly obstructing 1.3 cm left UPJ stone with inflammation present. Urinalysis does appear infected. She was medicated with Toradol and started on Rocephin. Dr. Romero with urology was contacted and recommended she be NPO for probable OR. Review of Systems Constitutional: no fever, + chills, no sweats, no weakness Skin: no jaundice, no rash, no lesions, no petechiae ENMT: no ear pain, no sore throat, no congestion, no hoarseness Respiratory: no shortness of breath, no cough, no orthopnea, no wheezing Cardiovascular: no chest pain, no palpitations, no edema Gastrointestinal: + nausea, no vomiting, no diarrhea, + abdominal pain Genitourinary: no dysuria, no hematuria Musculoskeletal: no trauma, + left flank pain Neurologic: no headache, no dizziness, no weakness Psychiatric: no depression, + anxiety Heme/Lymph: no bleeding tendency, no bruising tendency Additional ROS info: Except as noted in the above Review of Systems and in the History of Present Illness all other systems have been reviewed and are negative or noncontributory. Scoring Powell Fall Risk Score: 20 (07/21/23) Physical Exam Vitals & Measurements T: 36.9 ?C(Oral) TMIN: 36.9 ?C(Oral) TMAX: 37.0 ?C(Oral) HR: 110(Peripheral) RR: 20 BP: 105/71 SpO2: 99% HT: 149.86 cm WT: 56.5 kg General: non-toxic appearing Skin: warm, dry, no rash Head: AT/NC Neck: Trachea midline, supple Eye: normal conjunctiva, sclera clear Cardiovascular: regular rate and rhythm, S1S2, normal peripheral perfusion Respiratory: Lungs CTA, respirations non labored, breath sounds equal, no w/r/r Chest wall: no deformity, no TTP Gastrointestinal: soft, Diffusely TTP L>R, ND, no peritoneal signs Extremities: no deformity, no edema Neurological: oriented, LOC appropriate for age, no focal deficits, normal speech Psychiatric: cooperative, affect appropriate for age, good eye contact Lab Results WBC: 25.5 E9/L High (07/21/23 18:34:00) RBC: 4.4 E12/L (07/21/23 18:34:00) HGB: 13.1 gm/dL (07/21/23 18:34:00) Hct: 38.9 % (07/21/23 18:34:00) MCV: 87.5 fL (07/21/23 18:34:00) MCH: 29.5 pg (07/21/23 18:34:00) MCHC: 33.7 gm/dL (07/21/23 18:34:00) RDW: 12.6 % (07/21/23 18:34:00) Platelet: 300 E9/L (07/21/23 18:34:00) MPV: 7.6 fL (07/21/23 18:34:00) Neutro Auto: 90.2 % High (07/21/23 18:34:00) Lymph Auto: 2 % Low (07/21/23 18:34:00) [place] Auto: 7.3 % (07/21/23 18:34:00) Eos Auto: 0 % (07/21/23 18:34:00) Basophil Auto: 0.5 % (07/21/23 18:34:00) Neutro Absolute: 23 E9/L High (07/21/23 18:34:00) Lymph Absolute: 0.5 E9/L Low (07/21/23 18:34:00) [place] Absolute: 1.9 E9/L High (07/21/23 18:34:00) Eos Absolute: 0 E9/L (07/21/23 18:34:00) Basophil Absolute: 0.1 E9/L (07/21/23 18:34:00) PT: 13.5 second(s) High (07/21/23 18:34:00) INR: 1.2 (07/21/23 18:34:00) PTT: 30.8 second(s) (07/21/23 18:34:00) Glucose Lvl: 116 mg/dL (07/21/23 18:34:00) BUN: 15 mg/dL (07/21/23 18:34:00) Creatinine: 1.1 mg/dL (07/21/23 18:34:00) eGFR: 64 mL/min/1.73 m2 (07/21/23 18:34:00) BUN/Creat Ratio: 14 (07/21/23 18:34:00) Sodium Lvl: 133 mmol/L Low (07/21/23 18:34:00) Potassium Lvl: 3.8 mmol/L (07/21/23 18:34:00) Chloride: 101 mmol/L (07/21/23 18:34:00) CO2: 26 mmol/L (07/21/23 18:34:00) AGAP: 10 mEq/L (07/21/23 18:34:00) Calcium Lvl: 8.8 mg/dL Low (07/21/23 18:34:00) Alk Phos: 54 Int._Unit/L (07/21/23 18:34:00) ALT: 12 Int._Unit/L (07/21/23 18:34:00) AST: 18 Int._Unit/L (07/21/23 18:34:00) Total Protein: 6.5 gm/dL (07/21/23 18:34:00) Albumin Lvl: 3.5 gm/dL (07/21/23 18:34:00) Globulin: 3 gm/dL (07/21/23 18:34:00) A/G Ratio: 1.2 (07/21/23 18:34:00) Bili Total: 0.7 mg/dL (07/21/23 18:34:00) Bili Direct: 0.2 mg/dL (07/21/23 18:34:00) Bili Indirect: 0.5 mg/dL (07/21/23 18:34:00) Lipase Lvl: 31 unit/L (07/21/23 18:34:00) Lactic Acid Lvl: 1 mmol/L (07/21/23 19:35:00) UA Spec Desc: Clean Catch (07/21/23 18:02:00) UA Color: Yellow2 (07/21/23 18:02:00) UA Clarity: Cloudy2 Abnormal (07/21/23 18:02:00) UA Spec Grav: 1.025 (07/21/23 18:02:00) UA pH: 6.0 (07/21/23 18:02:00) UA Protein: 1+ Abnormal (07/21/23 18:02:00) UA Glucose: NEGATIVE1 (07/21/23 18:02:00) UA Ketones: NEGATIVE1 (07/21/23 18:02:00) UA Bili: NEGATIVE1 (07/21/23 18:02:00) UA Blood: 2+ Abnormal (07/21/23 18:02:00) UA Nitrite: NEGATIVE1 (07/21/23 18:02:00) UA Urobilinogen: 0.2 (07/21/23 18:02:00) UA Leuk Est: 3+ Abnormal (07/21/23 18:02: (more content not included)...[facility]:Result Comment: Electronically Signed By: Pedro BAILEY, Venessa\.francisco\Date and Time Signed: 07/21/23 22:27 [id number] Note HNO ID: [id number] Author: Clifford Pedroza MD Service: ? Author Type: Physician Type: Progress Notes Filed: 05/13/2023 11:03 AM Note Text: . [facility] SERVICE DATE: 05/12/2023 SERVICE TIME: 9:47 AM New patient CHIEF COMPLAINT: Kidney stones HPI: Ms. Carr is a 42 year old female who presents with kidney stones Duration (when): for the past many years Location (where): Both sides. Most recently on the left Severity (ex: creat 4.5, BP 200/100): Moderate Quality (ex: sharp, dull): Dull achy pain Context (ex: activity at onset or related to condition): History of intermittent hematuria Timing (ex: continuous, intermittent): Intermittent Modifying factors (ex: medications, interventions): Consider this as a possible water drinker Associated signs AND symptoms (ex: edema, SOB): No shortness of breath or chest pain. Very pleasant 40-year-old lady is in the office with her boyfriend. She is in the office to discuss more about her kidney stones. Apparently has been having kidney stone issues for the past many years. Never passed any stones. She tells me that she is underwent at least 30 procedures in the past. Most recent procedure was done in June 2022 when she had a left ureteric stent which was removed later. She tells me that her stones are predominantly calcium oxalate stones. Reports her periods were adopted and hence limitations in the family history. She follows with Dr Beasley in [place](Urology). I was able to see some records/ She currently does not take any prescription medication. She currently is not exposed to lead but has lived in houses with lead paint. Occasionally has twitching in the left flank and thinks it might be the stone. She also reports intermittent hematuria during these episodes. She likes green tea and iced tea. She identifies herself is a poor water drinker. Also has been drinking clear sodas. Both her parents were adopted. No kidney stone history in her parents. PAST MEDICAL HISTORY: PAST MEDICAL HISTORY Diagnosis Date Endometriosis Fibromyalgia IBS (irritable bowel syndrome) Migraine PAST SURGICAL HISTORY: PAST SURGICAL HISTORY Procedure Laterality Date DELIVERY ONLY 2001 , low cervical COLPOSCOPY CERVIX UPPER/ADJACENT VAGINA 10 years ago Colposcopy PAST SURGICAL HISTORY OF cryo 10 years ago PAST SURGICAL HISTORY OF 2009 laparoscopy PAST SURGICAL HISTORY OF 2009 [facility] FAMILY HISTORY: No family history on file. SOCIAL HISTORY: Social History Tobacco Use Smoking status: Every Day Packs/day: 0.50 Years: 25.00 Additional pack years: 0.00 Total pack years: 12.50 Types: Cigarettes Substance Use Topics Alcohol use: Yes Comment: SOCIAL Drug use: Yes Comment: mj--LAST TIME 06/01/13 MEDICATIONS: ibuprofen 800 mg tablet Take 800 mg by mouth every 6 hours as needed. tiZANidine (ZANAFLEX) 4 mg tablet Take 4 mg by mouth daily at bedtime. gabapentin (NEURONTIN) 300 mg capsule Take 300 mg by mouth twice daily. MEDICATION, NON-DATABASE chlordiazepoxide-clidinium (LIBRAX, WITH CLINIDIUM,) 5-2.5 mg ORAL per capsule Take 1 capsule by mouth before meals and at bedtime. ALLERGIES: ALLERGIES Allergen Reactions Morphine Itching Vicodin [Hydrocodon* Itching REVIEW OF SYSTEMS: CONSTITUTIONAL: No fevers, chills, nightsweats, reports weight loss in the past several months HEENT: Denies frequent or severe heaches, recurrent sinus/nasal congestion symptoms. No hearing loss EYES: No diplopia or blurry vision. No redness in eye CARDIOVASCULAR: No chest pain, dyspnea, palpitations, orthopnea, PND, ankle edema. PULM: No dyspnea, unexplained cough. GI: No dysphagia/odynophagia, reflux symptoms, abdominal pain, constipation, diarrhea, hematochezia, melena. Left flank pain intermittently. : She can smell the blood in the urine as told to me. Occasional hematuria. Never passed any stones NEURO: No new balance problems, peripheral weakness/paresthesias or numbness MUSC-SKEL: No new joint pain, swelling, or erythema. PSY: No concerns regarding depression, anxiety or panic. INTEGUMENTARY: No new skin changes/ rashes No recent NSAID intake PHYSICAL EXAM: BP 102/62 Pulse 88 Resp 16 Wt 52.6 kg (116 lb) LMP 12/18/2008 BMI 22.65 kg/m? Constitutional: No acute distress, Responsive, Normal habitus, and Well-nourished Eyes: Conjunctiva clear Ear, Nose, and Throat: Hearing normal and Lips normal Neck:No jugular venous distension Cardiovascular:No peripheral edema Regular rate and ryhthm, normal S1 and S2, no murmurs, rubs, or gallops Respiratory: Normal respiratory effort. Air entry is equal and Lungs clear bilaterally. Abdomen:Soft, non-tender, non-distended. Normal bowel sounds. No hepatosplenomegaly. Musculoskeletal: No clubbing or cyanosis of digits. Normocephalic., and No muscl (more content not included)...[facility]09-18-2023 History of Present illness Narrative* Clifford Pedroza MD - 05/12/2023 9:46 AM EDT Images from the original note were not included. . [facility] SERVICE DATE: 05/12/2023 SERVICE TIME: 9:47 AM New patient CHIEF COMPLAINT: Kidney stones HPI: Ms. Carr is a 42 year old female who presents with kidney stones Duration (when): for the past many years Location (where): Both sides. Most recently on the left Severity (ex: creat 4.5, BP 200/100): Moderate Quality (ex: sharp, dull): Dull achy pain Context (ex: activity at onset or related to condition): History of intermittent hematuria Timing (ex: continuous, intermittent): Intermittent Modifying factors (ex: medications, interventions): Consider this as a possible water drinker Associated signs & symptoms (ex: edema, SOB): No shortness of breath or chest pain. Very pleasant 40-year-old lady is in the office with her boyfriend. She is in the office to discuss more about her kidney stones. Apparently has been having kidney stone issues for the past many years. Never passed any stones. She tells me that she is underwent at least 30 procedures in the past. Most recent procedure was done in June 2022 when she had a left ureteric stent which was removed later. She tells me that her stones are predominantly calcium oxalate stones. Reports her periods were adopted and hence limitations in the family history. She follows with Dr Beasley in [place](Urology). I was able to see some records/ She currently does not take any prescription medication. She currently is not exposed to lead but has lived in houses with lead paint. Occasionally has twitching in the left flank and thinks it might be the stone. She also reports intermittent hematuria during these episodes. She likes green tea and iced tea. She identifies herself is a poor water drinker. Also has been drinking clear sodas. Both her parents were adopted. No kidney stone history in her parents. PAST MEDICAL HISTORY: PAST MEDICAL HISTORY Diagnosis Date Endometriosis Fibromyalgia IBS (irritable bowel syndrome) Migraine PAST SURGICAL HISTORY: PAST SURGICAL HISTORY Procedure Laterality Date DELIVERY ONLY 2001 , low cervical COLPOSCOPY CERVIX UPPER/ADJACENT VAGINA 10 years ago Colposcopy PAST SURGICAL HISTORY OF cryo 10 years ago PAST SURGICAL HISTORY OF 2009 laparoscopy PAST SURGICAL HISTORY OF 2009 [facility] FAMILY HISTORY: No family history on file. SOCIAL HISTORY: Social History Tobacco Use Smoking status: Every Day Packs/day: 0.50 Years: 25.00 Additional pack years: 0.00 Total pack years: 12.50 Types: Cigarettes Substance Use Topics Alcohol use: Yes Comment: SOCIAL Drug use: Yes Comment: mj--LAST TIME 06/01/13 MEDICATIONS: ibuprofen 800 mg tablet Take 800 mg by mouth every 6 hours as needed. tiZANidine (ZANAFLEX) 4 mg tablet Take 4 mg by mouth daily at bedtime. gabapentin (NEURONTIN) 300 mg capsule Take 300 mg by mouth twice daily. MEDICATION, NON-DATABASE chlordiazepoxide-clidinium (LIBRAX, WITH CLINIDIUM,) 5-2.5 mg ORAL per capsule Take 1 capsule by mouth before meals and at bedtime. ALLERGIES: ALLERGIES Allergen Reactions Morphine Itching Vicodin [Hydrocodon* Itching REVIEW OF SYSTEMS: CONSTITUTIONAL: No fevers, chills, nightsweats, reports weight loss in the past several months HEENT: Denies frequent or severe heaches, recurrent sinus/nasal congestion symptoms. No hearing loss EYES: No diplopia or blurry vision. No redness in eye CARDIOVASCULAR: No chest pain, dyspnea, palpitations, orthopnea, PND, ankle edema. PULM: No dyspnea, unexplained cough. GI: No dysphagia/odynophagia, reflux symptoms, abdominal pain, constipation, diarrhea, hematochezia, melena. Left flank pain intermittently. : She can smell the blood in the urine as told to me. Occasional hematuria. Never passed any stones NEURO: No new balance problems, peripheral weakness/paresthesias or numbness MUSC-SKEL: No new joint pain, swelling, or erythema. PSY: No concerns regarding depression, anxiety or panic. INTEGUMENTARY: No new skin changes/ rashes No recent NSAID intake PHYSICAL EXAM: BP 102/62 Pulse 88 Resp 16 Wt 52.6 kg (116 lb) LMP 12/18/2008 BMI 22.65 kg/m Constitutional: No acute distress, Responsive, Normal habitus, and Well-nourished Eyes: Conjunctiva clear Ear, Nose, and Throat: Hearing normal and Lips normal Neck:No jugular venous distension Cardiovascular:No peripheral edema Regular rate and ryhthm, normal S1 and S2, no murmurs, rubs, or gallops Respiratory: Normal respiratory effort. Air entry is equal and Lungs clear bilaterally. Abdomen:Soft, non-tender, non-distended. Normal bowel sounds. No hepatosplenomegaly. Musculoskeletal: No clubbing or cyanosis of digits. Normocephalic., and No muscle weakness, joint tenderness, or joint effusions. Neurologic:CN II-XII intact and Normal sensation Psychiatric: Alert and oriented x self, place, time, and setting Normal mood/affect No skin rashes. DATA: Diagnostic tests reviewed for today's visit: We have reviewed the CT abdomen which was done on the of this month. CMP done in June 2022 was reviewed. This can be seen Care Everywhere. She have not showed of acute pyelonephritis in June. Enterococcus growing urine ASSESSMENT AND PLAN: 1. Kidney stone - ICD9: 592.0, ICD10: N20.0 History of kidney stones for the past many years. She has not had a 24-hour urine collection in years as told to me. I like to get a 24-hour urine Litholink studies to determine mine her risk factors for stone formation. We discussed about dietary interventions to reduce stone formation such as increasing fluid intake to make 2 L of urine, low-sodium diet, avoiding sodas and reducing consumption of iced tea. She is going to make these adjustments in her diet. I will obtain a urine analysis to assess for any occult hematuria. Her creatinine levels were normal in June 2022. Most recent CT of the abdomen done on was reviewed with the patient. These showed normal- sized kidneys. Left intrarenal stone which is1.5 to 0.7 cm with no hydronephrosis. - URINALYSIS, WITH MICROSCOPIC I spent a total of >60 minutes on the date of the service which included preparing to see the patient, [id number] patient care, completing clinical documentation, obtaining and/or reviewing separately obtained history, performing a medically appropriate examination, counseling and educating the patient/family/caregiver, ordering medications, tests, or procedures, communicating with other HCPs (not separately reported) and independently interpreting results (not separately reported). SIGNATURE: Clifford Pedroza MD PATIENT NAME: Nkechi Carr DATE: May 12, 2023 TIME: 9:47 AM OFFICE NUMBER: [id number] CC: REFERRING PROVIDER: Kaitlyn Beasley III, * PRIMARY CARE PHYSICIAN: No primary care provider on file. [facility] + Plan note Future Scheduled Tests Laboratory* Total Protein 24 Hour Urine 11/04/22 [facility] 11-28-2022 Hospital Discharge instructions Patient Education 07/22/2022 11:23:21 Dietary Guidelines to Help Prevent Kidney Stones Dietary Guidelines to Help Prevent Kidney Stones Kidney stones are deposits of minerals and salts that form inside your kidneys. Your risk of developing kidney stones may be greater depending on your diet, your lifestyle, the medicines you take, and whether you have certain medical conditions. Most people can reduce their chances of developing kidney stones by following the instructions below. Depending on your overall health and the type of kidney stones you tend to develop, your dietitian may give you more specific instructions. What are tips for following this plan? Reading food labels Choose foods with no salt added or low-salt labels. Limit your sodium intake to less than 1500 mg per day. Choose foods with calcium for each meal and snack. Try to eat about 300 mg of calcium at each meal.Foods that contain 200 500 mg of calcium per serving include: ?8 oz (237 ml) of milk, fortified nondairy milk, and fortified fruit juice. ?8 oz (237 ml) of kefir, yogurt, and soy yogurt. ?4 oz (118 ml) of tofu. ?1 oz of cheese. ?1 cup (300 g) of dried figs. ?1 cup (91 g) of cooked broccoli. ?1 3 oz can of sardines or mackerel. Most people need 1000 to 1500 mg of calcium each day. Talk to your dietitian about how much calciumis recommended for you. Shopping Buy plenty of fresh fruits and vegetables. Most people do not need to avoid fruits and vegetables, even if they contain nutrients that may contribute to kidney stones. When shopping for convenience foods, choose: ?Whole pieces of fruit. ?Premade salads with dressing on the side. ?Low-fat fruit and yogurt smoothies. Avoid buying frozen meals or prepared deli foods. Look for foods with live cultures, such as yogurt and kefir. Cooking Do not add salt to food when cooking. Place a salt shaker on the table and allow each person to addhis or her own salt to taste. Use vegetable protein, such as beans, textured vegetable protein (TVP), or tofu instead of meat in pasta, casseroles, and soups. Meal planning Eat less salt, if told by your dietitian. To do this: ?Avoid eating processed or premade food. ?Avoid eating fast food. Eat less animal protein, including cheese, meat, poultry, or fish, if told by your dietitian. To dothis: ?Limit the number of times you have meat, poultry, fish, or cheese each week. Eat a diet free of meat at least 2 days a week. ?Eat only one serving each day of meat, poultry, fish, or seafood. ?When you prepare animal protein, cut pieces into small portion sizes. For most meat and fish, one serving is about the size of one deck of cards. Eat at least 5 servings of fresh fruits and vegetables each day. To do this: ?Keep fruits and vegetables on hand for snacks. ?Eat 1 piece of fruit or a handful of berries with breakfast. ?Have a salad and fruit at lunch. ?Have two kinds of vegetables at dinner. Limit foods that are high in a substance called oxalate. These include: ?Spinach. ?Rhubarb. ?Beets. ?Potato chips and beninese fries. ?Nuts. If you regularly take a diuretic medicine, make sure to eat at least 1 2 fruits or vegetables high in potassium each day. These include: ?Avocado. ?Banana. ?[place], prune, carrot, or tomato juice. ?Baked potato. ?Cabbage. ?Beans and split peas. General instructions Drink enough fluid to keep your urine clear or pale yellow. This is the most important thing you can do. Talk to your health care provider and dietitian about taking daily supplements. Depending on your health and the cause of your kidney stones, you may be advised: ?Not to take supplements with vitamin C. ?To take a calcium supplement. ?To take a daily probiotic supplement. ?To take other supplements such as magnesium, fish oil, or vitamin B6. Take all medicines and supplements as told by your health care provider. Limit alcohol intake to no more than 1 drink a day for non women and 2 drinks a day for men. One drink equals 12 oz of beer, 5 oz of wine, or 1 oz of hard liquor. Lose weight if told by your health care provider. Work with your dietitian to find strategies and an eating plan that works best for you. What foods are not recommended? Limit your intake of the following foods, or as told by your dietitian. Talk to your dietitian about specific foods you should avoid based on the type of kidney stones and your overall health. Grains Breads. Bagels. Rolls. Baked goods. Salted crackers. Cereal. Pasta. Vegetables Spinach. Rhubarb. Beets. Canned vegetables. Pickles. Olives. Meats and other protein foods Nuts. Nut butters. Large portions of meat, poultry, or fish. Salted or cured meats. Deli meats. Hotdogs. Sausages. Dairy Cheese. Beverages Regular soft drinks. Regular vegetable juice. Seasonings and other foods Seasoning blends with salt. Salad dressings. Canned soups. Soy sauce. Ketchup. Barbecue sauce. Canned pasta sauce. Casseroles. Pizza. Lasagna. Frozen meals. Potato chips. [place] fries. Summary You can reduce your risk of kidney stones by making changes to your diet. The most important thing you can do is drink enough fluid. You should drink enough fluid to keep your urine clear or pale yellow. Ask your health care provider or dietitian how much protein from animal sources you should eat eachday, and also how much salt and calcium you should have each day. This information is not intended to replace advice given to you by your health care provider. Make sure you discuss any questions you have with your health care provider. Document Released: 12/06/2011 Document Revised: 12/01/2019 Document Reviewed: 07/22/2017 Elsevier Patient Education 2020 [employer]. 07/22/2022 11:23:21 EU - Cystoscopy with Stent Removal Discharge Instructions (CUSTOM) Cystoscopy with Stent Removal Voiding after the procedure: there may be some pain, burning, urgency, frequency and blood tinged urine following the procedure. These symptoms usually resolve within 2-5 days. Drink the amount of fluid it takes to keep the urine pink to yellow or clear in color. Drinking enough water and fluids will help to ease any discomfort after your procedure. If you are having problems that seem out of the ordinary, please call. If unable to contact your physician and you feel it is an emergency, go to the nearest emergency room or call 911 Diet you may resume your normal diet. Activity you may resume your normal activities Call if you have a fever over 100 degrees. Follow Up Care 07/09/2022 10:40:02 With:Walter COLBY Address: [address] [place] [address] Business (1) When: Unknown Comments:Keep scheduled appointment [facility]11-23-2022 Evaluation + Plan noteExtracted from: Title:Admission H & P Author:Wu NEGRON DO Date:07/17/22 1. Sepsis (A41.9: Sepsis, un specified organism) Patient received a bolus of 2 L exceeding the 30 cc/kg. Please note lactic acid which was initially elevated has now normalized. Patient's blood pressures though still low normal have also improved. Will resume IV fluid monitor renal function electrolytes. With patient being hypo-K limit we will add potassium to the maintenance IV 2. Acute pyelonephritis (N10: Acute pyelonephritis) Is suggested based on flank tenderness on percussion, abnormal UA satisfying septic parameters. Please note CT scan did not demonstrate any perinephric stranding Ordered: HYDROmorphone, 0.5 mg = 0.5 mL, Injection, IV Push, q4hr PRN Pain, Routine, Start date 07/17/22 3:59:00 EST, 07/17/22 3:59:00 EST ketorolac, 15 mg = 1 mL, Injection, IV Push, q6hr PRN Pain for 5 day(s), Stop date 07/22/22 3:58:00 EST, Routine, Start date 07/17/22 3:59:00 EST, 07/17/22 3:59:00 EST Consult to Urology 3. Ureteral stent present (Z96.0: Presence of urogenital implants) Double-J on the left which replaced a previously existing stent on 03 July. We will consult in light of above urology Ordered: tamsulosin, 0.4 mg = 1 cap(s), Cap, Oral, Daily, Routine, Start date 07/17/22 9:00:00 EST, 07/17/22 4:00:00 EST Consult to Urology 4. Recurrent kidney stones (N20.0: Calculus of kidney) No obstructing stones at this juncture there is also noted to be a nonobstructing stone in the right. See CT scan report above 5. Bipolar disorder (F31.9: Bipolar disorder, unspecified) Patient acknowledged she has stopped her medications greater than 6 to 7 months prior 6. Chronic GERD (K21.9: Gastro-esophageal reflux disease without esophagitis) Patient is not currently symptomatic is on no agents will observe closely 7. IBS (irritable colon syndrome) (K58.9: Irritable bowel syndrome without diarrhea) Monitor closely any anticholinergics used for above will likely need to be supplemented with stool softeners 8. Hyponatremia (E87.1: Hypo-osmolality and hyponatremia) Recheck as we continue to hydrate Ordered: potassium chloride 10 mEq + Sodium Chloride 0.9% intravenous solution 1,000 mL, 1,000 mL, IV, 100cc/h, Routine, Start date 07/17/22 4:02:00 EST, Total volume (mL): 1,000, 53 kg, 1.5, m2 9. Hypokalemia (E87.6: Hypokalemia) Add potassium to the maintenance IV fluid Ordered: potassium chloride 10 mEq + Sodium Chloride 0.9% intravenous solution 1,000 mL, 1,000 mL, IV, 100cc/h, Routine, Start date 07/17/22 4:02:00 EST, Total volume (mL): 1,000, 53 kg, 1.5, m2 10. DVT prophylaxis (Z29.9: Encounter for prophylactic measures, unspecified) Use SCDs and if procedural intervention is not pursued and patient remains hospitalized with limited ambulatory capability we will then reassess potential benefits of heparin subcutaneous Orders: acetaminophen, 650 mg = 2 tab(s), Tab, Oral, q6hr PRN Pain, Routine, Start date 07/17/22 4:01:00 EST, 07/17/22 4:01:00 EST ceftriaxone + Sodium Chloride 0.9% intravenous solution 50 mL, 2,000 mg = 1 EA, IV Piggyback, q24hr for 10 day(s), Stop date 07/27/22 20:59:00 EST, Routine, Start date 07/17/22 21:00:00 EST, 100 mL/hr, Infuse over 30 minute(s), 07/17/22 21:00:00 EST ondansetron, 4 mg = 2 mL, Injection, IV Push, q6hr PRN Nausea, Routine, Start date 07/17/22 4:01:00 EST, 07/17/22 4:01:00 EST Basic Metabolic Panel Bedside Commode Below the Knee Intermittent Pneumatic Compression Device CBC w/ Auto Diff Notify Provider Vital Signs Notify Provider Vital Signs NPO Diet Place in Status Resuscitation Status - Full Vital Signs Weight Plan admitting as she met septic criteria as a general inpatient with the anticipation she require greater than 2 midnight stay Extracted from: Title:ED Note Author:Rd Pierce PA-C Joss e:07/16/22 Acute pyelonephritis (N10: A cute pyelonephritis) Orders: ceftriaxone + Sodium Chloride 0.9% intravenous solution 50 mL, 1,000 mg = 1 EA, IV Piggyback, Once, Stop date 07/16/22 21:30:00 EST, STAT, Start date 07/16/22 21:30:00 EST, 100 mL/hr, Infuse over 30 minute(s), 07/16/22 21:30:00 EST HYDROmorphone, 0.5 mg = 0.5 mL, Injection, IV Push, Once, Stop date 07/16/22 19:00:00 EST, STAT, Start date 07/16/22 19:00:00 EST, 07/16/22 19:00:00 EST HYDROmorphone, 0.5 mg = 0.5 mL, Injection, IV Push, Once, Stop date 07/16/22 21:29:00 EST, STAT, Start date 07/16/22 21:29:00 EST, 07/16/22 21:29:00 EST ondansetron, 4 mg = 2 mL, Injection, IV Push, Once, Stop date 07/16/22 19:00:00 EST, STAT, Start date 07/16/22 19:00:00 EST, 07/16/22 19:00:00 EST Sodium Chloride 0.9% intravenous solution, 1,000 mL, Soln-IV, IV, Once, Stop date 07/16/22 18:53:00 EST, STAT, Start date 07/16/22 18:53:00 EST, mL/hr, Infuse over 61, minute(s) Sodium Chloride 0.9% intravenous solution, 1,000 mL, IV, Stop date 07/16/22 21:45:00 EST, Start date 07/16/22 21:45:00 EST Automated Diff Blood Culture Charcoal Blood Culture Charcoal CBC w/ Auto Diff Comprehensive Metabolic Panel Continuous Pulse Oximetry CT Abdomen/Pelvis w/o Contrast ECG 12 Lead Adult ED Cardiac Monitoring ED Physician consult Hospitalist for continued care eGFR Extra SST Tube Lactic Acid Lactic Acid Oxygen Therapy PT & PTT Troponin UA With Cult Reflex Urine Culture XR Chest Single View Future Appointments Appointment Date:07/22/2022 10:15:00 AM Scheduled Provider: Location:[facility] Appointment Type:Urology FT Appointment Date:07/29/2022 11:15:00 AM Scheduled Provider:Walter COLBY MD Location:[facility] Appointment Type:URO Office Visit Diagnostic Tests Pending * Blood Culture Charcoal 07/16/22 * Blood Culture Charcoal 07/16/22 [facility]10-21-2022 Hospital Discharge instructions Patient Education 06/14/2022 10:37:41 Kidney Stones, Klvq-yq-Xdki Kidney Stones Kidney stones are rock-like masses that form inside of the kidneys. Kidneys are organs that make pee (urine). A kidney stone may move into other parts of the urinary tract, including: The tubes that connect the kidneys to the bladder (ureters). The bladder. The tube that carries urine out of the body (urethra). Kidney stones can cause very bad pain and can block the flow of pee. The stone usually leaves your body (passes) through your pee. You may need to have a doctor take out the stone. What are the causes? Kidney stones may be caused by: A condition in which certain glands make too much parathyroid hormone (primary hyperparathyroidism). A buildup of a type of crystals in the bladder made of a chemical called uric acid. The body makes uric acid when you eat certain foods. Narrowing (stricture) of one or both of the ureters. A kidney blockage that you were born with. Past surgery on the kidney or the ureters, such as gastric bypass surgery. What increases the risk? You are more likely to develop this condition if: You have had a kidney stone in the past. You have a family history of kidney stones. You do not drink enough water. You eat a diet that is high in protein, salt (sodium), or sugar. You are overweight or very overweight (obese). What are the signs or symptoms? Symptoms of a kidney stone may include: Pain in the side of the belly, right below the ribs (flank pain). Pain usually spreads (radiates) to the groin. Needing to pee often or right away (urgently). Pain when going pee (urinating). Blood in your pee (hematuria). Feeling like you may vomit (nauseous). Vomiting. Fever and chills. How is this treated? Treatment depends on the size, location, and makeup of the kidney stones. The stones will often pass out of the body through peeing. You may need to: Drink more fluid to help pass the stone. In some cases, you may be given fluids through an IV tube put into one of your veins at the hospital. Take medicine for pain. Make changes in your diet to help keep kidney stones from coming back. Sometimes, medical procedures are needed to remove a kidney stone. This may involve: A procedure to break up kidney stones using a beam of light (laser) or shock waves. Surgery to remove the kidney stones. Follow these instructions at home: Medicines Take ychs-uqy-usupzrk and prescription medicines only as told by your doctor. Ask your doctor if the medicine prescribed to you requires you to avoid driving or using heavy machinery. Eating and drinking Drink enough fluid to keep your pee pale yellow. You may be told to drink at least 8 10 glasses of water each day. This will help you pass the stone. If told by your doctor, change your diet. This may include: ?Limiting how much salt you eat. ?Eating more fruits and vegetables. ?Limiting how much meat, poultry, fish, and eggs you eat. Follow instructions from your doctor about eating or drinking restrictions. General instructions Collect pee samples as told by your doctor. You may need to collect a pee sample: ?24 hours after a stone comes out. ?8 12 weeks after a stone comes out, and every 6 12 months after that. Strain your pee every time you pee (urinate), for as long as told. Use the strainer that your doctor recommends. Do not throw out the stone. Keep it so that it can be tested by your doctor. Keep all follow-up visits as told by your doctor. This is important. You may need follow-up tests. How is this prevented? To prevent another kidney stone: Drink enough fluid to keep your pee pale yellow. This is the best way to prevent kidney stones. Eat healthy foods. Avoid certain foods as told by your doctor. You may be told to eat less protein. Stay at a healthy weight. Where to find more information National Kidney Foundation (NKF): www.kidney.org [facility] (UCF): www.urologyhealth.org Contact a doctor if: You have pain that gets worse or does not get better with medicine. Get help right away if: You have a fever or chills. You get very bad pain. You get new pain in your belly (abdomen). You pass out (faint). You cannot pee. Summary Kidney stones are rock-like masses that form inside of the kidneys. Kidney stones can cause very bad pain and can block the flow of pee. The stones will often pass out of the body through peeing. Drink enough fluid to keep your pee pale yellow. This information is not intended to replace advice given to you by your health care provider. Make sure you discuss any questions you have with your health care provider. Document Released: 01/27/2009 Document Revised: 12/28/2019 Document Reviewed: 12/28/2019 [employer] Patient Education 2019 [employer] Follow Up Care 06/13/2022 11:51:05 With:Vero Salcedo MD, URL, URO Address: When: Unknown [facility] [place] 10-14-2022 Evaluation + Plan noteExtracted from: Title:Discharge Note Author:Camron PAVON MD Date: 06/07/22 Discharge To, Anticipated II - Home with responsible caregiver Discharged to - Home independently Transported by, Anticipated - Family Discharge Diet(s): Regular (06/07/22 08:56:00) Prescriptions eluxadoline 100 mg oral tablet, 100 mg= 1 tab(s), Oral, BID, 2 refills, Not taking Keflex 500 mg Cap, 500 mg= 1 cap(s), Oral, QID omeprazole 40 mg Cap-DR, 40 mg= 1 cap(s), Oral, Daily, Not taking omeprazole 40 mg Cap-DR, 40 mg= 1 cap(s), Oral, Daily, 11 refills, Not taking oxybutynin 5 mg ER Tab, 5 mg= 1 tab(s), Oral, Daily, PRN Pyridium 100 mg Tab, 100 mg= 1 tab(s), Oral, TIDPC, PRN tamsulosin 0.4 mg Cap, 0.4 mg= 1 cap(s), Oral, Daily Home acetaminophen 325 mg Tab, 650 mg= 2 tab(s), Oral, q6hr, PRN, Not taking busPIRone 7.5 mg oral tablet, 7.5 mg= 1 tab(s), Oral, BID, Not taking cyproheptadine 4 mg Tab, 8 mg= 2 tab(s), Oral, Bedtime, Not taking fluticasone 0.05 mg/inh Nasal [place], 2 spray(s), Nasal, Daily nortriptyline 10 mg Cap, 10 mg= 1 cap(s), Oral, TID, Not taking tiZANidine 4 mg Tab, 4 mg= 1 tab(s), Oral, q8hr, PRN, Not taking With When Contact Information Kaitlyn Beasley Within 3 to [address] [facility], [place] [address]- Business (1) Additional Instructions: Vero Salcedo Within 1 to 2 weeks [address] [phone]- [phone] Business (1) Additional Instructions: Call for followup appointment in 1-2 weeks with [facility] Renal Colic, Mbmj-ys-Rith Dietary Guidelines to Help Prevent Kidney Stones Ureteral Stent Implantation, Care After Extracted from: Title:Admission H & P Author:Wu NEGRON DO Date:06/06/22 1. Acute sepsis (A41.9: Seps is, unspecified organism) Patient satisfies criteria with the markedly elevated white cell count, elevated heart rate and elevated respiratory rate with lower blood pressure. I did discuss with the nurse who advised me that the patient had received a liter of fluid in the surgical suite and had received a liter in the emergency department. I did see a bolus in addition for 250 cc for a total suggested of 2250 cc. Based on patient's weight of 57 kg patient was required to receive 1700 cc. She has not presently having any fluids run we will resume IV fluids, this will also theoretically help with her constipation as well. Await blood cultures. We will continue Rocephin we will increase the dosing however the 2 g. Note routine septic orders were not used for I will order a lactic acid, blood cultures have already been ordered, patient is already received antibiotics which will be continued is already received her required fluid and I have ordered maintenance IV. It is hopeful that with relief of the obstruction (see below) that she will have a quick and rapid response. Note we will monitor her heart rate which in part could be elevated due to pain. Note on a hospitalization in October patient's drug screen was positive for methamphetamines, which she denies using and states she suspect her vape was contaminated with this. Should patient have persistent tachycardia we will be mindful of this Ordered: Lactic Acid 2. Acute pyelonephritis (N10: Acute pyelonephritis) With left flank pain. Though creatinine is mildly elevated ,anticipate with release of obstruction and IV fluids renal function should improve. Ordered: ceftriaxone + Sodium Chloride 0.9% intravenous solution 50 mL, 2,000 mg = 1 EA, IV Piggyback, q24hr, Routine, Start date 06/06/22 21:00:00 EDT, 100 mL/hr, Infuse over 30 minute(s), 06/06/22 21:00:00 EDT 3. Obstructive uropathy (N13.9: Obstructive and reflux uropathy, unspecified) Secondary to below. Patient did have a mild elevation in creatinine of 1.3 was 0.7 in October. We will make as needed Toradol available but will be mindful of renal function. We will make Percocet available as well but I have explained to the patient we will try to minimize its use because it can predispose towards constipation. Would prefer to use anti-inflammatories provided again renal function is stable, antispasmodics and Flomax (ordered by urology) Ordered: acetaminophen-oxycodone, 1 tab(s), Tab, Oral, q6hr PRN Pain, Stop date 06/10/22 3:40:00 EDT, Routine, Start date 06/06/22 4:20:00 EDT ketorolac, 15 mg = 1 mL, Injection, IV Push, q6hr for 5 day(s), Stop date 06/11/22 4:59:00 EDT, Routine, Start date 06/06/22 5:00:00 EDT, 06/06/22 4:20:00 EDT 4. Renal lithiasis (N20.0: Calculus of kidney) Patient states her prior kidney stones have been calcium face. She has multiple stents, with radiologic procedures and extra shockwave trips in the past. Patient with further recommendations by neurology 5. Constipation (K59.00: Constipation, unspecified) Theoretically could worsen with antispasmodics we will therefore start Colace and make MiraLAX available Ordered: docusate, 100 mg = 1 cap(s), Cap, Oral, BID, Routine, Start date 06/06/22 9:00:00 EDT, 06/06/22 4:21:00 EDT polyethylene glycol 3350, 17 gram = 1 EA, Powder-Recon, Oral, Once, Stop date 06/06/22 8:00:00 EDT, Routine, Start date 06/06/22 8:00:00 EDT, 06/06/22 8:00:00 EDT TSH With T4fr Reflex 6. Vaping nicotine dependence, tobacco product (F17.290: Nicotine dependence, other tobacco product, uncomplicated) Explained to her in layman's terms consequences of vaping 7. Marijuana use (F12.90: Cannabis use, unspecified, uncomplicated) Discussed with her the entity of cyclical vomiting which she has had risk for. Advise cessation 8. Hyponatremia (E87.1: Hypo-osmolality and hyponatremia) We will repeat after patient is given IV fluid. With constipation we will check thyroid function studies 9. Fibromyalgia (M79.7: Fibromyalgia) 10. Bipolar disorder (F31.9: Bipolar disorder, unspecified) Patient states she stopped taking all of her medication 6 months ago. We will monitor 11. History of seizures (Z87.898: Personal history of other specified conditions) Patient has a vague description stating it occurs only when she gets septic or when she has surgery and her last seizure was 2 years ago. We will monitor 12. DVT prophylaxis (Z29.9: Encounter for prophylactic measures, unspecified) We use SCDs and encourage early ambulation Orders: acetaminophen, 650 mg = 2 tab(s), Tab, Oral, q6hr PRN Pain, Routine, Start date 06/06/22 4:23:00 EDT, 06/06/22 4:23:00 EDT ondansetron, 4 mg = 2 mL, Injection, IV Push, q6hr PRN Nausea, Routine, Start date 06/06/22 4:23:00 EDT, 06/06/22 4:23:00 EDT Sodium Chloride 0.9% intravenous solution 1,000 mL, 1,000 mL, IV, 150 mL/hr, Routine, Start date 06/06/22 4:23:00 EDT, 6.7 hour(s), Total volume (mL): 1,000, 57 kg, 1.55, m2 Basic Metabolic Panel Below the Knee Intermittent Pneumatic Compression Device CBC w/ Auto Diff Clear Liquid Diet Notify Provider Vital Signs Notify Provider Vital Signs Place in Status Resuscitation Status - Full Up ad Dianna Vital Signs Weight Patient is admitted as general inpatient with the anticipation she require 2 midnight stay Extracted from: Title:EU- Cysto, L RPG, L stent Author:Matias BAILEY, Daron Darnell. Date:06/06/22 Impression and Plan Diagnosis Acute pyelonephritis ([id number]-[id number] N10, Discharge, Medical). Acute sepsis (KKL73-XZ A41.9, Working, Medical). Complaint of Flank pain (PNED [id number], Reason For Visit, Nursing). Renal stone (RNA78-BR N20.0, Discharge, Medical). Diagnosis Acute pyelonephritis (IQB00-YZ N10, Discharge, Medical). Acute sepsis (BLV58-CO A41.9, Working, Medical). Complaint of Flank pain (PNED [id number], Reason For Visit, Nursing). Renal stone (RIH80-TP N20.0, Discharge, Medical). Counseled: Patient. Extracted from: Title:EU- Urology Consultation Note Author:Vero Wood Date:06/06/22 Impression and Plan Genitourinary/Renal Diagnosis Acute pyelonephritis ([id number]-IZ N10, Discharge, Medical). Acute sepsis (IQE24-MT A41.9, Working, Medical). Complaint of Flank pain (PNED [id number], Reason For Visit, Nursing). Renal stone (PHU24-IW N20.0, Discharge, Medical). Plan 41 yo F as above with acute pyelonephritis in the setting of partially obstructing 9x6mm left renal stone and sepsis with tachycardia, severe leukocytosis and tachypnea, developing hypotension. Given findings and concern for worsening sepsis, plan for urgent decompression with cystoscopy, left retrograde pyelogram, left ureteral stent placement. RIsks discussed including but not limited to bleeding, pain, infection, damage to surrounding structures, ureteral perforation, stricture, inability to place a stent and need for additional procedures. Pt understands the stent is not permanent and needs to be removed or exchanged within 3 months to prevent encrustation, infection, permanent renal damage and need for more invasive procedures. Continue close monitoring, empiric IV antibiotics and resuscitation under Hospitalist. Follow up outpatient to discuss definitive stone treatment after acute infection has resolved. . Extracted from: Title:ED Note Author:Rd Pierce PA-C Joss e:06/05/22 Acute pyelonephritis (N10: A cute pyelonephritis) Leukocytosis (D72.829: Elevated white blood cell count, unspecified) Renal stone (N20.0: Calculus of kidney) Orders: HYDROmorphone, 1 mg = 1 mL, Injection, IV Push, Once, Stop date 06/05/22 20:35:00 EDT, STAT, Start date 06/05/22 20:35:00 EDT, 06/05/22 20:35:00 EDT ondansetron, 4 mg = 2 mL, Injection, IV Push, Once, Stop date 06/05/22 20:36:00 EDT, STAT, Start date 06/05/22 20:36:00 EDT, 06/05/22 20:36:00 EDT Sodium Chloride 0.9% intravenous solution, 1,000 mL, Soln-IV, IV, Once, Stop date 06/05/22 20:35:00 EDT, STAT, Start date 06/05/22 20:35:00 EDT, Infuse over 61, minute(s) .Manual Abs Basic Metabolic Panel Blood Culture Charcoal Blood Culture Charcoal CBC w/ Auto Diff CT Abdomen/Pelvis w/o Contrast ED Physician consult Hospitalist for continued care eGFR Extra Blue Tube Extra SST Tube Hepatic Function Panel Lactic Acid Lipase Level Manual Diff NPO Diet Path. Review UA With Cult Reflex Urine Culture Future Appointments Appointment Date:06/12/2022 08:00:00 AM Scheduled Provider:Vero Salcedo MD Location:[facility] Appointment Type:URO Office Visit Appointment Date:07/29/2022 11:15:00 AM Scheduled Provider:Walter COLBY MD Location:[facility] Appointment Type:URO Office Visit [facility]10-13-2022 Hospital Discharge instructions Patient Education 06/06/2022 01:18:40 Renal Colic, Ckoi-nn-Srwa Renal Colic Renal colic is pain that is caused by a kidney stone. The pain can be sharp and very bad. It may befelt in the back, belly, side (flank), or groin. It can cause nausea. Renal colic can come and go. Follow these instructions at home: Medicines Take dpan-ktn-kujakpz and prescription medicines only as told by your doctor. Do not drive or use heavy machinery while taking prescription pain medicine. Eating and drinking Drink enough fluid to keep your pee (urine) pale yellow. You may be told to drink at least 8 10 glasses of water each day. Follow instructions from your doctor. If told, change your diet. This may include eating: ?Less salt (sodium). Eat less than 2 grams (2,000 mg) of salt per day. ?Less meat, poultry, fish, and eggs. ?More fruits and vegetables. ?Try not to eat spinach, rhubarb, sweet potatoes, or nuts. Follow instructions from your doctor about what foods and drinks to avoid. General instructions Keep all follow-up visits as told by your doctor. This is important. Collect pee samples as told by your doctor. Strain your pee every time you pee, as told by your doctor. Use the strainer that your doctor recommends. Do not throw out the kidney stone after passing it. Keep the stone so it can be tested by your doctor. Contact a doctor if: You have a fever or chills. Your pee smells bad or looks cloudy. You have pain or burning when you pee. Get help right away if: The pain in your side (flank) or your groin suddenly gets worse. You get confused. You pass out. Summary Renal colic is pain that is caused by a kidney stone. Take grwa-xzm-jyhmmir and prescription medicines only as told by your doctor. Drink enough fluid to keep your pee pale yellow. You may be told to drink at least 8 10 glasses of water each day. Follow instructions from your doctor. Strain your pee every time you pee, as told by your doctor. Use the strainer that your doctor recommends. Do not throw out the kidney stone after passing it. Keep the stone so it can be tested by your doctor. This information is not intended to replace advice given to you by your health care provider. Make sure you discuss any questions you have with your health care provider. Document Released: 01/27/2009 Document Revised: 09/08/2018 Document Reviewed: 09/08/2018 [employer] Patient Education 2020 [employer]. 06/06/2022 01:18:40 Dietary Guidelines to Help Prevent Kidney Stones Dietary Guidelines to Help Prevent Kidney Stones Kidney stones are deposits of minerals and salts that form inside your kidneys. Your risk of developing kidney stones may be greater depending on your diet, your lifestyle, the medicines you take, and whether you have certain medical conditions. Most people can reduce their chances of developing kidney stones by following the instructions below. Depending on your overall health and the type of kidney stones you tend to develop, your dietitian may give you more specific instructions. What are tips for following this plan? Reading food labels Choose foods with no salt added or low-salt labels. Limit your sodium intake to less than 1500 mg per day. Choose foods with calcium for each meal and snack. Try to eat about 300 mg of calcium at each meal.Foods that contain 200 500 mg of calcium per serving include: ?8 oz (237 ml) of milk, fortified nondairy milk, and fortified fruit juice. ?8 oz (237 ml) of kefir, yogurt, and soy yogurt. ?4 oz (118 ml) of tofu. ?1 oz of cheese. ?1 cup (300 g) of dried figs. ?1 cup (91 g) of cooked broccoli. ?1 3 oz can of sardines or mackerel. Most people need 1000 to 1500 mg of calcium each day. Talk to your dietitian about how much calciumis recommended for you. Shopping Buy plenty of fresh fruits and vegetables. Most people do not need to avoid fruits and vegetables, even if they contain nutrients that may contribute to kidney stones. When shopping for convenience foods, choose: ?Whole pieces of fruit. ?Premade salads with dressing on the side. ?Low-fat fruit and yogurt smoothies. Avoid buying frozen meals or prepared deli foods. Look for foods with live cultures, such as yogurt and kefir. Cooking Do not add salt to food when cooking. Place a salt shaker on the table and allow each person to addhis or her own salt to taste. Use vegetable protein, such as beans, textured vegetable protein (TVP), or tofu instead of meat in pasta, casseroles, and soups. Meal planning Eat less salt, if told by your dietitian. To do this: ?Avoid eating processed or premade food. ?Avoid eating fast food. Eat less animal protein, including cheese, meat, poultry, or fish, if told by your dietitian. To dothis: ?Limit the number of times you have meat, poultry, fish, or cheese each week. Eat a diet free of meat at least 2 days a week. ?Eat only one serving each day of meat, poultry, fish, or seafood. ?When you prepare animal protein, cut pieces into small portion sizes. For most meat and fish, one serving is about the size of one deck of cards. Eat at least 5 servings of fresh fruits and vegetables each day. To do this: ?Keep fruits and vegetables on hand for snacks. ?Eat 1 piece of fruit or a handful of berries with breakfast. ?Have a salad and fruit at lunch. ?Have two kinds of vegetables at dinner. Limit foods that are high in a substance called oxalate. These include: ?Spinach. ?Rhubarb. ?Beets. ?Potato chips and beninese fries. ?Nuts. If you regularly take a diuretic medicine, make sure to eat at least 1 2 fruits or vegetables high in potassium each day. These include: ?Avocado. ?Banana. ?[place], prune, carrot, or tomato juice. ?Baked potato. ?Cabbage. ?Beans and split peas. General instructions Drink enough fluid to keep your urine clear or pale yellow. This is the most important thing you can do. Talk to your health care provider and dietitian about taking daily supplements. Depending on your health and the cause of your kidney stones, you may be advised: ?Not to take supplements with vitamin C. ?To take a calcium supplement. ?To take a daily probiotic supplement. ?To take other supplements such as magnesium, fish oil, or vitamin B6. Take all medicines and supplements as told by your health care provider. Limit alcohol intake to no more than 1 drink a day for non women and 2 drinks a day for men. One drink equals 12 oz of beer, 5 oz of wine, or 1 oz of hard liquor. Lose weight if told by your health care provider. Work with your dietitian to find strategies and an eating plan that works best for you. What foods are not recommended? Limit your intake of the following foods, or as told by your dietitian. Talk to your dietitian about specific foods you should avoid based on the type of kidney stones and your overall health. Grains Breads. Bagels. Rolls. Baked goods. Salted crackers. Cereal. Pasta. Vegetables Spinach. Rhubarb. Beets. Canned vegetables. Pickles. Olives. Meats and other protein foods Nuts. Nut butters. Large portions of meat, poultry, or fish. Salted or cured meats. Deli meats. Hotdogs. Sausages. Dairy Cheese. Beverages Regular soft drinks. Regular vegetable juice. Seasonings and other foods Seasoning blends with salt. Salad dressings. Canned soups. Soy sauce. Ketchup. Barbecue sauce. Canned pasta sauce. Casseroles. Pizza. Lasagna. Frozen meals. Potato chips. [place] fries. Summary You can reduce your risk of kidney stones by making changes to your diet. The most important thing you can do is drink enough fluid. You should drink enough fluid to keep your urine clear or pale yellow. Ask your health care provider or dietitian how much protein from animal sources you should eat eachday, and also how much salt and calcium you should have each day. This information is not intended to replace advice given to you by your health care provider. Make sure you discuss any questions you have with your health care provider. Document Released: 12/06/2011 Document Revised: 12/01/2019 Document Reviewed: 07/22/2017 [employer] Patient Education 2020 [employer]. 06/06/2022 01:18:40 Ureteral Stent Implantation, Care After Ureteral Stent Implantation, Care After This sheet gives you information about how to care for yourself after your procedure. Your health care provider may also give you more specific instructions. If you have problems or questions, contact your health care provider. What can I expect after the procedure? After the procedure, it is common to have: Nausea. Mild pain when you urinate. You may feel this pain in your lower back or lower abdomen. The pain should stop within a few minutes after you urinate. This may last for up to 1 week. A small amount of blood in your urine for several days. Follow these instructions at home: Medicines Take byov-ekj-xjvgasl and prescription medicines only as told by your health care provider : ibuprofen alternated with tylenol every 6 hours as needed for pain. Oxybuytnin 5 mg 3 times a day as needed for bladder spasms, tamsulsoin 0.4mg daily for stent pain. AZO over the counter for burning with urination. If you were prescribed an antibiotic medicine, take it as told by your health care provider. Do notstop taking the antibiotic even if you start to feel better. Do not drive for 24 hours if you were given a sedative during your procedure. Ask your health care provider if the medicine prescribed to you requires you to avoid driving or using heavy machinery. Activity Rest as told by your health care provider. Avoid sitting for a long time without moving. Get up to take short walks every 1 2 hours. This is important to improve blood flow and breathing. Ask for help if you feel weak or unsteady. Return to your normal activities as told by your health care provider. Ask your health care provider what activities are safe for you. General instructions Watch for any blood in your urine. Call your health care provider if the amount of blood in your urine increases. If you have a catheter: ?Follow instructions from your health care provider about taking care of your catheter and collection bag. ?Do not take baths, swim, or use a hot tub until your health care provider approves. Ask your health care provider if you may take showers. You may only be allowed to take sponge baths. Drink enough fluid to keep your urine pale yellow. Do not use any products that contain nicotine or tobacco, such as cigarettes, e- cigarettes, and chewing tobacco. These can delay healing after surgery. If you need help quitting, ask your health careprovider. Keep all follow-up visits as told by your health care provider. This is important. Contact a health care provider if: You have pain that gets worse or does not get better with medicine, especially pain when you urinate. You have difficulty urinating. You feel nauseous or you vomit repeatedly during a period of more than 2 days after the procedure. Get help right away if: Your urine is dark red or has blood clots in it. You are leaking urine (have incontinence). The end of the stent comes out of your urethra. You cannot urinate. You have sudden, sharp, or severe pain in your abdomen or lower back. You have a fever. You have swelling or pain in your legs. You have difficulty breathing. Summary After the procedure, it is common to have mild pain when you urinate that goes away within a few minutes after you urinate. This may last for up to 1 week. Watch for any blood in your urine. Call your health care provider if the amount of blood in your urine increases. Take izfh-dce-qopgndr and prescription medicines only as told by your health care provider. Drink enough fluid to keep your urine pale yellow. This information is not intended to replace advice given to you by your health care provider. Make sure you discuss any questions you have with your health care provider. Document Released: 04/13/2014 Document Revised: 05/18/2019 Document Reviewed: 05/19/2019 [employer] Patient Education 2020 [employer]. Follow Up Care 06/05/2022 19:35:45 With:Vero Salcedo Address:Unknown When:06/12/2022 08:00:00 Comments:Jo Office Please call if you need to reschedule With:Kaitlynyolanda Beasley Address: [address] [place] [address]- Business (1) When:06/12/2022 14:30:00 [facility]04-11-2022 Hospital Discharge instructions Patient Education 12/03/2021 15:02:00 EU - Cystoscopy with Stent Removal Discharge Instructions (Custom) Cystoscopy with Stent Removal Voiding after the procedure: there may be some pain, burning, urgency, frequency and blood tinged urine following the procedure. These symptoms usually resolve within 2-5 days. Drink the amount of fluid it takes to keep the urine pink to yellow or clear in color. Drinking enough water and fluids will help to ease any discomfort after your procedure. If you are having problems that seem out of the ordinary, please call. If unable to contact your physician and you feel it is an emergency, go to the nearest emergency room or call 911 Diet you may resume your normal diet. Activity you may resume your normal activities Call if you have a fever over 100 degrees. Please call the office to schedule an abdominal X-ray and visit in about six months . Follow Up Care 11/21/2021 10:54:29 With:Walter COLBY Address: [address] [address] Business (1) When:6 months Comments:Call for followup appointment with an abdominal X-ray prior to your visit. [facility]03-30-2022 Hospital Discharge instructions Patient Education 11/21/2021 10:49:08 Kidney Stones, Ovhq-ec-Uopp Kidney Stones Kidney stones are rock-like masses that form inside of the kidneys. Kidneys are organs that make pee (urine). A kidney stone may move into other parts of the urinary tract, including: The tubes that connect the kidneys to the bladder (ureters). The bladder. The tube that carries urine out of the body (urethra). Kidney stones can cause very bad pain and can block the flow of pee. The stone usually leaves your body (passes) through your pee. You may need to have a doctor take out the stone. What are the causes? Kidney stones may be caused by: A condition in which certain glands make too much parathyroid hormone (primary hyperparathyroidism). A buildup of a type of crystals in the bladder made of a chemical called uric acid. The body makes uric acid when you eat certain foods. Narrowing (stricture) of one or both of the ureters. A kidney blockage that you were born with. Past surgery on the kidney or the ureters, such as gastric bypass surgery. What increases the risk? You are more likely to develop this condition if: You have had a kidney stone in the past. You have a family history of kidney stones. You do not drink enough water. You eat a diet that is high in protein, salt (sodium), or sugar. You are overweight or very overweight (obese). What are the signs or symptoms? Symptoms of a kidney stone may include: Pain in the side of the belly, right below the ribs (flank pain). Pain usually spreads (radiates) to the groin. Needing to pee often or right away (urgently). Pain when going pee (urinating). Blood in your pee (hematuria). Feeling like you may vomit (nauseous). Vomiting. Fever and chills. How is this treated? Treatment depends on the size, location, and makeup of the kidney stones. The stones will often pass out of the body through peeing. You may need to: Drink more fluid to help pass the stone. In some cases, you may be given fluids through an IV tube put into one of your veins at the hospital. Take medicine for pain. Make changes in your diet to help keep kidney stones from coming back. Sometimes, medical procedures are needed to remove a kidney stone. This may involve: A procedure to break up kidney stones using a beam of light (laser) or shock waves. Surgery to remove the kidney stones. Follow these instructions at home: Medicines Take dmtf-wgi-gdmucdr and prescription medicines only as told by your doctor. Ask your doctor if the medicine prescribed to you requires you to avoid driving or using heavy machinery. Eating and drinking Drink enough fluid to keep your pee pale yellow. You may be told to drink at least 8 10 glasses of water each day. This will help you pass the stone. If told by your doctor, change your diet. This may include: ?Limiting how much salt you eat. ?Eating more fruits and vegetables. ?Limiting how much meat, poultry, fish, and eggs you eat. Follow instructions from your doctor about eating or drinking restrictions. General instructions Collect pee samples as told by your doctor. You may need to collect a pee sample: ?24 hours after a stone comes out. ?8 12 weeks after a stone comes out, and every 6 12 months after that. Strain your pee every time you pee (urinate), for as long as told. Use the strainer that your doctor recommends. Do not throw out the stone. Keep it so that it can be tested by your doctor. Keep all follow-up visits as told by your doctor. This is important. You may need follow-up tests. How is this prevented? To prevent another kidney stone: Drink enough fluid to keep your pee pale yellow. This is the best way to prevent kidney stones. Eat healthy foods. Avoid certain foods as told by your doctor. You may be told to eat less protein. Stay at a healthy weight. Where to find more information National Kidney Foundation (NKF): www.kidney.org [facility] (U[facility]): www.urologyhealth.org Contact a doctor if: You have pain that gets worse or does not get better with medicine. Get help right away if: You have a fever or chills. You get very bad pain. You get new pain in your belly (abdomen). You pass out (faint). You cannot pee. Summary Kidney stones are rock-like masses that form inside of the kidneys. Kidney stones can cause very bad pain and can block the flow of pee. The stones will often pass out of the body through peeing. Drink enough fluid to keep your pee pale yellow. This information is not intended to replace advice given to you by your health care provider. Make sure you discuss any questions you have with your health care provider. Document Released: 01/27/2009 Document Revised: 12/28/2019 Document Reviewed: 12/28/2019 [employer] Patient Education 2020 [employer] 11/21/2021 10:49:07 Calorie Counting for Weight Loss Calorie Counting for Weight Loss Calories are units of energy. Your body needs a certain amount of calories from food to keep you going throughout the day. When you eat more calories than your body needs, your body stores the extra calories as fat. When you eat fewer calories than your body needs, your body cifuentes fat to get the energy it needs. Calorie counting means keeping track of how many calories you eat and drink each day. Calorie counting can be helpful if you need to lose weight. If you make sure to eat fewer calories than your bodyneeds, you should lose weight. Ask your health care provider what a healthy weight is for you. For calorie counting to work, you will need to eat the right number of calories in a day in order to lose a healthy amount of weight per week. A dietitian can help you determine how many calories youneed in a day and will give you suggestions on how to reach your calorie goal. A healthy amount of weight to lose per week is usually 1 2 lb (0.5 0.9 kg). This usually means thatyour daily calorie intake should be reduced by 500 750 calories. Eating 1,200 1,500 calories per day can help most women lose weight. Eating 1,500 1,800 calories per day can help most men lose weight. What is my plan? My goal is to have calories per day. If I have this many calories per day, I should lose around pounds per week. What do I need to know about calorie counting? In order to meet your daily calorie goal, you will need to: Find out how many calories are in each food you would like to eat. Try to do this before you eat. Decide how much of the food you plan to eat. Write down what you ate and how many calories it had. Doing this is called keeping a food log. To successfully lose weight, it is important to balance calorie counting with a healthy lifestyle that includes regular activity. Aim for 150 minutes of moderate exercise (such as walking) or 75 minutes of vigorous exercise (such as running) each week. Where do I find calorie information? The number of calories in a food can be found on a Nutrition Facts label. If a food does not have aNutrition Facts label, try to look up the calories online or ask your dietitian for help. Remember that calories are listed per serving. If you choose to have more than one serving of a food, you will have to multiply the calories per serving by the amount of servings you plan to eat. Forexample, the label on a package of bread might say that a serving size is 1 slice and that there are 90 calories in a serving. If you eat 1 slice, you will have eaten 90 calories. If you eat 2 slices, you will have eaten 180 calories. How do I keep a food log? Immediately after each meal, record the following information in your food log: What you ate. Don't forget to include toppings, sauces, and other extras on the food. How much you ate. This can be measured in cups, ounces, or number of items. How many calories each food and drink had. The total number of calories in the meal. Keep your food log near you, such as in a small notebook in your pocket, or use a mobile neo or website. Some programs will calculate calories for you and show you how many calories you have left forthe day to meet your goal. What are some calorie counting tips? Use your calories on foods and drinks that will fill you up and not leave you hungry: ?Some examples of foods that fill you up are nuts and nut butters, vegetables, lean proteins, and high-fiber foods like whole grains. High-fiber foods are foods with more than 5 g fiber per serving. ?Drinks such as sodas, specialty coffee drinks, alcohol, and juices have a lot of calories, yet do not fill you up. Eat nutritious foods and avoid empty calories. Empty calories are calories you get from foods or beverages that do not have many vitamins or protein, such as candy, sweets, and soda. It is better to have a nutritious high-calorie food (such as an avocado) than a food with few nutrients (such as a bag of chips). Know how many calories are in the foods you eat most often. This will help you calculate calorie counts faster. Pay attention to calories in drinks. Low-calorie drinks include water and unsweetened drinks. Pay attention to nutrition labels for low fat or fat free foods. These foods sometimes have thesame amount of calories or more calories than the full fat versions. They also often have added sugar, starch, or salt, to make up for flavor that was removed with the fat. Find a way of tracking calories that works for you. Get creative. Try different apps or programs ifwriting down calories does not work for you. What are some portion control tips? Know how many calories are in a serving. This will help you know how many servings of a certain food you can have. Use a measuring cup to measure serving sizes. You could also try weighing out portions on a kitchenscale. With time, you will be able to estimate serving sizes for some foods. Take some time to put servings of different foods on your favorite plates, bowls, and cups so you know what a serving looks like. Try not to eat straight from a bag or box. Doing this can lead to overeating. Put the amount you would like to eat in a cup or on a plate to make sure you are eating the right portion. Use smaller plates, glasses, and bowls to prevent overeating. Try not to multitask (for example, watch TV or use your computer) while eating. If it is time to eat, sit down at a table and enjoy your food. This will help you to know when you are full. It will also help you to be aware of what you are eating and how much you are eating. What are tips for following this plan? Reading food labels Check the calorie count compared to the serving size. The serving size may be smaller than what youare used to eating. Check the source of the calories. Make sure the food you are eating is high in vitamins and proteinand low in saturated and trans fats. Shopping Read nutrition labels while you shop. This will help you make healthy decisions before you decide to purchase your food. Make a grocery list and stick to it. Cooking Try to cook your favorite foods in a healthier way. For example, try baking instead of frying. Use low-fat dairy products. Meal planning Use more fruits and vegetables. Half of your plate should be fruits and vegetables. Include lean proteins like poultry and fish. How do I count calories when eating out? Ask for smaller portion sizes. Consider sharing an entree and sides instead of getting your own entree. If you get your own entree, eat only half. Ask for a box at the beginning of your meal and put the rest of your entree in it so you are not tempted to eat it. If calories are listed on the menu, choose the lower calorie options. Choose dishes that include vegetables, fruits, whole grains, low-fat dairy products, and lean protein. Choose items that are boiled, broiled, grilled, or steamed. Stay away from items that are buttered,battered, fried, or served with cream sauce. Items labeled crispy are usually fried, unless stated otherwise. Choose water, low-fat milk, unsweetened iced tea, or other drinks without added sugar. If you want an alcoholic beverage, choose a lower calorie option such as a glass of wine or light beer. Ask for dressings, sauces, and syrups on the side. These are usually high in calories, so you should limit the amount you eat. If you want a salad, choose a garden salad and ask for grilled meats. Avoid extra toppings like duque, cheese, or fried items. Ask for the dressing on the side, or ask for olive oil and vinegar or lemon to use as dressing. Estimate how many servings of a food you are given. For example, a serving of cooked rice is cup orabout the size of half a baseball. Knowing serving sizes will help you be aware of how much food you are eating at restaurants. The list below tells you how big or small some common portion sizes arebased on everyday objects: ?1 oz 4 stacked dice. ?3 oz 1 deck of cards. ?1 tsp 1 . ?1 Tbsp a ping-pong ball. ?2 Tbsp 1 ping-pong ball. ? cup baseball. ?1 cup 1 baseball. Summary Calorie counting means keeping track of how many calories you eat and drink each day. If you eat fewer calories than your body needs, you should lose weight. A healthy amount of weight to lose per week is usually 1 2 lb (0.5 0.9 kg). This usually means reducing your daily calorie intake by 500 750 calories. The number of calories in a food can be found on a Nutrition Facts label. If a food does not have aNutrition Facts label, try to look up the calories online or ask your dietitian for help. Use your calories on foods and drinks that will fill you up, and not on foods and drinks that will leave you hungry. Use smaller plates, glasses, and bowls to prevent overeating. This information is not intended to replace advice given to you by your health care provider. Make sure you discuss any questions you have with your health care provider. Document Released: 08/11/2006 Document Revised: 04/30/2019 Document Reviewed: 07/11/2017 [employer] Patient Education 2020 [employer]. Follow Up Care 10/30/2021 10:11:23 With:Walter COLBY MD, URL Address: When: Unknown [facility] Evaluation + Plan note Future Appointments Appointment Date:11/22/2021 11:00:00 AM Scheduled Provider: Location:[facility] Appointment Type:Urology CALL PAT FT Appointment Date:12/03/2021 02:30:00 PM Scheduled Provider: Location:[facility] Appointment Type:Urology FT Appointment Date:12/19/2021 09:15:00 AM Scheduled Provider:Kaylie RUDD MD Location:[facility] Appointment Type:BAD Follow Up Appointment Date:01/09/2022 09:30:00 AM Scheduled Provider:Walter COLBY MD Location:[facility] Appointment Type:URO Office Visit Future Scheduled Tests Radiology* XR Abdomen 1 View 09/03/21 [facility] Evaluation + Plan note Future Appointments Appointment Date:12/19/2021 09:15:00 AM Scheduled Provider:Kaylie RUDD MD Location:[facility] Appointment Type:[facility] Follow Up Appointment Date:01/09/2022 09:30:00 AM Scheduled Provider:Walter COLBY MD Location:[facility] Appointment Type:URO Office Visit Appointment Date:06/05/2022 01:00:00 PM Scheduled Provider:Walter COLBY MD Location:[facility] Appointment Type:URO Office Visit Future Scheduled Tests Radiology* XR Abdomen 1 [facility] App[facility]ments Appointment Date:06/05/2022 01:00:00 PM Scheduled Provider:Wal[facility] COLBY MD [facility] Office Visit Future Scheduled Tests Radiology* XR Abdomen 1 View 09/03/21 [facility] Evaluation + Plan note Future Appointments Appointment Date:07/29/2022 11:15:00 AM Scheduled Provider:Walter COLBY MD Location:[facility] Appointment Type:URO [facility] Future Appointments Appointment Date:07/29/2022 11:15:00 AM Scheduled Provider:Walter COLBY MD Location:[facility] Appointment Type:URO Office Visit Diagnostic Tests Pending * Urine Culture 06/14/22 [facility] Future Appointments Appointment Date:11/19/2022 09:30:00 AM Scheduled Provider:Walter COLBY MD Location:[facility] Appointment Type:URO Office Visit Appointment Date:11/28/2022 12:15:00 PM Scheduled Provider:Kaylie RUDD MD Location:[facility] Appointment Type:BADH Follow Up Future Scheduled Tests Laboratory* Total Protein 24 Hour Urine 11/04/22 [facility] Future Appointments Appointment Date:11/28/2022 12:15:00 PM Scheduled Provider:Kaylie RUDD MD Location:[facility] Appointment Type:BADH Follow Up Future Scheduled Tests Laboratory* Total Protein 24 Hour Urine 11/04/22 [facility] Evaluation note* Diagnosis Kidney stone- Primary Calculus of kidney documented in this encounter [facility] course Narrative No data available for this section [facility] Hospital Discharge instructions No data available for this section [facility] Progress note No data available for this section [facility] Health Summary Purpose Family History No Family History Records FoundNo Family History Records FoundNo Family History Records Found No data available for this section No Family History Records Found Advance Directives No Advanced Directives Records FoundNo Advanced Directives Records FoundNo Advanced Directives Records FoundNo Advanced Directives Records Found Additional Source Comments Care Team (unrecognized sect ion and content) Purchase Order Checker Relationship Specialty Start Date End Date Kaitlyn Beasley III, DO [address] [place] [address] Referring Family Medicine 05/02/23 INFORMATION SOURCE (unrecogn ized section and content) DATE CREATED AUTHOR 07/22/2022 [facility] DATE CREATED AUTHOR AUTHOR'S ORGANIZ ATION 11/30/2022 [facility] DATE CREATED AUTHOR AUTHOR'S ORGANIZ ATION 05/13/2023 [facility] DATE CREATED AUTHOR AUTHOR'S ORGANIZ ATION 08/14/2023 Carlos Ram[facility] Source Comments (unrecognize d section and content) In the event this informatio n is protected by the Federal Confidentiality of Alcohol and Drug Abuse Patient Records regulations: The Federal rules restrict any use of the information to criminally investigate or prosecute any alcohol or drug abuse patient.[facility] Reason for Visit (unrecogniz ed section and content) Reason Comments Kidney Problem FOR RECORDS PERTAINING TO PATIENTS WHO ARE OR HAVE BEEN ENROLLED IN A CHEMICAL DEPENDENCY/SUBSTANCEABUSE PROGRAM, SOME INFORMATION MAY BE OMITTED. This clinical summary was aggregated from multiple sources. Caution should be exercised in using it in the provision of clinical care. This summary normalizes information from multiple sources, and as a consequence, information in this document may materially change the coding, format and clinical context of patient data. In addition, data may be omitted in some cases. CLINICAL DECISIONS SHOULD BE BASED ON THE PRIMARY CLINICAL RECORDS. [email or web address] [facility]. provides no warranty or guarantee of the accuracy or completeness of information in this document.
[2023-08-21] MEDS: LACTATED RINGER'S SOLUTION 1,000 ML 50 ML IV ×2 (08:14→10:06)
[2023-08-21] MEDS: CEFAZOLIN SODIUM/DEXTROSE,ISO 1 GM/50 ML IV.SOLN IV (08:47)
--- NOTE | 2023-08-21 10:23 | P.URON_ITS ---
Urology Surgery Operative Note Operative Note Procedure Date: 08/21/23 Time Out Performed: yes Pre-op Diagnosis: Left nephrolithiasis; status post left stent placement Post-op Diagnosis: same as pre-op Procedures performed: 1. Cystoscopy. 2. Left stent changed to 6 [place] variable length. 3. Left rigid ureteral dilation. 4. Left ureteroscopy. 5. Left pyeloscopy. 6. Thulium laser lithotripsy of a large left renal stone burden; approximately 2 cm Anesthesia: General-LMA Primary Surgeon: Wu Khan Complications: None Estimated blood loss (mL): 5 Findings: Large left renal stone burden in the lower pole Specimens: None Drains: 6 [place] variable length left ureteral stent Detailed description of Procedure: The patient was brought to the operating room and placed on the operating room table in the supine position. SCDs were placed on the lower extremities and turned on and functioning during the entire case. Timeout was done by all parties in the room. We all agreed upon the patient's identification and the planned procedures for this patient. Genn. anesthesia was then administered. The patient was then repositioned into the modified dorsal lithotomy position. All pressure points were satisfactorily padded. Genitalia were sterilely prepped and draped in usual fashion. I started by passing a 22 [place] Olympus cystoscope per urethra and into the bladder. The non encrusted stent was identified. A flexible grasping forceps was passed and the end of the stent was grasped and brought out the urethral meatus. I then slid a Glidewire through the stent into the kidney and remove the old stent. The distal ureter was then further dilated with an 07/07 navigator ureteral access sheath. This was passed over the wire u p to the L5 level. The wire and stylette were then removed. I then passed a flexible ureteroscope through the access sheath and into the ureter. I then ascended up the ureter and then did pyeloscopy. I was able to get to the lower pole calyx where the large stone burden was. I then used a 270 ? thulium laser fiber and passed this through the scope. I then made contact with the stone and did laser lithotripsy in the dusting mode. I switched from dusting to fragmenting until this large stone was dusted entirely. I had to go to an adjacent calyx to finish pieces that bounced from calyx to calyx. Fluoroscopic assistance was used. Upon completion there was no visible formed a stone remaining; simply copious amounts of dust and tiny tiny gravel. I elected then to place a stent. The scope was then removed. I then passed a Glidewire through the access sheath into the kidney and removed the access sheath. The cystoscope was backloaded over the wire and passed into the bladder. I then slid a 6 [place] variable length ureteral stent over the wire into the kidney. The wire was removed and there were good curls in the kidney and in the bladder. The bladder was drained of its contents and the scope was then removed. She was then transferred to a [facility] bed and wheeled to PACU in stable condition.
[2023-08-21] MEDS: OXYBUTYNIN chloride 5 MG TABLET 10 MG PO (12:03)
== END 2023-08-21 12:21 | disposition home or self-care (01) ==
PROVIDERS: Visit Provider Urology
PROC: (CPT 918; principal; 2023-08-21 08:50)
DX: N20.0 Calculus of kidney (principal); F41.9 Anxiety disorder, unspecified; K21.9 Gastro-esophageal reflux disease without esophagitis; K58.9 Irritable bowel syndrome, unspecified; M79.7 Fibromyalgia; R31.9 Hematuria, unspecified; F17.290 Nicotine dependence, other tobacco product, uncomplicated; Z90.710 Acquired absence of both cervix and uterus; Z90.721 Acquired absence of ovaries, unilateral
CPT/HCPCS: 52356; 76000; J2704